=== PATIENT | male | born 1950 | race Caucasian/White ===

== ENCOUNTER 2017-08-03 09:51 | Inpatient (IN) | payer OTHER ==
[~2017-08-03] VITALS: Ht 165.1 cm; Wt 53.1 kg
[2017-08-03] MEDS ORDERED: ONDANSETRON 4 MG INJ IV STA (10:52)
[2017-08-03] MEDS ORDERED: INSULIN REGULAR, HUMAN 100 UNIT/1 ML 3ML VIAL SC ONE (11:00)
[2017-08-03] MEDS ORDERED: PANTOPRAZOLE 40 MG INJ IV ONE (11:00)
[2017-08-03] MEDS ORDERED: SOD CHLORIDE 0.9% 500 ML IV ONE (11:00)
--- NOTE | 2017-08-03 11:16 | ERA ---
ER Documentation Chief Complaint Date/Time DATE: 08/03/17 TIME: 11:12 Chief Complaint MISSED DIALYSIS, HIGH BGL HPI Patient is a 66-year-old male who presents with 2 days of generalized weakness and multiple episodes of vomiting. The patient states that he has been checking his blood sugar and it is been reading high. The patient is on dialysis, but missed dialysis on Friday due to transportation not arriving. Patient reports epigastric pain. He denies fever, cough, shortness of breath, chest pain. ROS All systems reviewed and are negative except as per history of present illness. Medications Home Meds Reported Medications Pantoprazole* (Pantoprazole*) 40 Mg Tablet.dr, 40 MG PO AC BREAKFAST DINNER, TAB 08/03/17 Megestrol Acetate* (Megestrol Acetate*) 400 Mg/10 Ml Susp, 10 MG PO DAILY, ML 08/03/17 Calcium Acetate* (Calcium Acetate*) 667 Mg Capsule, 1334 MG PO WITH MEALS, #60 CAP 08/03/17 Glipizide* (Glipizide*) 10 Mg Tablet, 10 MG PO AC BREAKFAST DINNER, TAB 08/03/17 Insulin Aspart (Novolog Mix (70/30)) 100 Units/Ml Soln, 0 SC WITH BREAKFAST DINNE, EA TAKE 25 UNITS-QAM AND 20 UNITS-QPM 08/03/17 Discontinued Scripts Cephalexin* (Keflex*) 500 Mg Capsule, 500 MG PO QID for 7 Days, CAP Prov:VANESSA CORREA MD 08/03/17 Allergies Allergies: Coded Allergies: No Known Allergy (Unverified , 08/03/17) PMhx/Soc Past medical history: Diabetes mellitus, end-stage renal disease Past surgical history: Left arm fistula Social history: Denies tobacco or alcohol. Hx Miscellaneous Medical Probl: Yes (kidney failure, htn, dm) Hx Alcohol Use: No Hx Substance Use: No Hx Tobacco Use: No Smoking Status: Never smoker FmHx Noncontributory Physical Exam Vitals Vital Signs Date Time Temp Pulse Resp B/P Pulse Ox O2 Delivery O2 Flow Rate FiO2 08/03/17 16:07 92 18 167/78 100 08/03/17 15:00 96 18 187/76 100 08/03/17 13:31 88 18 100 21 08/03/17 13:13 91 18 207/87 96 08/03/17 12:27 87 18 174/75 96 08/03/17 10:29 98.7 88 18 178/84 96 Physical Exam Const: Alert, ill-appearing, Vomiting coffee-ground emesis Head: Atraumatic Eyes: Normal Conjunctiva, Mild pallor, no icterus ENT: Normal External Ears, Nose and Mouth.Tacky mucous membranes Neck: Full range of motion..~ No meningismus. Resp: Clear to auscultation bilaterally, No wheezes, no rales Cardio: Tachycardia, regular rhythm, no murmurs Abd: Soft, Tender in the epigastrium, non distended. Skin: No petechiae or rashes Back: No midline or flank tenderness Ext: No cyanosis, 1+ pitting edema bilateral shins, mild edema to bilateral hands Neur: Awake and alert, Cranial nerves II through XII intact bilaterally, strength and sensation full in 4 extremities Psych: Normal Mood and Affect Result Diagram: 08/03/17 1102 08/03/17 1102 Results 24 hrs Laboratory Tests Test 08/03/17 09:56 08/03/17 10:51 08/03/17 11:02 08/03/17 12:21 Bedside Glucose > 595mg/dL > 595mg/dL Blood Gas Specimen Source Blood venous Arterial Blood Date Drawn 08/03/2017 12:09:50 PM Arterial Blood Gas Puncture Site OTHER [place] Test N/A Venous Blood pH 7.215 Venous Blood pCO2 (Temp Corrected) 36.3mmHG Venous Blood pO2 (Temp Corrected) 45.0mmHG Venous Blood HCO3 14.4mmol/L Venous Blood Oxygen Saturation 77.3mmHG Venous Blood Base Excess -12.5mmol/L Venous Blood Total Hemoglobin 10.9g/dl Venous Blood Oxyhemoglobin 76.8% Venous Blood Methemoglobin 0.3% Carboxyhemoglobin 0.3% Blood Gas Temperature 37.0C Blood Gas Modality ROOM AIR FiO2 21.0% Blood Gas Notified Whom CW Blood Gas Notified Time 08/03/2017 12:16:51 PM White Blood Count 8.710^3/ul Red Blood Count 3.0110^6/ul Hemoglobin 9.8g/dl Hematocrit 27.6% Mean Corpuscular Volume 91.7fl Mean Corpuscular Hemoglobin 32.6pg Mean Corpuscular Hemoglobin Concent 35.5g/dl Red Cell Distribution Width 12.1% Platelet Count 9710^3/UL Mean Platelet Volume 13.5fl Neutrophils % 92.1% Lymphocytes % 2.9% Monocytes % 4.4% Eosinophils % 0.1% Basophils % 0.2% Nucleated Red Blood Cells % 0.0/100WBC Neutrophils # (Manual) 8.010^3/ul Lymphocytes # 0.310^3/ul Monocytes # 0.410^3/ul Eosinophils # 0.010^3/ul Basophils # 0.010^3/ul Nucleated Red Blood Cells # 0.010^3/ul Prothrombin Time 13.5Sec Prothrombin Time Ratio 1.1 INR International Normalized Ratio 1.03 Activated Partial Thromboplast Time 24.4Sec Sodium Level 121mmol/L Potassium Level 6.1mmol/L Chloride Level 85mmol/L Carbon Dioxide Level 13mmol/L Anion Gap 29 Blood Urea Nitrogen 57mg/dl Creatinine 8.06mg/dl Glucose Level 1224mg/dl Lactic Acid Level 3.2mmol/L Calcium Level 7.7mg/dl Total Bilirubin 0.2mg/dl Direct Bilirubin 0.00mg/dl Indirect Bilirubin 0.2mg/dl Acetone Level (Chemistry) Aspartate Amino Transf (AST/SGOT) 20IU/L Alanine Aminotransferase (ALT/SGPT) 29IU/L Alkaline Phosphatase 124IU/L Troponin I 0.014ng/ml Total Protein 5.7g/dl Albumin 3.5g/dl Globulin 2.20g/dl Albumin/Globulin Ratio 1.59 Lipase 82U/L Test 08/03/17 14:19 08/03/17 15:45 Bedside Glucose > 595mg/dL > 595mg/dL Current Medications Medications (Trade) Dose Ordered Sig/Lise Route PRN Reason Start Time Stop Time Status Last Admin Dose Admin Sodium Chloride (NS) 500 ml @ 500 mls/hr Q1H ONCE IV 08/03/17 11:00 08/03/17 11:59 DC 08/03/17 11:00 Pantoprazole (Protonix Iv) 40 mg ONCE ONCE IV 08/03/17 11:00 08/03/17 11:01 DC 08/03/17 12:15 Ondansetron HCl (Zofran Inj) 4 mg ONCE STAT IV 08/03/17 10:52 08/03/17 10:54 DC 08/03/17 12:14 Insulin Human Regular (Humulin R) 5 unit ONCE ONCE SC 08/03/17 11:00 08/03/17 11:01 DC 08/03/17 12:18 Insulin Human Regular (Humulin R) 5 unit ONCE ONCE IV 08/03/17 13:00 08/03/17 13:01 DC 08/03/17 13:01 Albuterol (Proventil 0.083% (Neb)) 5 mg ONCE STAT HHN 08/03/17 12:40 08/03/17 12:43 DC 08/03/17 13:31 Miscellaneous Information 1 ea NOTE XX 08/03/17 13:00 Glucose (Glutose) 15 gm Q15M PRN PO DECREASED GLUCOSE 08/03/17 13:00 Glucose (Glutose) 22.5 gm Q15M PRN PO DECREASED GLUCOSE 08/03/17 13:00 Dextrose (D50w Syringe) 25 ml Q15M PRN IV DECREASED GLUCOSE 08/03/17 13:00 Dextrose (D50w Syringe) 50 ml Q15M PRN IV DECREASED GLUCOSE 08/03/17 13:00 Glucagon (Glucagen) 1 mg Q15M PRN IM DECREASED GLUCOSE 08/03/17 13:00 Glucose 15 gm 15 gm Q15M PRN BUCCAL DECREASED GLUCOSE 08/03/17 13:00 Insulin Human Regular/Sodium Chloride (Novolin-R/NS) 100 ml @ 0 mls/hr TITRATE STAT IV 08/03/17 13:45 08/03/17 13:46 DC 08/03/17 14:25 Pantoprazole (Protonix Tab) 40 mg QAM PO 08/04/17 09:00 UNV Calcium Acetate (Phoslo) 1,334 mg AC MEALS PO 08/03/17 17:30 Miscellaneous Information (* Miscellaneous Pharmacy Order) Discontinue all previ... PROTOCOL ONCE XX 08/03/17 16:30 08/03/17 16:31 Diagnostic Test (Pha) 1 ea 1 ea Q1H XX 08/03/17 16:30 Insulin Human Regular/Sodium Chloride (Novolin-R/NS) 100 ml @ 0 mls/hr PER PROTOCOL IV 08/03/17 17:00 Insulin Aspart (Novolog Insulin Pen) 3 unit WITH MEALS SC 08/03/17 18:00 UNV Miscellaneous Information (* Miscellaneous Pharmacy Order) Treatment of Hypoglycemia: 1.BG 51... Per protocol XX 08/03/17 16:30 Dextrose (D50w Syringe) 25 ml Q15M PRN IV Till BS 80 mg/dL or above x2 08/03/17 16:30 Dextrose (D50w Syringe) 50 ml Q15M PRN IV Till BS 80 mg/dL or above x2 08/03/17 16:30 Procedures/MDM EKG read by me: Time 1333, rate 88 Rhythm: Normal sinus [place]: Normal Intervals: Normal ST-T waves: no ischemic changes Ectopy: No Q-waves: No Impression: No evidence of ischemia or arrhythmia MDM: Patient is a 66-year-old male with end-stage renal disease and type 1 diabetes who presents to the ER with 2 days of generalized weakness and vomiting. He was found to have elevated blood sugar at greater than 1200, and acidosis with ketosis. These findings are consistent with DKA. The patient was found to have an elevated potassium and was given IV insulin and albuterol. The patient was given a small bolus of fluid due to underlying end-stage renal disease and concern for causing volume overload. The patient missed dialysis yesterday and will need inpatient dialysis. He was started on insulin drip for DKA. The patient is anuric. He has no fever or leukocytosis. He does have a slightly elevated lactic acid, but there is no evidence of infectious source on exam or chest x-ray. He was found to have coffee-ground emesis and was given IV pantoprazole.Despite elevated lactic acid, septic workup was not performed and he was not given large volume IV fluids due to concern for volume overload. He will be admitted to the ICU for treatment of DKA and dialysis for correction of fluid status. He will need repeat hemoglobins and further GI workup. Critical Care Time: 40 minutes Treatments/Evaluations: Close monitoring and treatment of unstable vital signs, cardiorespiratory, and neurologic status, while maintaining tight balance of fluid, respiratory, and cardiac interventions. This time includes discussing the case with the patient and the patient's family. This time does not include all procedures stated elsewhere in this record. This time also includes reviewing old records, labs and radiological studies. This time includes examining and re-examining the patient. Additionally, this time also includes arranging care with admitting and consulting physicians. Departure Diagnosis: Primary Impression: Diabetic ketoacidosis Qualified Code: E10.10 - Diabetic ketoacidosis without coma associated with type 1 diabetes mellitus Additional Impressions: Hyperkalemia Hyponatremia Upper GI bleed End stage renal disease Condition: Serious VANESSA CORREA MD Aug 03, 2017 11:16
[2017-08-03 11:39] LABS: ABNORMAL IP MESSAGE 1; BASOPHILS % 0.2 % (0.0-2.0); EOSINOPHILS % 0.1 % (0.0-7.0); HEMATOCRIT 27.6 % (42.0-52.0); HEMOGLOBIN 9.8 g/dl (14.0-18.0); LYMPHOCYTES # 0.3 10^3/ul (0.8-2.9); LYMPHOCYTES % 2.9 % (15.0-51.0); MEAN CORPUSCULAR HEMOGLOBIN 32.6 pg (29.0-33.0); MEAN CORPUSCULAR HGB CONC 35.5 g/dl (32.0-37.0); MEAN CORPUSCULAR VOLUME 91.7 fl (82.0-101.0); MEAN PLATELET VOLUME 13.5 fl (7.4-10.4); MONOCYTE # 0.4 10^3/ul (0.3-0.9); MONOCYTES % 4.4 % (0.0-11.0); NEUTROPHILS % 92.1 % (39.0-77.0); PLATELET COUNT 97 10^3/UL (140-415); POSITIVE DIFF @See below; RED BLOOD COUNT 3.01 10^6/ul (4.70-6.10); RED CELL DISTRIBUTION WIDTH 12.1 % (11.5-14.5); WHITE BLOOD COUNT 8.7 10^3/ul (4.8-10.8)
[2017-08-03 12:07] LABS: INR 1.03; PROTIME 13.5 Sec (12.2-14.2); PT RATIO 1.1
[2017-08-03 12:08] LABS: PARTIAL THROMBOPLASTIN TIME 24.4 Sec (25.0-35.0)
[2017-08-03 12:17] LABS: MODE ROOM AIR; MetHgb Venous 0.3 %; Sample Type Blood venous; Venous COHb 0.3 %; Venous Fraction OxyHgb 76.8 %; Venous Total Hemglobin 10.9 g/dl
--- NOTE | 2017-08-03 12:19 | RADRPT ---
PROCEDURE: Chest radiograph CLINICAL INDICATION: Hyperglycemia.. COMPARISON: None relevant listed. TECHNIQUE: Single frontal chest radiograph. FINDINGS: The lungs are clear. No pleural effusion or focal parenchymal opacity. The cardiomediastinal silhouette is normal. No suspicious bone lesion. Stent within the left upper extremity. IMPRESSION: No acute cardiopulmonary abnormality. RPTAT: PP Physician Michelle Date Time Electronically viewed and signed by Vasquez Gamez Physician on 08/03/2017 12:19 LG/
[2017-08-03 12:23] LABS: ALBUMIN 3.5 g/dl (3.3-4.9); ALBUMIN/GLOBULIN RATIO 1.59; BILIRUBIN,INDIRECT 0.2 mg/dl (0-1.1); BILIRUBIN,TOTAL 0.2 mg/dl (0.2-1.3); CALCIUM 7.7 mg/dl (8.4-10.2); CREATININE 8.06 mg/dl (0.61-1.24); TOTAL PROTEIN 5.7 g/dl (6.1-8.1)
[2017-08-03 12:35] LABS: TROPONIN-I 0.014 ng/ml (0.00-0.12)
[2017-08-03] MEDS ORDERED: ALBUTEROL 0.083% (NEB) 2.5 MG/3 ML AMP HHN STA (12:40)
[2017-08-03] MEDS ORDERED: GLUCAGON 1 MG INJ IM PRN (13:00)
[2017-08-03] MEDS ORDERED: GLUCOSE GEL 15 GRAM TUBE PO PRN ×2 (13:00)
[2017-08-03] MEDS ORDERED: GLUCOSE GEL 15 GRAM TUBE BUCCAL PRN (13:00)
[2017-08-03] MEDS ORDERED: DEXTROSE 50% 50 ML SYRINGE IV PRN ×4 (13:00→16:30)
[2017-08-03] MEDS ORDERED: INSULIN REGULAR, HUMAN 100 UNIT/1 ML 3ML VIAL IV ONE (13:00)
[2017-08-03 13:15] LABS: POTASSIUM 6.1 mmol/L (3.5-5.1)
[2017-08-03] MEDS ORDERED: NOVMIX SC (13:31)
[2017-08-03] MEDS ORDERED: GLIP-95 PO (13:32)
[2017-08-03] MEDS ORDERED: CALC667C PO (13:32)
[2017-08-03] MEDS ORDERED: PANT40TA4 PO (13:34)
[2017-08-03] MEDS ORDERED: MEG40/1 PO (13:34)
[2017-08-03] MEDS ORDERED: INSULIN HUMAN REGULAR 100 UNIT in SOD CHLORIDE 0.9% 99 ML IV STA (13:45)
[2017-08-03] MEDS ORDERED: CEPH-443 PO (14:18)
--- NOTE | 2017-08-03 16:27 | HP ---
Date/Time of Note Date/Time of Note DATE: 08/03/17 TIME: 16:20 Assessment/Plan VTE Prophylaxis VTE Prophylaxis Intervention: SCD's Assessment/Plan Problems: (1) Uncontrolled type 1 diabetes mellitus with ESRD (end-stage renal disease) Status: Chronic Comment: He has been given some fluids although with his end-stage renal disease he will be as dehydrated as a regular patients. He will be on insulin drip and will need intensive care unit monitoring. He will need to follow his electrolytes. His note the potassium 6.1 will go down with the IV insulin therapy. Regarding his end-stage renal disease he will be seen by his regular customer expert Dr. Clinton Samaniego who I have spoken to about the patient already (2) Lactic acidemia Status: Acute Comment: It is unclear what the cause of this is. He has been cultured and will observe him closely. (3) Thrombocytopenia Status: Chronic Comment: Patient thrombocytopenia is unknown. I actually suspect he may have some degree of cirrhosis and will watch him carefully (4) Anemia Status: Chronic Comment: Likely partially due to his end-stage renal disease. He Epogen as per nephrology Qualifiers: Anemia type: unspecified type Qualified Code: D64.9 - Anemia, unspecified type (5) Onychomycosis Status: Chronic Comment: Lamisil pulse therapy HPI/ROS Admit Date/Time Admit Date/Time August 03, 2017 Hx of Present Illness 66-year-old gentleman who [facility] roughly [facility]. He had establish with dialysis through [facility] with Dr. Laureano Samaniego. Patient is a very poor historian at this time. He has missed at least one episode of dialysis. He came into the emergency room complaining that he needed a physician who needed to read his mind. On evaluation with our emergency department is found to have a blood sugar of 1221 with a modest decrease in bicarb and elevated lactic acid. Other labs are pending at this time. He reports that he does not have much in the way of other medical problems although I am not entirely certain that this is a valid claim ROS Constitutional: no complaints (Eyes fevers chills or sweats) Eyes: no complaints (Denies any ophthalmologic (no eye disease goes with diabetic kidney disease I doubt that he has normal ophthalmologic history () ENT: no complaints Respiratory: no complaints (He denies any cough shortness of breath wheezing) Cardiovascular: no complaints (As any cardiac history and denies any chest pain ) Gastrointestinal: no complaints (Ports no history of GI tract illness although on my exam I suspect he may have portal hypertension) Genitourinary: no complaints Musculoskeletal: no complaints Skin: no complaints Neurologic: confusion Lymphatic: no complaints PMH/Family/Social Past Medical History Diabetes for over 3 decades. He reports he previously been on Lantus with mealtime Humalog. He reports that 2 years ago this was switched to 70/30 insulin 25 units before breakfast 20 units before dinner. He has end-stage renal disease on dialysis. Denies any other medical problems at this time Past Surgical History Left arm dialysis shunt Family History Significant Family History: no pertinent family hx Social History Alcohol Use: none Smoking Status: Never smoker Drug Use: none Exam/Review of Systems Vital Signs Vitals Vital Signs Date Time Temp Pulse Resp B/P Pulse Ox O2 Delivery O2 Flow Rate FiO2 08/03/17 16:07 92 18 167/78 100 08/03/17 13:31 21 08/03/17 10:29 98.7 Exam Exam Is arousable his orientation waxes and wanes Head: atraumatic, normocephalic Eyes: EOMI, nl conjunctiva, nl lids (His left lid droops.), nl sclera, other ( Fundi were not visualized) ENMT: mucosa pink and moist, nl external ears & nose, nl lips & teeth, nl nasal mucosa & septum Neck: non-tender, supple Respiratory: clear to auscultation, normal air movement Cardiovascular: nl pulses, regular rate and rhythm Gastrointestinal: soft, splenomegaly (Believe he has splenomegaly) Musculoskeletal: nl extremities to inspection, nl gait and stance Extremities: normal pulses Neurological: CLINICAL PROFESSOR II-XII intact, confused, nl strength Labs Result Diagram: 08/03/17 1102 08/03/17 1102 Medications Medications Current Medications Miscellaneous Information 1 ea NOTE XX ; Start 08/03/17 at 13:00 Glucose (Glutose) 15 gm Q15M PRN PO DECREASED GLUCOSE; Start 08/03/17 at 13:00 Glucose (Glutose) 22.5 gm Q15M PRN PO DECREASED GLUCOSE; Start 08/03/17 at 13:00 Dextrose (D50w Syringe) 25 ml Q15M PRN IV DECREASED GLUCOSE; Start 08/03/17 at 13:00 Dextrose (D50w Syringe) 50 ml Q15M PRN IV DECREASED GLUCOSE; Start 08/03/17 at 13:00 Glucagon (Glucagen) 1 mg Q15M PRN IM DECREASED GLUCOSE; Start 08/03/17 at 13:00 Glucose (Glutose) 15 gm Q15M PRN BUCCAL DECREASED GLUCOSE; Start 08/03/17 at 13: 00 Pantoprazole (Protonix Tab) 40 mg DAILY@06 PO ; Start 08/04/17 at 06:00 Miscellaneous Information (* Miscellaneous Pharmacy Order) Discontinue all previ... PROTOCOL ONCE XX ; Start 08/03/17 at 16:30; Stop 08/03/17 at 16:31 Diagnostic Test (Pha) (Accu-Chek) 1 ea Q1H XX ; Start 08/03/17 at 16:30 Dextrose (D50w Syringe) 25 ml Q15M PRN IV Till BS 80 mg/dL or above x2; Start 08/03/17 at 16:30 Dextrose (D50w Syringe) 50 ml Q15M PRN IV Till BS 80 mg/dL or above x2; Start 08/03/17 at 16:30 KRISSY CARRANZA MD Aug 03, 2017 16:27
[2017-08-03] MEDS ORDERED: DOCUSATE SODIUM 100 MG CAP PO PRN (16:30)
[2017-08-03] MEDS ORDERED: ACETAMINOPHEN 325 MG TAB PO PRN (16:30)
[2017-08-03] MEDS ORDERED: BISACODYL 10 MG SUPP PR PRN (16:30)
[2017-08-03] MEDS ORDERED: NACL 0.9% 3 ML SYG IV SCH (16:30)
[2017-08-03] MEDS ORDERED: ONDANSETRON 4 MG TAB PO PRN (16:30)
[2017-08-03] MEDS: INSULIN HUMAN REGULAR 100 UNIT in SOD CHLORIDE 0.9% 99 ML IV SCH (16:45)
[2017-08-03] MEDS: ACCU-CHEK XX SCH ×7 (16:45→23:21)
[2017-08-03] MEDS ORDERED: VANCOMYCIN 1 GM in NS 250 ML IVPB SCH (17:00)
[2017-08-03] MEDS ORDERED: VANCOMYCIN IV PER PHARMACY XX SCH (17:00)
[2017-08-03 17:19] LABS: CALCIUM 8.4 mg/dl (8.4-10.2); CREATININE 9.04 mg/dl (0.61-1.24); POTASSIUM 4.9 mmol/L (3.5-5.1)
--- NOTE | 2017-08-03 17:46 | RADRPT ---
PROCEDURE: CT Brain without contrast. CLINICAL INDICATION: Evaluate for subdural hematoma. TECHNIQUE: A CT of the brain was performed on a multidetector CT scanner utilizing axial sections from the skull base through the vertex without contrast. Images were reviewed on a high-resolution Smart[employer] workstation. Exam CTDI = 42.93 mGy and the DLP = 720.23 mGy-cm. One or the following dose reduction techniques were used: -Automated exposure control. -Adjustment of the mA and/or KV according to patient's size. -Use of iterative reconstruction technique COMPARISON: None available FINDINGS: Mild diffuse cerebral and cerebellar atrophy is present. There is proportionate dilatation of the v entricular system and sulci in a symmetric fashion. There is prominence of the extraaxial spaces sec ondary to atrophy. There is no evidence of intracranial hemorrhage, mass effect or midline shift. N o abnormal intra-axial or extra-axial fluid collections are seen. There is a punctate extra-axial c alcification just lateral to the left superior temporal gyrus. The density of the brain is normal a nd the oliva/white matter differentiation is well preserved. Mild patchy diffuse deep white matter m icroangiopathic ischemic change is seen. The paranasal sinuses and mastoid air cells appear aerated . Osseous calvarium appears intact. There is a tiny left parietal scalp hematoma present.. Vascul ar calcifications are identified. IMPRESSION: 1. No evidence of acute intracranial pathology. No evidence of acute intracranial hemorrhage. 2. Age-related volume loss and small vessel ischemic changes. 3. Tiny left parietal scalp hematoma. 4. Punctate extra-axial calcification just lateral to the left superior temporal gyrus. 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 5. Intracranial atherosclerosis. RPTAT: [facility] Physician Mazin Date Time Electronically viewed and signed by Physician Mazin on 08/03/2017 17:45 /
[2017-08-03] MEDS: CALCIUM ACETATE 667 MG CAP PO SCH (19:21)
[2017-08-03] MEDS: INSULIN ASPART [NOVOLOG] 3 ML PEN SC SCH (19:22)
[2017-08-03 19:35] LABS: ALBUMIN 3.9 g/dl (3.3-4.9); ALBUMIN/GLOBULIN RATIO 1.56; BILIRUBIN,INDIRECT 0.1 mg/dl (0-1.1); BILIRUBIN,TOTAL 0.1 mg/dl (0.2-1.3); CALCIUM 8.4 mg/dl (8.4-10.2); CREATININE 9.05 mg/dl (0.61-1.24); POTASSIUM 4.5 mmol/L (3.5-5.1); TOTAL PROTEIN 6.4 g/dl (6.1-8.1)
[2017-08-03] MEDS: AMLODIPINE 2.5 MG TAB PO SCH (20:41)
[2017-08-03] MEDS: TERBINAFINE 250 MG TAB PO SCH (20:41)
[2017-08-03 21:24] LABS: CALCIUM 8.4 mg/dl (8.4-10.2); CREATININE 9.11 mg/dl (0.61-1.24); POTASSIUM 4.2 mmol/L (3.5-5.1)
[2017-08-04] VITALS (38 sets, daily range): BP systolic 110–179; BP diastolic 55–91; PULSE 74–95; RESP 10–22; TEMP 98.5; Ht 165.1 cm; Wt 53.1 kg
[2017-08-04] MEDS: ACCU-CHEK XX SCH ×11 (00:30→09:30)
[2017-08-04 00:41] LABS: CALCIUM 8.7 mg/dl (8.4-10.2); CREATININE 9.26 mg/dl (0.61-1.24)
[2017-08-04] MEDS: INSULIN HUMAN REGULAR 100 UNIT in SOD CHLORIDE 0.9% 99 ML IV SCH ×2 (01:25→07:18)
[2017-08-04] MEDS ORDERED: hydrALAzine 20 MG INJ IV PRN (04:00)
[2017-08-04] MEDS ORDERED: DEXTROSE 5% 1,000 ML IV SCH (06:00)
[2017-08-04] MEDS: PANTOPRAZOLE (EC) 40 MG TAB PO SCH (06:12)
[2017-08-04 06:31] LABS: BASOPHILS % 0.1 % (0.0-2.0); EOSINOPHILS # 0.1 10^3/ul (0.0-0.5); EOSINOPHILS % 0.9 % (0.0-7.0); HEMATOCRIT 27.1 % (42.0-52.0); LYMPHOCYTES # 0.9 10^3/ul (0.8-2.9); LYMPHOCYTES % 9.6 % (15.0-51.0); MEAN CORPUSCULAR HEMOGLOBIN 31.6 pg (29.0-33.0); MEAN CORPUSCULAR HGB CONC 36.9 g/dl (32.0-37.0); MEAN CORPUSCULAR VOLUME 85.8 fl (82.0-101.0); MONOCYTE # 1.2 10^3/ul (0.3-0.9); MONOCYTES % 13.2 % (0.0-11.0); NEUTROPHILS % 75.9 % (39.0-77.0); PLATELET COUNT 112 10^3/UL (140-415); RED BLOOD COUNT 3.16 10^6/ul (4.70-6.10); RED CELL DISTRIBUTION WIDTH 11.8 % (11.5-14.5)
[2017-08-04 06:49] LABS: ALBUMIN 3.4 g/dl (3.3-4.9); ALBUMIN/GLOBULIN RATIO 1.25; CREATININE 9.23 mg/dl (0.61-1.24); POTASSIUM 3.8 mmol/L (3.5-5.1); TOTAL PROTEIN 6.1 g/dl (6.1-8.1)
[2017-08-04 06:57] LABS: T3 UPTAKE 38.7 % (23.5-40.5)
[2017-08-04] MEDS: CALCIUM ACETATE 667 MG CAP PO SCH ×3 (07:05→18:02)
[2017-08-04 07:10] LABS: THYROID STIMULATING HORMONE 1.6 MIU/L (0.465-4.680)
[2017-08-04] MEDS: INSULIN ASPART [NOVOLOG] 3 ML PEN SC SCH ×3 (07:35→18:00)
[2017-08-04] MEDS ORDERED: INSULIN GLARGINE [LANtus] 3 ML PEN SC SCH (08:00)
--- NOTE | 2017-08-04 08:04 | CONS ---
DATE OF ADMISSION: 08/03/2017 DATE OF CONSULTATION: 08/04/2017 TYPE OF CONSULTATION: Nephrology REASON FOR CONSULTATION: End-stage renal disease. HISTORY OF PRESENT ILLNESS: This is a 66-year-old male with a past medical history of end-stage renal disease on dialysis Friday, , Friday. Access is a left AV fistula. His primary envelope folder, Dr. Miguel Samaniego. The patient came to the Emergency Room for apparent altered mental status. The patient, in the Emergency Room was complaining about weakness, had multiple episodes of vomiting. The patient, upon arrival, had an elevated blood sugar level of greater than 1000. He was placed on an insulin drip and admitted to the Intensive Care Unit. While in the Intensive Care Unit, the patient had improvement in his serum glucose levels (have come down now to within normal limits of 79. The patient denies any hemoptysis, hematemesis or hematochezia. PAST MEDICAL HISTORY: History of end-stage renal disease, history of diabetes, history of anemia, mineral bone disorder. PAST SURGICAL HISTORY: The patient has a left arm AV fistula. MEDICATIONS: The patient's medications have been reviewed. FAMILY HISTORY: Noncontributory. SOCIAL HISTORY: He does not drink, smoke or do drugs. REVIEW OF SYSTEMS: A 14-point review of systems conducted. Pertinent positives are stated in the HPI and otherwise negative. PHYSICAL EXAMINATION: VITAL SIGNS: Blood pressure is 152/73. Respirations 11. Pulse 77. Temperature 98.3. HEENT: Head is normocephalic. NECK: Supple. HEART: Regular rate. LUNGS: Showed diminished breath sounds at base. ABDOMEN: Soft. Nontender to palpation. No rebound or guarding. EXTREMITIES: Negative for clubbing, cyanosis. No edema. DERMATOLOGIC: No rashes. MUSCULOSKELETAL: No joint effusion. NEUROLOGIC: No change in exam. LABORATORY: Data shows sodium 127, potassium 4.0, chloride 88, BUN 72, creatinine 9.26, glucose is 614. White count 8.7, hemoglobin 9.8, hematocrit 27.8, and platelet count 97. ABG was reviewed. IMAGING STUDIES: CT scan of the brain showed no acute findings. History of healed neurocysticercosis. Chest x-ray shows no acute findings. IMPRESSION AND PLAN: This is a 58-year-old male who presents with: 1. End-stage renal disease. The patient is on dialysis Friday, , Friday, with access left arteriovenous fistula. Plan for hemodialysis today and tomorrow. We will dialyze with a 3-hour, 3K bath, calcium 2.5, ultrafiltration as tolerated. 2. Anemia of end-stage renal disease. We will monitor hemoglobin and hematocrit levels and give Epogen with hemodialysis. 3. Hyponatremia. Etiology in part due to end-stage renal disease in conjunction with hypoglycemia. The patient be dialyzed with 140 sodium bath. 4. Mineral bone disorder. Monitor calcium and phosphorus levels. 5. Uncontrolled diabetes. The patient remains on insulin drip. I greatly appreciate Endocrinology's evaluation. We will follow up recommendations. 6. Lactic acidosis. Etiology is unclear. Repeat a lactic acid level. Possibly related to underlying systemic inflammatory response syndrome. Thank you for this interesting consult. It will be a pleasure to follow the patient with you throughout the hospital course. Dictated By: Michael Baker DO /joey/arturo /Document#: [id number]
[2017-08-04] MEDS: AMLODIPINE 2.5 MG TAB PO SCH (08:42)
[2017-08-04] MEDS: TERBINAFINE 250 MG TAB PO SCH ×2 (09:00→21:43)
[2017-08-04] MEDS: LINAGLIPTIN 5 MG TABLET PO SCH (09:26)
--- NOTE | 2017-08-04 10:32 | RADRPT ---
PROCEDURE: Complete abdominal and retroperitoneum ultrasound. CLINICAL INDICATION: Rule out cirrhosis and portal hypertension. Abdominal pain. Elevated LFTs. TECHNIQUE: Valdovinos scale and color doppler ultrasound images of the abdomen and retroperitoneum. COMPARISON: None FINDINGS: Liver: Size:15.9 cm Morphology:Normal. Echogenicity:Normal. Focal lesions: None. Portal vein: Patent. Hepatic veins:Patent. Biliary System: Gallbladder:Gallbladder wall thickening with minimal pericholecystic fluid. Gallstones:None. Biliary dilatation:None. CBD diameter: 5.3 mm Pancreas: Pancreatic head:Normal. Pancreatic body/tail:Not visualized. Focal lesion:None. Spleen: Size (length):10.10 cm Appearance:Normal. Focal lesions:None. Kidneys: Right kidney length: 7.0 cm Left kidney length: 7.0 cm Echogenicity:Normal. Hydronephrosis:None. Focal lesions:None. Aorta and IVC: Diameter:Normal. Blood flow:Normal. Abdominal cavity: Free fluid:None. Other findings:None. IMPRESSION: 1. Mild gallbladder wall thickening with normal pericholecystic fluid. Please consider HIDA scan f or more complete assessment to definitively exclude acute cholecystitis. 2. No liver or spleen abnormality is identified at this time. RPTAT: PP .Luis Mae MD, Date Time Electronically viewed and signed by .Luis Mae MD, MD on 08/04/2017 10:32 .B/
--- NOTE | 2017-08-04 13:55 | PN ---
Date/Time of Note Date/Time of Note DATE: 08/04/17 TIME: 13:42 Assessment/Plan Lines/Catheters IV Catheter Type (from [facility]): Peripheral IV Urinary Cath still in place: No Assessment/Plan Assessment/Plan 1. HONK 2. Lactic acidosis 3. ESRD 4. thrombocytopenia 5. HYponatremia PLAN: Tele transfer Off insulin drip Subjective 24 Hr Interval Summary Free Text/Dictation Patient seen and examined. now off insulin drip, lethargic, tolerating diet per nursing Exam/Review of Systems Vital Signs Vitals Vital Signs Date Time Temp Pulse Resp B/P Pulse Ox O2 Delivery O2 Flow Rate FiO2 08/04/17 12:00 98.0 86 10 138/72 100 Room Air 08/03/17 13:31 21 Intake and Output 08/03/17 08/03/17 08/04/17 15:00 23:00 07:00 Intake Total 112.0 ml Balance 112.0 ml Results Result Diagram: 08/04/17 0540 08/04/17 0540 Results 24 hrs Laboratory Tests Test 08/03/17 14:19 08/03/17 15:45 08/03/17 16:29 08/03/17 16:50 Bedside Glucose > 595 *H > 595 *H > 595 *H Sodium Level 123 L Potassium Level 4.9 Chloride Level 82 L Carbon Dioxide Level 16 L Anion Gap 30 H Blood Urea Nitrogen 68 H Creatinine 9.04 H Glucose Level 1235 *H Lactic Acid Level 5.6 *H Calcium Level 8.4 Test 08/03/17 17:32 08/03/17 19:08 08/03/17 19:42 08/03/17 20:53 Bedside Glucose > 595 *H > 595 *H Sodium Level 124 L 125 L Potassium Level 4.5 4.2 Chloride Level 83 L 87 L Carbon Dioxide Level 17 L 19 L Anion Gap 29 H 23 H Blood Urea Nitrogen 65 H 65 H Creatinine 9.05 H 9.11 H Glucose Level 1114 *H 936 #*H Calcium Level 8.4 8.4 Total Bilirubin 0.1 L Direct Bilirubin 0.00 Indirect Bilirubin 0.1 Aspartate Amino Transf (AST/SGOT) 23 Alanine Aminotransferase (ALT/SGPT) 23 Alkaline Phosphatase 118 Total Protein 6.4 Albumin 3.9 Globulin 2.50 Albumin/Globulin Ratio 1.56 Test 08/03/17 23:19 08/04/17 00:04 9/4/17 03:18 08/04/17 04:36 Bedside Glucose > 595 *H 289 H 147 Sodium Level 127 L Potassium Level 4.0 Chloride Level 88 L Carbon Dioxide Level 23 Anion Gap 20 H Blood Urea Nitrogen 72 H Creatinine 9.26 H Glucose Level 614 #*H Calcium Level 8.7 Test 08/04/17 05:31 08/04/17 05:40 08/04/17 06:35 08/04/17 07:03 Bedside Glucose 79 47 *L 137 White Blood Count 9.0 Red Blood Count 3.16 L Hemoglobin 10.0 L Hematocrit 27.1 L Mean Corpuscular Volume 85.8 Mean Corpuscular Hemoglobin 31.6 Mean Corpuscular Hemoglobin Concent 36.9 Red Cell Distribution Width 11.8 Platelet Count 112 L Mean Platelet Volume 12.0 H Neutrophils % 75.9 Lymphocytes % 9.6 L Monocytes % 13.2 H Eosinophils % 0.9 Basophils % 0.1 Nucleated Red Blood Cells % 0.0 Neutrophils # (Manual) 6.9 Lymphocytes # 0.9 Monocytes # 1.2 H Eosinophils # 0.1 Basophils # 0.0 Nucleated Red Blood Cells # 0.0 Sodium Level 132 L Potassium Level 3.8 Chloride Level 92 L Carbon Dioxide Level 24 Anion Gap 20 H Blood Urea Nitrogen 75 H Creatinine 9.23 H Glucose Level 70 # Lactic Acid Level 2.7 *H Calcium Level 9.0 Phosphorus Level 5.7 H Total Bilirubin 0.0 L Direct Bilirubin 0.00 Indirect Bilirubin 0.0 Aspartate Amino Transf (AST/SGOT) 20 Alanine Aminotransferase (ALT/SGPT) 26 Alkaline Phosphatase 84 Total Protein 6.1 Albumin 3.4 Globulin 2.70 Albumin/Globulin Ratio 1.25 Thyroid Stimulating Hormone (TSH) 1.600 Free Thyroxine Index 2.28 Thyroxine (T4) 5.9 Triiodothyronine (T3) Uptake 38.7 Test 08/04/17 07:14 08/04/17 08:45 08/04/17 11:52 Bedside Glucose 128 106 178 Medications Medications Current Medications Miscellaneous Information 1 ea NOTE XX ; Start 08/03/17 at 13:00 Glucose (Glutose) 15 gm Q15M PRN PO DECREASED GLUCOSE; Start 08/03/17 at 13:00 Glucose (Glutose) 22.5 gm Q15M PRN PO DECREASED GLUCOSE; Start 08/03/17 at 13:00 Dextrose (D50w Syringe) 25 ml Q15M PRN IV DECREASED GLUCOSE; Start 08/03/17 at 13:00 Dextrose (D50w Syringe) 50 ml Q15M PRN IV DECREASED GLUCOSE Last administered on 08/04/17 06:42; Admin Dose 50 ML; Start 08/03/17 at 13:00 Glucagon (Glucagen) 1 mg Q15M PRN IM DECREASED GLUCOSE; Start 08/03/17 at 13:00 Glucose (Glutose) 15 gm Q15M PRN BUCCAL DECREASED GLUCOSE; Start 08/03/17 at 13: 00 Pantoprazole (Protonix Tab) 40 mg DAILY@06 PO Last administered on 08/04/17 06: 12; Admin Dose 40 MG; Start 08/04/17 at 06:00 Dextrose (D50w Syringe) 25 ml Q15M PRN IV Till BS 80 mg/dL or above x2; Start 08/03/17 at 16:30 Dextrose (D50w Syringe) 50 ml Q15M PRN IV Till BS 80 mg/dL or above x2; Start 08/03/17 at 16:30 Terbinafine HCl (Lamisil) 250 mg BID PO Last administered on 08/03/17 20:41; Admin Dose 250 MG; Start 08/03/17 at 21:00; Stop 08/10/17 at 20:59 Ondansetron HCl (Zofran Tab) 4 mg Q6H PRN PO NAUSEA AND/OR VOMITING; Start 08/03 at 16:30 Acetaminophen (Tylenol Tab) 650 mg Q6H PRN PO PAIN LEVEL 1-3 OR FEVER; Start at 16:30 Docusate Sodium (Colace) 100 mg Q12H PRN PO CONSTIPATION; Start 08/03/17 at 16: 30 Bisacodyl (Dulcolax Supp) 10 mg DAILY PRN [place] CONSTIPATION; Start 08/03/17 at 16: 30 Amlodipine Besylate (Norvasc) 2.5 mg DAILY PO Last administered on 08/03/17 20: 41; Admin Dose 2.5 MG; Start 08/03/17 at 20:30 Hydralazine HCl 10 mg 10 mg Q4H PRN IV For SBP > 160; Start 08/04/17 at 04:00 Dextrose (D5W) 1,000 ml @ 50 mls/hr Q20H IV Last administered on 08/04/17 06: 07; Admin Dose 50 MLS/HR; Start 08/04/17 at 06:00 Linagliptin (Tradjenta) 5 mg DAILY PO Last administered on 08/04/17 09:26; Admin Dose 5 MG; Start 08/04/17 at 09:00 Insulin Glargine (Lantus) 4 unit BID@08,20 SC Last administered on 08/04/17 09: 28; Admin Dose 4 UNIT; Start 08/04/17 at 08:00 Miscellaneous Information (*Rx Drug Level Order Reminder*) RANDOM VANCOMYCIN LEVEL ... ONCE ONCE XX ; Start 08/05/17 at 05:00; Stop 08/05/17 at 05:01 ROXANNA CHAVEZ Aug 04, 2017 13:53
[2017-08-04] MEDS ORDERED: SOD CHLORIDE 0.9% 1,000 ML IV SCH (14:00)
[2017-08-04] MEDS ORDERED: INSULIN GLARGINE [LANtus] 3 ML PEN SC ONE (18:00)
[2017-08-04] MEDS ORDERED: INSULIN ASPART [NOVOLOG] 3 ML PEN SC ONE (18:00)
[2017-08-04] MEDS: INSULIN GLARGINE [LANtus] 3 ML PEN SC SCH (20:16)
[2017-08-05] VITALS (23 sets, daily range): BP systolic 110–203; BP diastolic 55–90; PULSE 83–99; RESP 11–20
[2017-08-05] MEDS: PANTOPRAZOLE (EC) 40 MG TAB PO SCH (05:12)
[2017-08-05 05:27] LABS: BASOPHILS % 0.4 % (0.0-2.0); EOSINOPHILS # 0.1 10^3/ul (0.0-0.5); EOSINOPHILS % 1.3 % (0.0-7.0); HEMATOCRIT 29.6 % (42.0-52.0); HEMOGLOBIN 10.2 g/dl (14.0-18.0); LYMPHOCYTES % 13.7 % (15.0-51.0); MEAN CORPUSCULAR HEMOGLOBIN 30.9 pg (29.0-33.0); MEAN CORPUSCULAR HGB CONC 34.5 g/dl (32.0-37.0); MEAN CORPUSCULAR VOLUME 89.7 fl (82.0-101.0); MEAN PLATELET VOLUME 12.5 fl (7.4-10.4); MONOCYTE # 0.8 10^3/ul (0.3-0.9); MONOCYTES % 10.9 % (0.0-11.0); NEUTROPHILS % 73.1 % (39.0-77.0); PLATELET COUNT 114 10^3/UL (140-415); RED CELL DISTRIBUTION WIDTH 12.5 % (11.5-14.5)
--- NOTE | 2017-08-05 05:47 | HP ---
DATE OF ADMISSION: 08/03/2017 HISTORY OF PRESENT ILLNESS: The patient has been seen and examined today. He has now turned off the insulin drip and he tolerated his breakfast per the staff. However, he reports poor appetite for lunch. He does remain quite lethargic and weak. He tells me he was ambulatory prior to hospitalization, but feels he is too weak to walk right now. PHYSICAL EXAMINATION: VITAL SIGNS: Temperature 98.0, pulse 86, respirations 10, blood pressure 138/72, saturation 100 percent on room air. GENERAL: Lethargic male, alert, oriented, calm, in no distress. HEENT: Head normocephalic. Pupils equal and reactive. Mucous membranes slightly dry. Pharynx . NECK: Supple. CHEST: Clear with diminished breath sounds bilaterally. HEART: S1, S2 without added sounds or murmurs. ABDOMEN: Soft, nontender, nondistended, normoactive bowel sounds. EXTREMITIES: No lower extremity edema. SKIN: Negative for rash. LABORATORY DATA: Serum sodium 132, which is improved from prior, his creatinine is 9.23, BUN 75, lactic acid 2.7, which is elevated. The rest is unremarkable. Thyroid profile is normal today. Phosphorus is elevated. CBC has normal white count with a chronic normocytic anemia and mild thrombocytopenia with a platelet count of 112. There are no neutrophils predominance and there are no bands. IMAGING: He did have an abdominal ultrasound that showed mild gallbladder wall thickening with normal pericholecystic . HIDA scan definitely active cholecystitis. No abnormality. The last chest x-ray was yesterday and it showed no acute pulmonary abnormality. ASSESSMENT: A 66-year-old male, who has presented to the emergency room with 2 days of generalized weakness and vomiting. 1. that is now improved, status post insulin drip, now off insulin drip. 2. 3. End-stage renal disease on hemodialysis. 4. Hyponatremia that is now improved. 5. Thrombocytopenia. 6. History of lactic acidosis likely secondary to number 1. PLAN: . Continue diabetic diet and insulin therapy. I appreciate endocrinology input in the management of this patient. Continue monitoring and checking lactic acid levels and continue supportive care. . For prophylaxis . Dictated By: Lyndon Rowe MD /joey/hang /Document#: [id number]
[2017-08-05 06:03] LABS: CALCIUM 8.6 mg/dl (8.4-10.2); CREATININE 6.31 mg/dl (0.61-1.24); PHOSPHORUS 5.1 mg/dl (2.5-4.9)
[2017-08-05] MEDS: INSULIN GLARGINE [LANtus] 3 ML PEN SC SCH ×2 (08:48→20:17)
[2017-08-05] MEDS: INSULIN ASPART [NOVOLOG] 3 ML PEN SC SCH ×3 (08:48→17:46)
[2017-08-05] MEDS: CALCIUM ACETATE 667 MG CAP PO SCH ×3 (08:57→17:38)
[2017-08-05] MEDS: TERBINAFINE 250 MG TAB PO SCH ×2 (09:16→20:19)
[2017-08-05] MEDS: LINAGLIPTIN 5 MG TABLET PO SCH (09:16)
[2017-08-05] MEDS: AMLODIPINE 2.5 MG TAB PO SCH (09:16)
--- NOTE | 2017-08-05 09:58 | PN ---
DATE: 08/05/2017 SUBJECTIVE DATA: The patient is clinically improving. Had hemodialysis yesterday, tolerated well. OBJECTIVE DATA: VITAL SIGNS: Blood pressure is 133/88, respirations 15, pulse 86, temperature 98.5. HEENT: Head is normocephalic. NECK: Supple. HEART: Regular rate. LUNGS: Show diminished breath sounds at the base. ABDOMEN: Soft, nontender to palpation. No rebound or guarding. EXTREMITIES: Negative for clubbing, cyanosis. No edema. DERMATOLOGIC: Clean. No rashes. MUSCULOSKELETAL: No joint effusion. NEUROLOGIC: No change in exam. LABORATORY AND DIAGNOSTIC DATA: Shows sodium 139, potassium 4.0, BUN 39, creatinine 6.31. White count 7.0, hemoglobin 10.2, crit 29.6, platelet count is 114. ASSESSMENT AND PLAN: 1. End-stage renal disease. The patient is on dialysis Friday, , Friday. Will have dialysis again today to keep on schedule. Dialyze 3 hours, 3 potassium bath, calcium 2.5. 2. Anemia of end-stage renal disease. Monitor H and H levels. We will give Epogen with hemodialysis. 3. Hyponatremia, resolved. 4. Metabolic bone disorder. Continue to monitor calcium and phosphorus levels. 5. Diabetes, improved. Continue current medical management. Follow up with Endocrinology. 6. Lactic acidosis, improved. Etiology is unclear. 7. Gallbladder wall thickening. Rule out acute cholecystitis. The patient is pending a possible HIDA scan. Dictated By: Michael Baker DO /joey/[email or web address] /Document#: [id number]
[2017-08-05] MEDS: VANCOMYCIN 1 GM in NS 250 ML IVPB SCH ×2 (11:00→12:53)
--- NOTE | 2017-08-05 13:19 | CONS ---
Date/Time of Note Date/Time of Note DATE: 08/05/17 TIME: 13:13 Assessment/Plan Assessment/Plan Problems: (1) Sepsis syndrome Status: Acute Comment: Patient presented to the hospital with alteration in mental status, tachycardia, dehydration, hyperglycemia out of control, elevated white count, and lactic acidosis. With dialysis, hydration, antibiotics he has resolved his parameters and now is close to baseline state. Please note his database remains a challenge and he is relatively new to the physicians here. (2) Uncontrolled type 1 diabetes mellitus with ESRD (end-stage renal disease) Status: Chronic Comment: Sugar control has improved. This was H at bedtime as opposed to DKA. The question is raised as to what might of set this off. His abdominal ultrasound is not perfectly normal I will go ahead and order the HIDA scan to complete the evaluation (3) Lactic acidemia Status: Resolved Comment: Resolved (4) Thrombocytopenia Status: Chronic Comment: This persists. I am concerned this may represent underlying liver disease. (5) Anemia Status: Chronic Comment: Noted. At least part of this is due to his chronic renal failure. Qualifiers: Anemia type: unspecified type Qualified Code: D64.9 - Anemia, unspecified type (6) Onychomycosis Status: Chronic Comment: On pulse therapy now Consultation Date/Type/Reason Admit Date/Time Aug 03, 2017 at 16:31 Initial Consult Date August 05, 2017 Type of Consultation: Endocrinology Reason for Consultation Diabetes mellitus type 2 with hyperosmolar hyper glycemic state; end-stage renal disease; probable sepsis syndrome Referring Provider: ROXANNA CHAVEZ 24 HR Interval Summary Free Text/Dictation Older gentleman is feeling better than when he was admitted to the hospital on August 03, 2017. Blood sugar control has improved according to the patient. Constitutional: improved Detailed Summary Respiratory: no complaints Cardiovascular: no complaints Gastrointestinal: no complaints Genitourinary: no complaints Exam/Review of Systems Vital Signs Vitals Vital Signs Date Time Temp Pulse Resp B/P Pulse Ox O2 Delivery O2 Flow Rate FiO2 08/05/17 12:05 83 08/05/17 11:00 98.6 18 152/72 100 Room Air 08/03/17 13:31 21 Intake and Output 08/04/17 08/04/17 08/05/17 15:00 23:00 07:00 Intake Total 1260 ml 760 ml 350 ml Output Total 3500 ml 0 ml 0 ml Balance -2240 ml 760 ml 350 ml Exam Modestly oriented gentleman in no kassandra distress Neck: non-tender, supple Respiratory: clear to auscultation, normal air movement Gastrointestinal: nl liver, spleen, soft Results Result Diagram: 08/05/17 0421 08/05/17 0421 Results 24 hrs Laboratory Tests Test 08/04/17 17:32 08/04/17 20:14 08/05/17 00:13 08/05/17 04:21 Bedside Glucose 304 H 251 H 87 White Blood Count 7.0 # Red Blood Count 3.30 L Hemoglobin 10.2 L Hematocrit 29.6 L Mean Corpuscular Volume 89.7 Mean Corpuscular Hemoglobin 30.9 Mean Corpuscular Hemoglobin Concent 34.5 Red Cell Distribution Width 12.5 Platelet Count 114 L Mean Platelet Volume 12.5 H Neutrophils % 73.1 Lymphocytes % 13.7 L Monocytes % 10.9 Eosinophils % 1.3 Basophils % 0.4 Nucleated Red Blood Cells % 0.0 Neutrophils # (Manual) 5.1 Lymphocytes # 1.0 Monocytes # 0.8 Eosinophils # 0.1 Basophils # 0.0 Nucleated Red Blood Cells # 0.0 Sodium Level 139 Potassium Level 4.0 Chloride Level 102 # Carbon Dioxide Level 29 Anion Gap 12 # Blood Urea Nitrogen 39 #H Creatinine 6.31 #H Glucose Level 61 L Lactic Acid Level 1.3 Calcium Level 8.6 Phosphorus Level 5.1 H Magnesium Level 2.0 Random Vancomycin Level 9.8 Test 08/05/17 05:09 08/05/17 08:45 08/05/17 11:52 Bedside Glucose 78 199 175 Medications Medications Current Medications Miscellaneous Information 1 ea NOTE XX ; Start 08/03/17 at 13:00 Glucose (Glutose) 15 gm Q15M PRN PO DECREASED GLUCOSE; Start 08/03/17 at 13:00 Glucose (Glutose) 22.5 gm Q15M PRN PO DECREASED GLUCOSE; Start 08/03/17 at 13:00 Dextrose (D50w Syringe) 25 ml Q15M PRN IV DECREASED GLUCOSE; Start 08/03/17 at 13:00 Dextrose (D50w Syringe) 50 ml Q15M PRN IV DECREASED GLUCOSE Last administered on 08/04/17t 06:42; Admin Dose 50 ML; Start 08/03/17 at 13:00 Glucagon (Glucagen) 1 mg Q15M PRN IM DECREASED GLUCOSE; Start 08/03/17 at 13:00 Glucose (Glutose) 15 gm Q15M PRN BUCCAL DECREASED GLUCOSE; Start 08/03/17 at 13: 00 Pantoprazole (Protonix Tab) 40 mg DAILY@06 PO Last administered on 08/05/17 05: 12; Admin Dose 40 MG; Start 08/04/17 at 06:00 Dextrose (D50w Syringe) 25 ml Q15M PRN IV Till BS 80 mg/dL or above x2; Start 08/03/17 at 16:30 Dextrose (D50w Syringe) 50 ml Q15M PRN IV Till BS 80 mg/dL or above x2; Start 08/03/17 at 16:30 Terbinafine HCl (Lamisil) 250 mg BID PO Last administered on 08/05/17 09:16; Admin Dose 250 MG; Start 08/03/17 at 21:00; Stop 08/10/17 at 20:59 Acetaminophen (Tylenol Tab) 650 mg Q6H PRN PO PAIN LEVEL 1-3 OR FEVER; Start at 16:30 Docusate Sodium (Colace) 100 mg Q12H PRN PO CONSTIPATION; Start 08/03/17 at 16: 30 Bisacodyl (Dulcolax Supp) 10 mg DAILY PRN [place] CONSTIPATION; Start 08/03/17 at 16: 30 Amlodipine Besylate (Norvasc) 2.5 mg DAILY PO Last administered on 08/05/17 09: 16; Admin Dose 2.5 MG; Start 08/03/17 at 20:30 Hydralazine HCl (Apresoline) 10 mg Q4H PRN IV For SBP > 160 Last administered on 08/05/17 06:34; Admin Dose 10 MG; Start 08/04/17 at 04:00 Linagliptin (Tradjenta) 5 mg DAILY PO Last administered on 08/05/17 09:16; Admin Dose 5 MG; Start 08/04/17 at 09:00 Insulin Glargine 8 unit 8 unit BID@08,20 SC Last administered on 08/05/17 08:48 ; Admin Dose 8 UNIT; Start 08/04/17 at 20:00 Vancomycin HCl (Vancocin) 250 ml @ 125 mls/hr ONCE IVPB Last administered on t 12:53; Admin Dose 125 MLS/HR; Start 08/05/17 at 10:30; Stop 08/05/17 at 16 :00 KRISSY CARRANZA MD Aug 05, 2017 13:19
--- NOTE | 2017-08-05 21:42 | RADRPT ---
PROCEDURE: HIDA scan CLINICAL INDICATION: 66 -year-old patient with abdominal pain. TECHNIQUE: Following the intravenous injection of 8.8 mCi of Tc-99m Mebrofenin, multiple anterior dynamic images of the abdomen along with numerous planar spot images of the abdomen were obtained up to 90 minutes post injection. COMPARISON: No prior HIDA scans. FINDINGS: The liver is promptly visualized, demonstrates homogeneous distribution of radionuclide. There is a visualization of the common bile duct, gallbladder and gastrointestinal activity within n ormal time. IMPRESSION: No evidence to suggest the presence of common bile or cystic ducts obstruction. RPTAT: QQ .Garima Mccullough MD, MD Date Time Electronically viewed and signed by .Garima Mccullough MD, on 08/05/2017 21:41 .L/
[2017-08-06] VITALS (7 sets, daily range): BP systolic 114–183; BP diastolic 55–99; PULSE 73–81; RESP 18
[2017-08-06] MEDS: PANTOPRAZOLE (EC) 40 MG TAB PO SCH (05:18)
[2017-08-06 07:47] LABS: BASOPHILS % 0.5 % (0.0-2.0); EOSINOPHILS # 0.1 10^3/ul (0.0-0.5); EOSINOPHILS % 2.1 % (0.0-7.0); HEMATOCRIT 32.9 % (42.0-52.0); HEMOGLOBIN 10.9 g/dl (14.0-18.0); LYMPHOCYTES # 1.5 10^3/ul (0.8-2.9); LYMPHOCYTES % 26.2 % (15.0-51.0); MEAN CORPUSCULAR HEMOGLOBIN 31.1 pg (29.0-33.0); MEAN CORPUSCULAR HGB CONC 33.1 g/dl (32.0-37.0); MEAN CORPUSCULAR VOLUME 93.7 fl (82.0-101.0); MEAN PLATELET VOLUME 12.9 fl (7.4-10.4); MONOCYTE # 0.7 10^3/ul (0.3-0.9); MONOCYTES % 12.4 % (0.0-11.0); NEUTROPHILS % 58.5 % (39.0-77.0); PLATELET COUNT 120 10^3/UL (140-415); RED BLOOD COUNT 3.51 10^6/ul (4.70-6.10); RED CELL DISTRIBUTION WIDTH 12.4 % (11.5-14.5); WHITE BLOOD COUNT 5.7 10^3/ul (4.8-10.8)
[2017-08-06] MEDS: LINAGLIPTIN 5 MG TABLET PO SCH (08:05)
[2017-08-06] MEDS: TERBINAFINE 250 MG TAB PO SCH (08:05)
[2017-08-06] MEDS: CALCIUM ACETATE 667 MG CAP PO SCH ×2 (08:05→12:27)
[2017-08-06] MEDS: AMLODIPINE 2.5 MG TAB PO SCH (08:06)
[2017-08-06] MEDS: INSULIN GLARGINE [LANtus] 3 ML PEN SC SCH (08:06)
[2017-08-06 08:10] LABS: CALCIUM 8.7 mg/dl (8.4-10.2); CREATININE 5.26 mg/dl (0.61-1.24); PHOSPHORUS 4.4 mg/dl (2.5-4.9); POTASSIUM 3.6 mmol/L (3.5-5.1)
[2017-08-06] MEDS: INSULIN ASPART [NOVOLOG] 3 ML PEN SC SCH ×2 (08:20→12:33)
--- NOTE | 2017-08-06 09:59 | PN ---
DATE: 08/06/2017 SUBJECTIVE DATA: The patient is stable. No events overnight. No fevers, chills, nausea, vomiting. OBJECTIVE DATA: VITAL SIGNS: Blood pressure is 183/99, respirations 18, pulse 84, temperature 98.5. HEENT: Head is normocephalic. NECK: Supple. HEART: Regular rate. LUNGS: Diminished breath sounds at the base. ABDOMEN: Soft, nontender to palpation. No rebound or guarding. EXTREMITIES: Negative for clubbing, cyanosis. No edema. DERMATOLOGIC: No rashes. MUSCULOSKELETAL: No joint effusion. NEUROLOGIC: No change in exam. MEDICATIONS: Reviewed. LABORATORY AND DIAGNOSTIC DATA: Sodium 140, potassium 3.6, chloride 102, BUN 28, creatinine 5.26. White count 5.7, hemoglobin 10.9, hematocrit 32.9, platelet count is 122,000. ASSESSMENT AND PLAN: 1. End-stage renal disease. Patient is on dialysis Friday, , and Friday. Plan for dialysis tomorrow. 2. Anemia, end-stage renal disease. Monitor hemoglobin and hematocrit levels. Continue Epogen. 3. Hyponatremia resolved. 4. Metabolic bone disorder. Monitor calcium and phosphorus levels. 5. Diabetes. Continue improved. Follow up with Endocrinology. 6. Lactic acidosis. Improved. 7. Gallbladder wall thickening. The patient's is being ruled out for acute cholecystitis. HIDA scan was negative. Dictated By: Michael Baker DO /joey/david /Document#: [id number]
--- NOTE | 2017-08-06 11:39 | EN ---
Date/Time of Note Date/Time of Note Event Note Medicine Medicine Event Note LATE PROGRESS NOTE DATE OF SERVICE: 08/05/17 SUBJECTIVE: patient feeling lethargic, has not been ambulant yet OBJECTIVE: Vitals Vital Signs Date Time Temp Pulse Resp B/P Pulse Ox O2 Delivery O2 Flow Rate FiO2 08/05/17 12:05 83 08/05/17 11:00 98.6 18 152/72 100 Room Air 08/03/17 13:31 21 Intake and Output 08/04/17 08/04/17 08/05/17 15:00 23:00 07:00 Intake Total 1260 ml 760 ml 350 ml Output Total 3500 ml 0 ml 0 ml Balance -2240 ml 760 ml 350 ml Exam Constitutional: alert, oriented, Lethargic, cachectic Head: atraumatic, normocephalic Neck: non-tender, supple Respiratory: clear to auscultation Cardiovascular: regular rate and rhythm Gastrointestinal: S/ NT / ND / +BS Extremities: no edema, good radial pulses Results Result Diagram: 08/05/17 0421 08/05/17 0421 Results 24 hrs Laboratory Tests Test 08/04/17 17:32 08/04/17 20:14 08/05/17 00:13 08/05/17 04:21 Bedside Glucose 304 H 251 H 87 White Blood Count 7.0 # Red Blood Count 3.30 L Hemoglobin 10.2 L Hematocrit 29.6 L Mean Corpuscular Volume 89.7 Mean Corpuscular Hemoglobin 30.9 Mean Corpuscular Hemoglobin Concent 34.5 Red Cell Distribution Width 12.5 Platelet Count 114 L Mean Platelet Volume 12.5 H Neutrophils % 73.1 Lymphocytes % 13.7 L Monocytes % 10.9 Eosinophils % 1.3 Basophils % 0.4 Nucleated Red Blood Cells % 0.0 Neutrophils # (Manual) 5.1 Lymphocytes # 1.0 Monocytes # 0.8 Eosinophils # 0.1 Basophils # 0.0 Nucleated Red Blood Cells # 0.0 Sodium Level 139 Potassium Level 4.0 Chloride Level 102 # Carbon Dioxide Level 29 Anion Gap 12 # Blood Urea Nitrogen 39 #H Creatinine 6.31 #H Glucose Level 61 L Lactic Acid Level 1.3 Calcium Level 8.6 Phosphorus Level 5.1 H Magnesium Level 2.0 Random Vancomycin Level 9.8 Test 08/05/17 05:09 08/05/17 08:45 08/05/17 11:52 Bedside Glucose 78 199 175 Medications Medications Current Medications Miscellaneous Information 1 ea NOTE XX ; Start 08/03/17 at 13:00 Glucose (Glutose) 15 gm Q15M PRN PO DECREASED GLUCOSE; Start 08/03/17 at 13:00 Glucose (Glutose) 22.5 gm Q15M PRN PO DECREASED GLUCOSE; Start 08/03/17 at 13:00 Dextrose (D50w Syringe) 25 ml Q15M PRN IV DECREASED GLUCOSE; Start 08/03/17 at 13:00 Dextrose (D50w Syringe) 50 ml Q15M PRN IV DECREASED GLUCOSE Last administered on 08/04/17 06:42; Admin Dose 50 ML; Start 08/03/17 at 13:00 Glucagon (Glucagen) 1 mg Q15M PRN IM DECREASED GLUCOSE; Start 08/03/17 at 13:00 Glucose (Glutose) 15 gm Q15M PRN BUCCAL DECREASED GLUCOSE; Start 08/03/17 at 13: 00 Pantoprazole (Protonix Tab) 40 mg DAILY@06 PO Last administered on 08/05/17 05: 12; Admin Dose 40 MG; Start 08/04/17 at 06:00 Dextrose (D50w Syringe) 25 ml Q15M PRN IV Till BS 80 mg/dL or above x2; Start 08/03/17 at 16:30 Dextrose (D50w Syringe) 50 ml Q15M PRN IV Till BS 80 mg/dL or above x2; Start 08/03/17 at 16:30 Terbinafine HCl (Lamisil) 250 mg BID PO Last administered on 08/05/17 09:16; Admin Dose 250 MG; Start 08/03/17 at 21:00; Stop 08/10/17 at 20:59 Acetaminophen (Tylenol Tab) 650 mg Q6H PRN PO PAIN LEVEL 1-3 OR FEVER; Start at 16:30 Docusate Sodium (Colace) 100 mg Q12H PRN PO CONSTIPATION; Start 08/03/17 at 16: 30 Bisacodyl (Dulcolax Supp) 10 mg DAILY PRN [place] CONSTIPATION; Start 08/03/17 at 16: 30 Amlodipine Besylate (Norvasc) 2.5 mg DAILY PO Last administered on 08/05/17 09: 16; Admin Dose 2.5 MG; Start 08/03/17 at 20:30 Hydralazine HCl (Apresoline) 10 mg Q4H PRN IV For SBP > 160 Last administered on 08/05/17 06:34; Admin Dose 10 MG; Start 08/04/17 at 04:00 Linagliptin (Tradjenta) 5 mg DAILY PO Last administered on 08/05/17 09:16; Admin Dose 5 MG; Start 08/04/17 at 09:00 Insulin Glargine 8 unit 8 unit BID@08,20 SC Last administered on 08/05/17 08:48 ; Admin Dose 8 UNIT; Start 08/04/17 at 20:00 Vancomycin HCl (Vancocin) 250 ml @ 125 mls/hr ONCE IVPB Last administered on 12:53; Admin Dose 125 MLS/HR; Start 08/05/17 at 10:30; Stop 08/05/17 at 16 :00 ASSESSMENT: A 66-year-old male, who has presented to the emergency room with 2 days of generalized weakness and vomiting. 1. SIRS 2/2 #2 : improved 2. S/p HONK 3. End-stage renal disease on hemodialysis. 4. Hyponatremia that is now improved. 5. Thrombocytopenia. 6. Lactic acidosis likely secondary to number 2. 7. Anemia of CKD 8. Debility and lethargy PLAN: Observe in house for one more day Continue current treatment regimen Continue supportive care Further interventions per clinical course ROXANNA CHAVEZ Aug 06, 2017 11:39
--- NOTE | 2017-08-06 11:42 | PN ---
Date/Time of Note Date/Time of Note DATE: 08/06/17 TIME: 11:39 Assessment/Plan VTE Prophylaxis VTE Prophylaxis Intervention: heparin Lines/Catheters IV Catheter Type (from [facility]): Peripheral IV Urinary Cath still in place: No Assessment/Plan Assessment/Plan Patient to be discharged home today. D/c summary dictated Exam/Review of Systems Vital Signs Vitals Vital Signs Date Time Temp Pulse Resp B/P Pulse Ox O2 Delivery O2 Flow Rate FiO2 08/06/17 11:13 98.1 95 18 176/88 98 08/05/17 11:00 Room Air 08/03/17 13:31 21 Intake and Output 08/05/17 08/05/17 08/06/17 15:00 23:00 07:00 Intake Total 500 ml 750 ml Output Total 3500 ml 0 ml 200 ml Balance -3000 ml 750 ml -200 ml Results Result Diagram: 08/06/17 0641 08/06/17 0641 Results 24 hrs Laboratory Tests Test 08/05/17 11:52 08/05/17 17:08 08/05/17 20:15 08/06/17 06:41 Bedside Glucose 175 117 145 White Blood Count 5.7 Red Blood Count 3.51 L Hemoglobin 10.9 L Hematocrit 32.9 L Mean Corpuscular Volume 93.7 Mean Corpuscular Hemoglobin 31.1 Mean Corpuscular Hemoglobin Concent 33.1 Red Cell Distribution Width 12.4 Platelet Count 120 L Mean Platelet Volume 12.9 H Neutrophils % 58.5 Lymphocytes % 26.2 Monocytes % 12.4 H Eosinophils % 2.1 Basophils % 0.5 Nucleated Red Blood Cells % 0.0 Neutrophils # (Manual) 3.3 Lymphocytes # 1.5 Monocytes # 0.7 Eosinophils # 0.1 Basophils # 0.0 Nucleated Red Blood Cells # 0.0 Sodium Level 140 Potassium Level 3.6 Chloride Level 102 Carbon Dioxide Level 29 Anion Gap 13 Blood Urea Nitrogen 28 #H Creatinine 5.26 H Glucose Level 63 L Calcium Level 8.7 Phosphorus Level 4.4 Magnesium Level 2.0 Test 08/06/17 07:45 Bedside Glucose 76 Medications Medications Current Medications Miscellaneous Information 1 ea NOTE XX ; Start 08/03/17 at 13:00 Glucose (Glutose) 15 gm Q15M PRN PO DECREASED GLUCOSE; Start 08/03/17 at 13:00 Glucose (Glutose) 22.5 gm Q15M PRN PO DECREASED GLUCOSE; Start 08/03/17 at 13:00 Dextrose (D50w Syringe) 25 ml Q15M PRN IV DECREASED GLUCOSE; Start 08/03/17 at 13:00 Dextrose (D50w Syringe) 50 ml Q15M PRN IV DECREASED GLUCOSE Last administered on 08/04/17 06:42; Admin Dose 50 ML; Start 08/03/17 at 13:00 Glucagon (Glucagen) 1 mg Q15M PRN IM DECREASED GLUCOSE; Start 08/03/17 at 13:00 Glucose (Glutose) 15 gm Q15M PRN BUCCAL DECREASED GLUCOSE; Start 08/03/17 at 13: 00 Pantoprazole (Protonix Tab) 40 mg DAILY@06 PO Last administered on 08/06/17 05: 18; Admin Dose 40 MG; Start 08/04/17 at 06:00 Dextrose (D50w Syringe) 25 ml Q15M PRN IV Till BS 80 mg/dL or above x2; Start 08/03/17 at 16:30 Dextrose (D50w Syringe) 50 ml Q15M PRN IV Till BS 80 mg/dL or above x2; Start 08/03/17 at 16:30 Terbinafine HCl (Lamisil) 250 mg BID PO Last administered on 08/06/17 08:05; Admin Dose 250 MG; Start 08/03/17 at 21:00; Stop 08/10/17 at 20:59 Acetaminophen (Tylenol Tab) 650 mg Q6H PRN PO PAIN LEVEL 1-3 OR FEVER; Start at 16:30 Docusate Sodium (Colace) 100 mg Q12H PRN PO CONSTIPATION; Start 08/03/17 at 16: 30 Bisacodyl (Dulcolax Supp) 10 mg DAILY PRN SC CONSTIPATION; Start 08/03/17 at 16: 30 Amlodipine Besylate (Norvasc) 2.5 mg DAILY PO Last administered on 08/06/17 08: 06; Admin Dose 2.5 MG; Start 08/03/17 at 20:30 Hydralazine HCl (Apresoline) 10 mg Q4H PRN IV For SBP > 160 Last administered on 08/05/17 06:34; Admin Dose 10 MG; Start 08/04/17 at 04:00 Linagliptin (Tradjenta) 5 mg DAILY PO Last administered on 08/06/17 08:05; Admin Dose 5 MG; Start 08/04/17 at 09:00 Insulin Glargine (Lantus) 8 unit BID@08,20 SC Last administered on 08/06/17 08: 06; Admin Dose 8 UNIT; Start 08/04/17 at 20:00 ROXANNA CHAVEZ Aug 06, 2017 11:42
[2017-08-06] MEDS ORDERED: TERB250T46 PO (11:50)
[2017-08-06] MEDS ORDERED: NOVO3I SC (11:50)
[2017-08-06] MEDS ORDERED: LANT3I SC (11:50)
[2017-08-06] MEDS ORDERED: LINA5TAB PO (11:50)
[2017-08-06] MEDS ORDERED: NIFE30TA2 PO (11:55)
[2017-08-06] MEDS ORDERED: NIFEdipine (XL) 30 MG TAB PO SCH (12:00)
[2017-08-06] MEDS ORDERED: LISI10TA2 PO (15:09)
[2017-08-06] MEDS ORDERED: LEVO750T25 PO (15:13)
[2017-08-06] MEDS ORDERED: LACT1CAP57 PO (15:13)
--- NOTE | 2017-08-06 19:15 | RADRPT ---
Vent Rate: 80 bpm RR Interval: [address] Interval: 134 msec QRS Duration: 80 msec QT Interval: 390 msec QTC Interval: 449 msec P-R-T [place]: 68 - 74 - 74 degrees Sinus rhythm with premature supraventricular complexes Otherwise normal ECG Electronically Signed By: Luis Alexandra [id number]
--- NOTE | 2017-08-07 04:40 | DS ---
DATE OF ADMISSION: 08/03/2017 DATE OF DISCHARGE: 08/06/2017 PRESENTING COMPLAINT: Lethargy and elevated blood sugar. HISTORY OF PRESENT ILLNESS: This is a 66-year-old male with the history of end-stage renal disease, on hemodialysis, who came in after missing 1 episode of dialysis and was found to have elevated blood sugar of 1221 in the Emergency Room with a modest decrease in bicarb and elevated lactic acid. He was admitted to the Intensive Care Unit and started on an insulin drip. The admits diagnoses was (1) hyperosmolar nonketotic acidotic state secondary to poorly controlled diabetes mellitus and (2) poorly controlled diabetes mellitus. HOSPITAL COURSE: He was treated with the insulin drip and he did well. By day 2 of admission, he was transferred out of Intensive Care Unit to the floor. However, he was kept in-house because of the severe lethargy. Because of his lactic acidosis, he was empirically started on antibiotics. The blood cultures came back negative. However, urine sample could not be obtained, as the patient was anuric from hemodialysis. As of today, he has done quite well. He did complain of some diarrhea this morning but, he tells me this has resolved. He states this was because he took 2 percent milk when he is supposed to have fat-free milk. This happens to him quite often. He has received in-house dialysis and at this time his labs are well and he is doing very well. His diabetes is well controlled on his current regimen and he will be discharged. Blood pressure control is still suboptimal now; however, the patient has good outpatient followup and his medications have been adjusted, and he will continue follow up as an outpatient with his primary care doctor. On physical examination, he was also noted to have some onychomycosis and was started on treatment with Lamisil, which will continue for 2 weeks at least as an outpatient. FINAL DIAGNOSES: 1. Acute lethargy secondary hyperosmolar nonketotic acidotic state. 2. Hyperosmolar nonketotic acidotic state. 3. Hyponatremia and hyperkalemia. Now resolved. 4. Metabolic acidosis. Likely secondary to number 2 with lactic acidosis. 5. Diabetes mellitus, type 2, with suboptimal control. Now it is improving and has controlled. 6. Hypertension with improved control. 7. Chronic anemia of chronic kidney disease. 8. New diagnosis of onychomycosis. 9. Chronic thrombocytopenia that has been stable. DISPOSITION: To home. ACTIVITIES: As tolerated. The patient was seen by Physical Therapy who recommended a front wheel walker for home. DIET: Recommended diet is a renal 1800 calorie ADA diet. DISCHARGE MEDICATIONS: 1. NovoLog 3 units with meals. 2. Lantus 8 units b.i.d. 3. Tradjenta 5 mg daily. 4. Procardia XL 30 mg b.i.d. 5. Lamisil 250 mg p.o. b.i.d. 6. Calcium acetate 667 mg 2 tablets with meals. 7. Protonix 40 mg p.o. daily. 8. Lisinopril 10 mg p.o. daily. FOLLOWUP: Follow up with his primary care physician within the next week and continued dialysis, outpatient, with Dr. Samaniego. DISCHARGE CONDITION: Stable. Overall time spent on discharge coordination has been more than half an hour. For further information and clarification, please review the patient's chart and my orders. Dictated By: Lyndon Rowe MD /joey/arturo /Document#: [id number]
== END 2017-08-06 17:13 | disposition home or self-care (01) | DRG 637 ==
LOC: E/R 09:51 → ICU 16:31 → TEL 08-05 10:56
PROVIDERS: ADMIT Internal Medicine; ATTEND Internal Medicine
PROC: 5A1D60Z (ICD-10-PCS; principal; 2017-08-04)
DX: E10.10 Type 1 diabetes mellitus with ketoacidosis without coma (principal); N18.6 End stage renal disease; D69.6 Thrombocytopenia, unspecified; R65.10 Systemic inflammatory response syndrome (SIRS) of non-infectious origin without acute organ dysfunction; E10.21 Type 1 diabetes mellitus with diabetic nephropathy; K92.2 Gastrointestinal hemorrhage, unspecified; E87.1 Hypo-osmolality and hyponatremia; E87.5 Hyperkalemia; N18.9 Chronic kidney disease, unspecified; D63.1 Anemia in chronic kidney disease; E10.22 Type 1 diabetes mellitus with diabetic chronic kidney disease; Z99.2 Dependence on renal dialysis; B35.1 Tinea unguium
CPT/HCPCS: 36415; 70450; 71010; 76700; 78226; 80048; 80053; 80202; 82010; 82803; 82962; 83605; 83690; 83735; 84100; 84436; 84443; 84479; 84484; 85025; 85610; 85730; 87040; 90935; 93005; 94664; 96365; 96366; 96372; 96375; 96376; 97116; 97162; 97530; A9537; C9113; J0360; J1815; J2405; J3370; J7030; J7040; J7070

== ENCOUNTER 2017-08-17 10:39 | Inpatient (IN) | payer OTHER ==
[~2017-08-17] VITALS: Ht 162.6 cm; Wt 58.5 kg
[~2017-08-17 10:39] MED LIST: CALC667C PO; LACT1CAP57 PO; LANT3I SC; LEVO750T25 PO; LINA5TAB PO; LISI10TA2 PO; NIFE30TA2 PO; NOVO3I SC; PANT40TA4 PO; TERB250T46 PO
--- NOTE | 2017-08-17 11:48 | ERA ---
ER Documentation Chief Complaint Date/Time DATE: 08/17/17 TIME: 11:44 Chief Complaint dialysis cath clogged, last dialysis on HPI 66-year-old male who presents with clotted left upper extremity AV fistula. The patient's last dialysis was on . He missed dialysis yesterday. He states that they were unable to access his AV fistula. He denies any shortness of breath, fevers, chills, chest pain. No nausea or vomiting. ROS All systems reviewed and are negative except as per history of present illness. Medications Home Meds Active Scripts Lactobacillus Rhamnosus* (Culturelle*) 1 Each Cap.sprink, 1 CAP PO BID for 7 Days, CAP Prov:CORI CHAVEZRadha . 08/06/17 Lisinopril* (Lisinopril*) 10 Mg Tablet, 10 MG PO DAILY, #30 TAB Prov:CORI CHAVEZRadha . 08/06/17 Nifedipine (Procardia Xl) 30 Mg Tab.er.24, 30 MG PO BID for 30 Days, TAB Prov:CORI CHAVEZRadha . 08/06/17 Linagliptin (TRADJENTA) 5 Mg Tablet, 5 MG PO DAILY for 30 Days, TAB [facility] 08/06/17 Insulin Glargine* (Lantus*) 100 Unit/Ml Soln, 8 UNIT SC BID@08,20 for 30 Days Prov:ROXANNA CHAVEZ Reji 08/06/17 Insulin Aspart* (Novolog Insulin Pen*) 100 Unit/Ml Soln, 3 UNIT SC WITH MEALS for 30 Days Prov:CORI CHAVEZRadha Reji 08/06/17 Terbinafine* (Lamisil*) 250 Mg Tablet, 250 MG PO BID for 14 Days, TAB Prov:ROXANNA CHAVEZ . 08/06/17 Reported Medications Pantoprazole* (Pantoprazole*) 40 Mg Tablet.dr, 40 MG PO AC BREAKFAST DINNER, TAB 08/03/17 Calcium Acetate* (Calcium Acetate*) 667 Mg Capsule, 1334 MG PO WITH MEALS, #60 CAP 08/03/17 Discontinued Scripts Levofloxacin* (Levaquin*) 750 Mg Tablet, 750 MG PO Q48H, #3 TAB Prov:CORI CHAVEZRadha RobertReji 08/06/17 Allergies Allergies: Coded Allergies: No Known Allergy (Unverified , 08/17/17) PMhx/Soc History of Surgery: Yes (Eye surgery, appendicitis) Anesthesia Reaction: No Hx Neurological Disorder: No Hx Respiratory Disorders: No Hx Cardiac Disorders: Yes (HTN) Hx Psychiatric Problems: No Hx Miscellaneous Medical Probl: No Hx Alcohol Use: No Hx Substance Use: No Hx Tobacco Use: No Smoking Status: Never smoker FmHx Family History: No diabetes Physical Exam Vitals Vital Signs Date Time Temp Pulse Resp B/P Pulse Ox O2 Delivery O2 Flow Rate FiO2 08/17/17 12:33 72 16 160/69 100 Room Air 08/17/17 11:49 59 18 225/98 08/17/17 10:41 97.4 70 18 205/83 98 Physical Exam General: Well developed, well nourished, no acute distress Head: Normocephalic, atraumatic. Eyes: Pupils equally reactive, EOM intact ENT: Moist mucous membranes Neck: Supple, no lymphadenopathy Respiratory: Lungs clear bilaterally, no distress Cardiovascular: RRR, no murmurs, rubs, or gallops Abdominal: Soft, non-tender, non-distended, no peritoneal signs : Deferred MSK: No edema, no unilateral swelling, 5/5 strength, Left upper extremity AV fistula without bruit or thrill Neurologic: Alert and oriented, moving all extremities, normal speech, no focal weakness, no cerebellar signs Skin: No rash Psych: Normal mood Result Diagram: 08/17/17 1144 08/17/17 1144 Results 24 hrs Laboratory Tests Test 08/17/17 11:44 White Blood Count 4.810^3/ul Red Blood Count 2.7710^6/ul Hemoglobin 8.7g/dl Hematocrit 27.2% Mean Corpuscular Volume 98.2fl Mean Corpuscular Hemoglobin 31.4pg Mean Corpuscular Hemoglobin Concent 32.0g/dl Red Cell Distribution Width 12.2% Platelet Count 34789^3/UL Mean Platelet Volume 10.9fl Neutrophils % 72.5% Lymphocytes % 17.4% Monocytes % 7.9% Eosinophils % 1.0% Basophils % 0.6% Nucleated Red Blood Cells % 0.0/100WBC Neutrophils # 3.510^3/ul Lymphocytes # 0.810^3/ul Monocytes # 0.410^3/ul Eosinophils # 0.110^3/ul Basophils # 0.010^3/ul Nucleated Red Blood Cells # 0.010^3/ul Prothrombin Time 12.6Sec Prothrombin Time Ratio 1.0 INR International Normalized Ratio 0.94 Activated Partial Thromboplast Time 26.2Sec Sodium Level 138mmol/L Potassium Level 6.3mmol/L Chloride Level 102mmol/L Carbon Dioxide Level 29mmol/L Anion Gap 13 Blood Urea Nitrogen 31mg/dl Creatinine 7.01mg/dl Glucose Level 89mg/dl Calcium Level 8.9mg/dl Current Medications Medications (Trade) Dose Ordered Sig/Lise Route PRN Reason Start Time Stop Time Status Last Admin Dose Admin Hydralazine HCl (Apresoline) 20 mg ONCE ONCE IV 08/17/17 12:00 08/17/17 12:01 DC 08/17/17 12:02 Sodium Polystyrene Sulfonate (Kayexalate) 30 gm ONCE STAT PO 08/17/17 12:46 08/17/17 12:48 DC 08/17/17 13:23 Sodium Bicarbonate (Na Bicarb 8.4% Syg) 50 ml ONCE STAT IV 08/17/17 12:46 08/17/17 12:48 DC 08/17/17 13:23 Insulin Human Regular (Humulin R) 10 unit ONCE STAT IV 08/17/17 12:46 08/17/17 12:48 DC 08/17/17 13:19 Dextrose ONCE PRN IV POC BLOOD GLUCOSE <250 MG/DL 08/17/17 13:00 08/17/17 13:24 Calcium Gluconate/ Sodium Chloride (Ca Gluc/NS) 110 ml @ 110 mls/hr ONCE ONCE IVPB 08/17/17 13:00 08/17/17 13:59 08/17/17 13:23 Ondansetron HCl (Zofran Inj) 4 mg ER BRIDGE PRN IV NAUSEA AND/OR VOMITING 08/17/17 13:30 08/18/17 13:29 Acetaminophen (Tylenol Tab) 650 mg ER BRIDGE PRN PO MILD PAIN/FEVER 08/17/17 13:30 08/18/17 13:29 Procedures/MDM EKG, MONITORS, & DIAGNOSTIC IMAGING: EKG: I reviewed and interpreted a 12-lead EKG. Rhythm: Normal sinus rhythm, PVCs Intervals: No abnormalities ST segments: No elevations or depressions T waves: No contiguous inversions Chest x-ray: I reviewed and interpreted a 1 view of the chest Mediastinum: No enlargement Cardiac silhouette: No cardiomegaly Airspace: Clear lung mcmahon bilaterally without evidence of pneumothorax Bones: No evidence of fracture Fistulogram: IMPRESSION: 1. Completely thrombosed outflow vein of the left upper extremity dialysis fistula. RPTAT: QQ LAB INTERPRETATION: End-stage renal disease, hyperkalemia of 6.3 MEDICAL DECISION MAKING: The patient presents with clearly clotted left upper extremity AV fistula that requires thrombectomy. The patient will require screening for hyperkalemia. The patient will require hospitalization with vascular surgery consultation. I had an initial conversation with Dr. Garcia who states that he will put the patient on for surgery tomorrow. However, I also received a phone call from the patient's insurance provider Dr. Quijano. He states that the patient if stable will be transferred to an outside facility. He states that they can initiate care with a vascular surgeon. This is all dependent if the patient has hyperkalemia or not. If the patient remained stable with no evidence of hyperkalemia transfer would be appropriate. ER COURSE: The patient has hyperkalemia without EKG changes. Kayexalate, calcium, bicarb, insulin provided. Dextrose provided. I spoke to Dr. Garcia. He would like a repeat chemistry profile. If the potassium is less than 6 and the patient can wait for thrombectomy tomorrow. However, if elevated he will come in and place a Reji catheter. This information was relayed to Dr. Mansfield. Hydralazine provided for hypertension. I kept the patient and/or family informed of laboratory and diagnostic imaging results throughout the emergency room course. DISPOSITION PLAN: Telemetry admission for management of hyperkalemia, thrombosed AV fistula CONSULTATION: Accepting care team and consultations: I discussed the current laboratory data, diagnostic imaging and emergency care provided. Admitting team: dr Mansfield Admitting team indication: Insurance directed, the patient is unstable for transfer given hyperkalemia Consulting services: Dr. Garcia, nephrology will be notified by the admitting team Departure Diagnosis: Primary Impression: AV fistula thrombosis Qualified Code: T82.868A - Thrombosis of arteriovenous fistula, initial encounter Additional Impressions: Hyperkalemia End stage renal disease on dialysis Hypertensive urgency Condition: MITESH John MD Aug 17, 2017 11:48
[2017-08-17] MEDS ORDERED: hydrALAzine 20 MG INJ IV ONE ×2 (12:00→15:00)
[2017-08-17 12:14] LABS: BASOPHILS % 0.6 % (0.0-2.0); EOSINOPHILS # 0.1 10^3/ul (0.0-0.5); HEMATOCRIT 27.2 % (42.0-52.0); HEMOGLOBIN 8.7 g/dl (14.0-18.0); LYMPHOCYTES # 0.8 10^3/ul (0.8-2.9); LYMPHOCYTES % 17.4 % (15.0-51.0); MEAN CORPUSCULAR HEMOGLOBIN 31.4 pg (29.0-33.0); MEAN CORPUSCULAR VOLUME 98.2 fl (82.0-101.0); MEAN PLATELET VOLUME 10.9 fl (7.4-10.4); MONOCYTE # 0.4 10^3/ul (0.3-0.9); MONOCYTES % 7.9 % (0.0-11.0); NEUTROPHIL # 3.5 10^3/ul (1.6-7.5); NEUTROPHILS % 72.5 % (39.0-77.0); PLATELET COUNT 128 10^3/UL (140-415); RED BLOOD COUNT 2.77 10^6/ul (4.70-6.10); RED CELL DISTRIBUTION WIDTH 12.2 % (11.5-14.5); WHITE BLOOD COUNT 4.8 10^3/ul (4.8-10.8)
--- NOTE | 2017-08-17 12:17 | RADRPT ---
PROCEDURE: XR Chest. CLINICAL INDICATION: Chest pain. TECHNIQUE: Single frontal view. COMPARISON: 08/03/2017. FINDINGS: The lungs are clear. The heart size is normal. There is no pleural effusion or pneumothorax. There is a stent in the soft tissues of the left upper brachial region medially. IMPRESSION: 1. Stent in the soft tissues of the left upper brachial region medially. 2. Otherwise normal chest x-ray. RPTAT: QQ .Aaron Burton MD, MD Date Time Electronically viewed and signed by .Aaron Burton MD, MD on 08/17/2017 12:17 .R/
[2017-08-17 12:32] LABS: INR 0.94; PROTIME 12.6 Sec (12.2-14.2)
[2017-08-17 12:33] LABS: CALCIUM 8.9 mg/dl (8.4-10.2); CREATININE 7.01 mg/dl (0.61-1.24); PARTIAL THROMBOPLASTIN TIME 26.2 Sec (25.0-35.0)
[2017-08-17 12:46] LABS: POTASSIUM 6.3 mmol/L (3.5-5.1)
[2017-08-17] MEDS ORDERED: NA POLYST SULFON 15 GM/60 ML BTL PO STA (12:46)
[2017-08-17] MEDS ORDERED: INSULIN REGULAR, HUMAN 100 UNIT/1 ML 3ML VIAL IV STA (12:46)
[2017-08-17] MEDS ORDERED: NA BICARBONATE 8.4% 50 ML SYG IV STA (12:46)
[2017-08-17] MEDS ORDERED: CALCIUM GLUCONATE 10% 1 GM in SOD CHLORIDE 0.9% 100 ML IVPB ONE (13:00)
--- NOTE | 2017-08-17 13:04 | RADRPT ---
PROCEDURE: US left upper extremity dialysis fistula. CLINICAL INDICATION: Left upper extremity pain and swelling. Malfunctioning left upper extremity d ialysis fistula. TECHNIQUE: Multiple longitudinal and transverse images of the left upper extremity dialysis fistul a was obtained with oliva scale pulsed Doppler, and color Doppler imaging. COMPARISON: None available FINDINGS: There is a dialysis fistula extending from the left brachial artery to the left cephalic vein. The l eft brachial artery is widely patent with normal triphasic flow. The outflow vein is completely thro mbosed with lack of flow and lack of compressibility. IMPRESSION: 1. Completely thrombosed outflow vein of the left upper extremity dialysis fistula. RPTAT: QQ .Aaron Burton MD, MD Date Time Electronically viewed and signed by .Aaron Burton MD, on 08/17/2017 13:04 .R/
[2017-08-17] MEDS: DEXTROSE 50% 50 ML SYRINGE IV PRN (13:24)
[2017-08-17] MEDS ORDERED: ONDANSETRON 4 MG INJ IV PRN (13:30)
[2017-08-17] MEDS ORDERED: ACETAMINOPHEN 325 MG TAB PO PRN (13:30)
[2017-08-17 15:37] LABS: CALCIUM 9.3 mg/dl (8.4-10.2); CREATININE 6.96 mg/dl (0.61-1.24); POTASSIUM 5.2 mmol/L (3.5-5.1)
[2017-08-17] MEDS ORDERED: DEXTROSE 50% 50 ML SYRINGE IV ONE (16:00)
[2017-08-17 16:56] VITALS: Ht 162.6 cm; Wt 58.5 kg
[2017-08-17] MEDS ORDERED: LEVO750T8 PO (17:11)
[2017-08-17] MEDS ORDERED: hydrALAzine 20 MG INJ IV PRN (17:30)
[2017-08-17 17:55] VITALS: BP 190/88; RESP 17
[2017-08-17 18:52] VITALS: BP 155/74
[2017-08-17 20:48] VITALS: PULSE 79
[2017-08-18] VITALS (14 sets, daily range): BP systolic 121–187; BP diastolic 61–82; PULSE 74–91; RESP 18–19
--- NOTE | 2017-08-18 06:04 | HP ---
Date/Time of Note Date/Time of Note DATE: 08/18/17 TIME: 05:53 Assessment/Plan VTE Prophylaxis VTE Prophylaxis Intervention: heparin Lines/Catheters IV [facility] Saline Lock Urinary Cath still in place: No Assessment/Plan Assessment/Plan 1. Clotted left upper extremity AV fistula - Dr. Muniz, vascular surgeon has already been notified -Nephrology to dialyze after declotting or after establishing a new dialysis access 2. ESRD on HD -See #1 3. Hypoglycemia -Patient has a history of insulin-dependent diabetes. He was given 10 units of regular insulin in the ER or correction of potassium, which dropped his blood glucose as low as 28. Patient is asymptomatic and currently his blood glucose is within acceptable range. -Hold insulin for now 4. Insulin-dependent diabetes, poorly controlled with A1c of 13 -See #3 5. Hypertensive urgency -Continue home antihypertensives with adjustment as needed 6. Anemia of chronic disease -There is a 2 g drop in hemoglobin since last admission 10 days ago -Monitor H&H and transfuse as needed HPI/ROS Admit Date/Time Admit Date/Time Aug 17, 2017 at 13:12 Hx of Present Illness This is a 66-year-old male with a history of diabetes, hypertension, ESRD on HD who presented to the emergency department for a clotted AV fistula., He missed dialysis yesterday. Currently patient does not have any complaints. Patient was admitted here 10 days ago with a diagnosis of hyperosmolar nonketotic state. In ER today, his blood pressure was oh 205/83. Labs shows a potassium of 6.3 creatinine 7, BUN 31, hemoglobin 8.7 and a glucose of 89. His A1c is 13. He was given Kayexalate, calcium gluconate, and 10 units of regular insulin. Patient became hypoglycemic with blood glucose has lost 28. Code is 133. . PMH/Family/Social Past Medical History Medical History: diabetes, hypertension, renal disease, other (Anemia of chronic disease) Past Surgical History Past Surgical Hx: other (Left upper extremity AV fistula) Social History Alcohol Use: none Smoking Status: Former smoker Drug Use: none Exam/Review of Systems Vital Signs Vitals Vital Signs Date Time Temp Pulse Resp B/P Pulse Ox O2 Delivery O2 Flow Rate FiO2 08/18/17 04:25 82 08/18/17 03:57 97.8 19 187/82 98 08/17/17 16:05 Room Air Intake and Output 08/17/17 08/17/17 08/18/17 15:00 23:00 07:00 Intake Total 300 ml Balance 300 ml Exam Constitutional: alert, oriented, well developed Head: atraumatic, normocephalic Eyes: EOMI, PERRL Respiratory: clear to auscultation, normal air movement Cardiovascular: regular rate and rhythm Gastrointestinal: non-tender, soft Extremities: other (Left upper extremity AV fistula with) Labs Result Diagram: 08/17/17 1144 08/17/17 1440 Medications Medications Current Medications Dextrose (D50w Syringe) ONCE PRN IV POC BLOOD GLUCOSE <250 MG/DL Last administered on 08/17/17t 13:24; Admin Dose 50 ML; Start 08/17/17 at 13:00 Hydralazine HCl (Apresoline) 10 mg Q4H PRN IV SBP >170mmHg ; Start 08/17/17 at 17:30 Lisinopril (Zestril) 10 mg DAILY PO ; Start 08/18/17 at 09:00; Status UNV Nifedipine (Procardia Xl) 30 mg BID PO ; Start 08/18/17 at 09:00; Status UNV Terbinafine HCl (Lamisil) 250 mg BID PO ; Start 08/18/17 at 09:00; Status UNV Miscellaneous Information (* Miscellaneous Pharmacy Order) Discontinue current oral sulfonylur... ONCE ONCE XX ; Start 08/18/17 at 06:00; Stop 08/18/17 at 06: 01; Status UNV Diagnostic Test (Pha) (Accu-Chek) 1 ea 02 XX ; Start 08/19/17 at 02:00; Status UNV Miscellaneous Information (* Miscellaneous Pharmacy Order) HYPOGLYCEMIA PROTOCOL w... ONCE ONCE XX ; Start 08/18/17 at 06:00; Stop 08/18/17 at 06:01; Status UNV Miscellaneous Information (* Miscellaneous Pharmacy Order) Discontinue all previ... ONCE ONCE XX ; Start 08/18/17 at 06:00; Stop 08/18/17 at 06:01; Status UNV Diagnostic Test (Pha) (Accu-Chek) 1 ea 02 XX ; Start 08/19/17 at 02:00; Status UNV ISSAC CRUZ MD Aug 18, 2017 06:03
[2017-08-18] MEDS ORDERED: GLUCOSE GEL 15 GRAM TUBE PO PRN ×2 (06:30)
[2017-08-18] MEDS ORDERED: GLUCOSE GEL 15 GRAM TUBE BUCCAL PRN (06:30)
[2017-08-18] MEDS ORDERED: GLUCAGON 1 MG INJ IM PRN (06:30)
[2017-08-18] MEDS ORDERED: DEXTROSE 50% 50 ML SYRINGE IV PRN ×2 (06:30)
[2017-08-18] MEDS: INSULIN ASPART [NOVOLOG] 3 ML PEN SC SCH ×4 (07:55→20:46)
[2017-08-18] MEDS: NIFEdipine (XL) 30 MG TAB PO SCH ×2 (09:29→20:36)
[2017-08-18] MEDS: CALCIUM ACETATE 667 MG CAP PO SCH ×3 (09:29→17:55)
[2017-08-18] MEDS: LISINOPRIL 10 MG TAB PO SCH (09:30)
[2017-08-18] MEDS: TERBINAFINE 250 MG TAB PO SCH ×2 (09:30→20:35)
--- NOTE | 2017-08-18 10:28 | PN ---
Date/Time of Note Date/Time of Note DATE: 08/18/17 TIME: 10:28 Assessment/Plan VTE Prophylaxis VTE Prophylaxis Intervention: ambulation Lines/Catheters IV Catheter Type (from [facility]): Saline Lock Urinary Cath still in place: No Assessment/Plan Assessment/Plan 1. Clotted left upper extremity AV fistula - Vascular surgery on board and consult appreciated. On schedule today at 6pm. - Nephrology to dialyze after declotting or after establishing a new dialysis access 2. ESRD on HD -See #1 3. Hypoglycemia -Patient has a history of insulin-dependent diabetes. He has been experiencing episodes of hypoglycemia since his insulin regime was changed from Novolog 70/ 30 to Lantus. Glucose is in normal range now after multiple hypoglycemia readings -Hold insulin for now 4. Insulin-dependent diabetes, poorly controlled with A1c of 13 - front office secretary consulted 5. Hypertensive urgency -Continue home antihypertensives with adjustment as needed 6. Anemia of chronic disease -will continue to monitor and transfuse as needed. no signs of active bleeding Subjective 24 Hr Interval Summary Free Text/Dictation Patient seen and examined. Enjoying sitting by the window by the sunlight. Denies any acute issues. States has been experiencing hypoglycemia for the past few days since he was switched from Novolog 70/30 to Lantus. Exam/Review of Systems Vital Signs Vitals Vital Signs Date Time Temp Pulse Resp B/P Pulse Ox O2 Delivery O2 Flow Rate FiO2 08/18/17 08:19 86 08/18/17 07:29 98.0 19 177/75 99 08/17/17 16:05 Room Air Intake and Output 08/17/17 08/17/17 08/18/17 15:00 23:00 07:00 Intake Total 300 ml Balance 300 ml Exam General: NAD, pleasant, awake and alert CVS: regular rate and rhythm. no murmurs Lungs: CTA b/l. no wheezes or crackles Abd: soft, NT, ND, no rebound or guarding Ext: LUE thrill present distally but no longer palpated. slight edema left hand. Results Result Diagram: 08/17/17 1144 08/17/17 1440 Results 24 hrs Laboratory Tests Test 08/17/17 11:44 08/17/17 14:02 08/17/17 14:40 08/17/17 15:46 White Blood Count 4.8 Red Blood Count 2.77 #L Hemoglobin 8.7 #L Hematocrit 27.2 L Mean Corpuscular Volume 98.2 Mean Corpuscular Hemoglobin 31.4 Mean Corpuscular Hemoglobin Concent 32.0 Red Cell Distribution Width 12.2 Platelet Count 128 L Mean Platelet Volume 10.9 H Neutrophils % 72.5 Lymphocytes % 17.4 Monocytes % 7.9 Eosinophils % 1.0 Basophils % 0.6 Nucleated Red Blood Cells % 0.0 Neutrophils # 3.5 Lymphocytes # 0.8 Monocytes # 0.4 Eosinophils # 0.1 Basophils # 0.0 Nucleated Red Blood Cells # 0.0 Prothrombin Time 12.6 Prothrombin Time Ratio 1.0 INR International Normalized Ratio 0.94 Activated Partial Thromboplast Time 26.2 Sodium Level 138 141 Potassium Level 6.3 *H 5.2 H Chloride Level 102 104 Carbon Dioxide Level 29 29 Anion Gap 13 13 Blood Urea Nitrogen 31 H 31 H Creatinine 7.01 H 6.96 H Glucose Level 89 32 #*L Hemoglobin A1c 13.0 H Calcium Level 8.9 9.3 Bedside Glucose 98 28 *L Test 08/17/17 16:03 08/18/17 07:58 08/18/17 09:01 08/18/17 09:50 Bedside Glucose 133 44 *L 111 125 Medications Medications Current Medications Dextrose (D50w Syringe) ONCE PRN IV POC BLOOD GLUCOSE <250 MG/DL Last administered on 08/17/17 13:24; Admin Dose 50 ML; Start 08/17/17 at 13:00 Hydralazine HCl (Apresoline) 10 mg Q4H PRN IV SBP >170mmHg ; Start 08/17/17 at 17:30 Lisinopril (Zestril) 10 mg DAILY PO Last administered on 08/18/17 09:30; Admin Dose 10 MG; Start 08/18/17 at 09:00 Nifedipine (Procardia Xl) 30 mg BID PO Last administered on 08/18/17 09:29; Admin Dose 30 MG; Start 08/18/17 at 09:00 Terbinafine HCl (Lamisil) 250 mg BID PO Last administered on 08/18/17 09:30; Admin Dose 250 MG; Start 08/18/17 at 09:00 Diagnostic Test (Pha) (Accu-Chek) 1 ea 02 XX ; Start 08/19/17 at 02:00 Diagnostic Test (Pha) (Accu-Chek) 1 ea 02 XX ; Start 08/19/17 at 02:00 Miscellaneous Information 1 ea NOTE XX ; Start 08/18/17 at 06:30 Glucose (Glutose) 15 gm Q15M PRN PO DECREASED GLUCOSE; Start 08/18/17 at 06:30 Glucose (Glutose) 22.5 gm Q15M PRN PO DECREASED GLUCOSE; Start 08/18/17 at 06: 30 Dextrose (D50w Syringe) 25 ml Q15M PRN IV DECREASED GLUCOSE; Start 08/18/17 at 06:30 Dextrose (D50w Syringe) 50 ml Q15M PRN IV DECREASED GLUCOSE; Start 08/18/17 at 06:30 Glucagon (Glucagen) 1 mg Q15M PRN IM DECREASED GLUCOSE; Start 08/18/17 at 06:30 Glucose (Glutose) 15 gm Q15M PRN BUCCAL DECREASED GLUCOSE; Start 08/18/17 at 06 :30 JANES RAMIREZ MD Aug 18, 2017 10:28
[2017-08-18] MEDS ORDERED: EPOETIN 10000 UNITS/1 ML INJ (ESRD) SC SCH (17:00)
--- NOTE | 2017-08-18 17:02 | CONS ---
DATE OF ADMISSION: 08/17/2017 DATE OF CONSULTATION: 08/18/2017 REASON FOR CONSULTATION: End-stage renal disease. REQUESTING PHYSICIAN: Dewayne Molina MD HISTORY OF PRESENT ILLNESS: This is a 66-year-old male with a past medical history of end-stage renal disease on dialysis Friday, , Friday, access left AV fistula. The patient's primary top lift compressor is , who presents to [facility] for evaluation of clotted left upper extremity AV fistula. Patient's last hemodialysis was on . The patient, on Friday, missed dialysis. As a result, he came into the emergency room for evaluation. Upon arrival, patient was noted to be hypokalemic, was given 1 course of Kayexalate. He was then subsequently admitted to telemetry. The patient denies, however, any hemoptysis, hematemesis, or hematochezia. PAST MEDICAL HISTORY: As stated above. History of end-stage renal disease, history of diabetes, history of anemia, hypertension. PAST SURGICAL HISTORY: Left upper extremity AV fistula. FAMILY HISTORY: Noncontributory. SOCIAL HISTORY: Does not drink, smoke, or do drugs actively. MEDICATION: The patient's medications have been reviewed. REVIEW OF SYSTEMS: Fourteen point review of systems conducted. Pertinent positives in HPI, otherwise negative. PHYSICAL EXAMINATION: VITAL SIGNS: Blood pressure is 177/75, respirations 19, pulse 80, temperature 98. HEENT: Head is normocephalic. NECK: Supple. HEART: Regular rate. LUNGS: Show diminished breath sounds at the base. ABDOMEN: Soft, nontender to palpation. No rebound or guarding. EXTREMITIES: Negative for clubbing, cyanosis. No edema. DERMATOLOGIC: Clean. No rashes. MUSCULOSKELETAL: Patient's left AV fistula has no audible thrill, palpable bruit noted. NEUROLOGIC: No focal deficits. LABORATORY: Show sodium 141, potassium 5.2, BUN 31, creatinine 6.96. White count 4.8, hemoglobin 8.7, hematocrit 27.2, platelet count 128. IMPRESSION AND PLAN: This is a 66-year-old male who presents with: 1. End-stage renal disease. The patient's access left arteriovenous fistula. The patient has no audible thrill. There is a palpable bruit. However access may not be functional. Plan is to place a vascular surgery consult with Dr. Garcia for evaluation. We will also get an ultrasound of the arteriovenous fistula. We will attempt hemodialysis today. If arteriovenous fistula is nonfunctional will likely have a temporary catheter placed by vascular surgery for hemodialysis. 2. Hyperkalemia. The patient is status post Kayexalate. Will be dialyzed on a 2 potassium bath. 3. Anemia. Monitor H and H levels. Will give Epogen with hemodialysis. 4. Mineral bone disorder. Will monitor calcium and phosphorus levels. 5. Hypertension. We will ultra filtrate with hemodialysis. Continue current blood pressure regimen. 6. Diabetes with episode of hypoglycemia. Continue to monitor closely. Consider endocrine evaluation. Thank you, Dr. Molina for this interesting consult. It will be a pleasure to follow patient with you throughout the hospital course. Dictated By: Michael Baker DO /joey/jose m /Document#: [id number]
[2017-08-18] MEDS: DEXTROSE 50% 50 ML SYRINGE IV PRN (17:31)
--- NOTE | 2017-08-18 20:25 | CONS ---
Date/Time of Note Date/Time of Note DATE: 08/18/17 TIME: 20:21 Assessment/Plan Assessment/Plan Chief Complaint/Hosp Course End-stage renal disease Problems: Additional Assessment/Plan Clotted left upper extremity AV graft OR Time not available until late tonight Plan to proceed with thrombectomy of left upper extremity AV graft tomorrow Consultation Date/Type/Reason Admit Date/Time Aug 17, 2017 at 13:12 Date of Consultation: Aug 18, 2017 Reason for Consultation Surgical Hx of Present Illness This is a 66-year-old male with a history of end-stage renal disease currently on dialysis. Left arm AV fistula which was found to be clotted Patient had a potassium of 6.3 which was medically treated currently the potassium is 5.2 as of yesterday Gastrointestinal: no complaints Genitourinary: no complaints Musculoskeletal: no complaints Skin: no complaints Neurologic: no complaints Past Medical History Medical History: diabetes, hypertension, renal disease, other (Anemia of chronic disease) Past Surgical History Past Surgical Hx: other (Left upper extremity AV fistula) Social History Alcohol Use: none Smoking Status: Former smoker Drug Use: none Exam/Review of Systems Vital Signs Vitals Vital Signs Date Time Temp Pulse Resp B/P Pulse Ox O2 Delivery O2 Flow Rate FiO2 08/18/17 16:37 121/61 08/18/17 16:29 74 08/18/17 15:30 98.0 19 99 08/17/17 16:05 Room Air Intake and Output 08/17/17 08/17/17 08/18/17 15:00 23:00 07:00 Intake Total 300 ml Balance 300 ml Exam Respiratory: clear to auscultation, normal air movement Cardiovascular: nl pulses, regular rate and rhythm Gastrointestinal: nl liver, spleen, non-tender, soft Results Result Diagram: 08/17/17 1144 08/17/17 1440 Results 24 hrs Laboratory Tests Test 08/18/17 07:58 08/18/17 09:01 08/18/17 09:50 08/18/17 11:51 Bedside Glucose 44 *L 111 125 130 Test 08/18/17 17:15 08/18/17 17:47 08/18/17 18:18 Bedside Glucose 57 L 176 139 Medications Medications Current Medications Dextrose (D50w Syringe) ONCE PRN IV POC BLOOD GLUCOSE <250 MG/DL Last administered on 08/18/17t 17:31; Admin Dose 50 ML; Start 08/17/17 at 13:00 Hydralazine HCl (Apresoline) 10 mg Q4H PRN IV SBP >170mmHg Last administered on 08/18/17 15:38; Admin Dose 10 MG; Start 08/17/17 at 17:30 Lisinopril (Zestril) 10 mg DAILY PO Last administered on 08/18/17 09:30; Admin Dose 10 MG; Start 08/18/17 at 09:00 Nifedipine (Procardia Xl) 30 mg BID PO Last administered on 08/18/17 09:29; Admin Dose 30 MG; Start 08/18/17 at 09:00 Terbinafine HCl (Lamisil) 250 mg BID PO Last administered on 08/18/17 09:30; Admin Dose 250 MG; Start 08/18/17 at 09:00 Diagnostic Test (Pha) (Accu-Chek) 1 ea 02 XX ; Start 08/19/17 at 02:00 Diagnostic Test (Pha) (Accu-Chek) 1 ea 02 XX ; Start 08/19/17 at 02:00 Miscellaneous Information 1 ea NOTE XX ; Start 08/18/17 at 06:30 Glucose (Glutose) 15 gm Q15M PRN PO DECREASED GLUCOSE; Start 08/18/17 at 06:30 Glucose (Glutose) 22.5 gm Q15M PRN PO DECREASED GLUCOSE; Start 08/18/17 at 06: 30 Dextrose (D50w Syringe) 25 ml Q15M PRN IV DECREASED GLUCOSE; Start 08/18/17 at 06:30 Dextrose (D50w Syringe) 50 ml Q15M PRN IV DECREASED GLUCOSE; Start 08/18/17 at 06:30 Glucagon (Glucagen) 1 mg Q15M PRN IM DECREASED GLUCOSE; Start 08/18/17 at 06:30 Glucose (Glutose) 15 gm Q15M PRN BUCCAL DECREASED GLUCOSE; Start 08/18/17 at 06 :30 Epoetin Min (Epogen (Esrd)) 10,000 units MoWeFr@17 SC Last administered on 17:30; Admin Dose 10,000 UNITS; Start 08/18/17 at 17:00 SEN ALMANZA MD Aug 18, 2017 20:25
[2017-08-19] VITALS (7 sets, daily range): BP systolic 118–175; BP diastolic 64–83; PULSE 72–79; RESP 18–20
[2017-08-19] MEDS ORDERED: ACCU-CHEK XX SCH ×2 (02:00)
[2017-08-19 07:35] LABS: EOSINOPHILS # 0.1 10^3/ul (0.0-0.5); HEMATOCRIT 25.3 % (42.0-52.0); HEMOGLOBIN 8.3 g/dl (14.0-18.0); LYMPHOCYTES # 0.7 10^3/ul (0.8-2.9); LYMPHOCYTES % 18.2 % (15.0-51.0); MEAN CORPUSCULAR HEMOGLOBIN 32.3 pg (29.0-33.0); MEAN CORPUSCULAR HGB CONC 32.8 g/dl (32.0-37.0); MEAN CORPUSCULAR VOLUME 98.4 fl (82.0-101.0); MEAN PLATELET VOLUME 11.2 fl (7.4-10.4); MONOCYTE # 0.3 10^3/ul (0.3-0.9); MONOCYTES % 6.8 % (0.0-11.0); NEUTROPHIL # 2.8 10^3/ul (1.6-7.5); NEUTROPHILS % 71.5 % (39.0-77.0); PLATELET COUNT 128 10^3/UL (140-415); RED BLOOD COUNT 2.57 10^6/ul (4.70-6.10); RED CELL DISTRIBUTION WIDTH 12.5 % (11.5-14.5)
[2017-08-19] MEDS: CALCIUM ACETATE 667 MG CAP PO SCH ×2 (07:55→11:12)
[2017-08-19] MEDS: TERBINAFINE 250 MG TAB PO SCH (08:03)
[2017-08-19] MEDS: NIFEdipine (XL) 30 MG TAB PO SCH (08:03)
[2017-08-19] MEDS: LISINOPRIL 10 MG TAB PO SCH (08:03)
[2017-08-19 08:06] LABS: CREATININE 8.39 mg/dl (0.61-1.24); MAGNESIUM 2.1 mg/dl (1.7-2.5); PHOSPHORUS 6.4 mg/dl (2.5-4.9)
[2017-08-19] MEDS: INSULIN ASPART [NOVOLOG] 3 ML PEN SC SCH ×2 (08:09→11:24)
[2017-08-19 08:21] LABS: POTASSIUM 5.1 mmol/L (3.5-5.1)
--- NOTE | 2017-08-19 11:07 | PN ---
DATE: 08/19/2017 SUBJECTIVE DATA: The patient is stable. The patient is pending AV fistula declotting and hemodialysis today. No other events noted. OBJECTIVE DATA: Blood pressure is 156/78, respirations 20, pulse 74, temperature 98.4. HEENT: Head is normocephalic. NECK: Supple. HEART: Regular rate. LUNGS: Diminished breath sounds at the base. ABDOMEN: Soft, nontender to palpation. No rebound or guarding. EXTREMITIES: Negative for clubbing, cyanosis. No edema. DERMATOLOGIC: Clean. No rashes. MUSCULOSKELETAL: No joint effusion. NEUROLOGIC: No change in exam. MEDICATIONS: Reviewed. LABORATORY AND DIAGNOSTIC DATA: Sodium 135, potassium 5.1, BUN 43, creatinine 8.39, phosphorus 6.5. White count 4.2, hemoglobin 8.3, hematocrit 25.3, platelet count is 128,000. ASSESSMENT AND PLAN: 1. End-stage renal disease. The patient has a clotted arteriovenous fistula. The patient is pending declotting today by Dr. Garcia. Plan for hemodialysis following the procedure. 2. Hypokalemia, improved. The patient is status post Kayexalate. Continue to monitor. 3. Anemia. Monitor hemoglobin and hematocrit levels. Will give Epogen with dialysis. 4. Mineral bone disorder. Monitor calcium and phosphorus levels. 5. Hypertension. Continue current blood pressure regimen. We will ultra filtrate with hemodialysis. 6. Diabetes with episode of hypoglycemia. The patient's insulin regimen is being adjusted. Continue to monitor. Dictated By: Michael Baker DO /joey/juan m /Document#: [id number]
--- NOTE | 2017-08-19 14:29 | PN ---
Date/Time of Note Date/Time of Note DATE: 08/19/17 TIME: 14:22 Assessment/Plan VTE Prophylaxis VTE Prophylaxis Intervention: SCD's Lines/Catheters IV [facility]ter Type [facility]from [facility]): Saline Lock Urinary Cath still in place: No Assessment/Plan Assessment/Plan 1. Clotted left upper extremity AV fistula - Vascular surgery on board and consult appreciated. Was not able to performed thrombectomy last night and on the schedule for today - Patient angry and planning to leave despite being told that he is next for the OR. He feels like he has been neglected although it was explained to him emergencies do happen requiring surgeons attention. He was adamant that he just wanted to eat and leave despite being told his kidney function has worsened due to missing 2 dialysis sessions. He is of sound mind and could not reason with him to stay until after the procedure was performed. 2. ESRD on HD -See #1 3. Hypoglycemia- resolved -Patient has a history of insulin-dependent diabetes. He has been experiencing episodes of hypoglycemia since his insulin regime was changed from Novolog 70/ 30 to Lantus. Glucose is in normal range now after multiple hypoglycemia readings -Hold insulin for now while NPO 4. Insulin-dependent diabetes, poorly controlled with A1c of 13 - paraeducator consulted 5. Hypertensive urgency -Continue home antihypertensives with adjustment as needed 6. Anemia of chronic disease -will continue to monitor and transfuse as needed. no signs of active bleeding Subjective 24 Hr Interval Summary Free Text/Dictation Patient denies any new complaints but is frustrated since has been waiting for the procedure since admission. Stating he is upset, hungry, and wanting to leave despite being told he is next on the list for the OR. No acute overnight events. Exam/Review of Systems Vital Signs Vitals Vital Signs Date Time Temp Pulse Resp B/P Pulse Ox O2 Delivery O2 Flow Rate FiO2 08/19/17 12:00 77 08/19/17 11:11 97.9 20 175/83 99 08/17/17 16:05 Room Air Intake and Output 08/18/17 08/18/17 08/19/17 15:00 23:00 07:00 Intake Total 600 ml Balance 600 ml Exam General: NAD, frustrated, awake and alert CVS: regular rate and rhythm. no murmurs Lungs: CTA b/l. no wheezes or crackles Abd: soft, NT, ND, no rebound or guarding Ext: Thrill appreciated. slight edema left hand. Results Result Diagram: 08/19/17 0649 08/19/17 0649 Results 24 hrs Laboratory Tests Test 08/18/17 17:15 08/18/17 17:47 08/18/17 18:18 08/18/17 20:46 Bedside Glucose 57 L 176 139 80 Test 08/19/17 06:49 08/19/17 07:50 08/19/17 11:23 White Blood Count 4.0 L Red Blood Count 2.57 L Hemoglobin 8.3 L Hematocrit 25.3 L Mean Corpuscular Volume 98.4 Mean Corpuscular Hemoglobin 32.3 Mean Corpuscular Hemoglobin Concent 32.8 Red Cell Distribution Width 12.5 Platelet Count 128 L Mean Platelet Volume 11.2 H Neutrophils % 71.5 Lymphocytes % 18.2 Monocytes % 6.8 Eosinophils % 2.0 Basophils % 1.0 Nucleated Red Blood Cells % 0.0 Neutrophils # 2.8 Lymphocytes # 0.7 L Monocytes # 0.3 Eosinophils # 0.1 Basophils # 0.0 Nucleated Red Blood Cells # 0.0 Sodium Level 135 Potassium Level 5.1 Chloride Level 99 Carbon Dioxide Level 28 Anion Gap 13 Blood Urea Nitrogen 43 #H Creatinine 8.39 H Glucose Level 231 #H Calcium Level 8.0 L Phosphorus Level 6.4 H Magnesium Level 2.1 Bedside Glucose 218 138 Medications Medications Current Medications Dextrose (D50w Syringe) ONCE PRN IV POC BLOOD GLUCOSE <250 MG/DL Last administered on 08/18/17 17:31; Admin Dose 50 ML; Start 08/17/17 at 13:00 Hydralazine HCl (Apresoline) 10 mg Q4H PRN IV SBP >170mmHg Last administered on 08/18/17 15:38; Admin Dose 10 MG; Start 08/17/17 at 17:30 Lisinopril (Zestril) 10 mg DAILY PO Last administered on 08/18/17 09:30; Admin Dose 10 MG; Start 08/18/17 at 09:00 Nifedipine (Procardia Xl) 30 mg BID PO Last administered on 08/18/17 20:36; Admin Dose 30 MG; Start 08/18/17 at 09:00 Terbinafine HCl (Lamisil) 250 mg BID PO Last administered on 08/18/17 20:35; Admin Dose 250 MG; Start 08/18/17 at 09:00 Diagnostic Test (Pha) (Accu-Chek) 1 ea 02 XX ; Start 08/19/17 at 02:00 Diagnostic Test (Pha) (Accu-Chek) 1 ea 02 XX ; Start 08/19/17 at 02:00 Miscellaneous Information 1 ea NOTE XX ; Start 08/18/17 at 06:30 Glucose (Glutose) 15 gm Q15M PRN PO DECREASED GLUCOSE; Start 08/18/17 at 06:30 Glucose (Glutose) 22.5 gm Q15M PRN PO DECREASED GLUCOSE; Start 08/18/17 at 06: 30 Dextrose (D50w Syringe) 25 ml Q15M PRN IV DECREASED GLUCOSE; Start 08/18/17 at 06:30 Dextrose (D50w Syringe) 50 ml Q15M PRN IV DECREASED GLUCOSE; Start 08/18/17 at 06:30 Glucagon (Glucagen) 1 mg Q15M PRN IM DECREASED GLUCOSE; Start 08/18/17 at 06:30 Glucose (Glutose) 15 gm Q15M PRN BUCCAL DECREASED GLUCOSE; Start 08/18/17 at 06 :30 Epoetin Min (Epogen (Esrd)) 10,000 units MoWeFr@17 SC Last administered on 17:30; Admin Dose 10,000 UNITS; Start 08/18/17 at 17:00 JANES RAMIREZ MD Aug 19, 2017 14:29
--- NOTE | 2017-08-20 08:05 | DS ---
Date/Time of Note Date/Time of Note DATE: 08/20/17 TIME: 07:49 Discharge Summary Admission/Discharge Info Admit Date/Time Aug 17, 2017 at 13:12 Discharge Date/Time Aug 19, 2017 at 15:20 Discharge Diagnosis Thrombosis of left AV fistula Patient Condition: Good Consults Vascular Surgery, Dr. Garcia and Nephrology, Dr. Baker Hx of Present Illness This is a 66-year-old male with a history of diabetes, hypertension, ESRD on HD who presented to the emergency department for a clotted AV fistula., He missed dialysis yesterday. Currently patient does not have any complaints. Patient was admitted here 10 days ago with a diagnosis of hyperosmolar nonketotic state. In ER today, his blood pressure was 205/83. Labs shows a potassium of 6.3 creatinine 7, BUN 31, hemoglobin 8.7 and a glucose of 89. His A1c is 13. He was given Kayexalate, calcium gluconate, and 10 units of regular insulin. Patient became hypoglycemic with blood glucose of 28. . Hospital Course Patient was admitted and vascular surgery was consulted with plans to perform thrombectomy of left AV fistula clot. Dr. Baker of nephrology was consulted and US left AV showed completely thrombosed outflow vein of the left upper extremity dialysis fistula. Patient was also found to be hypoglycemic after hyperkalemia was treated. Patient was scheduled for OR on 08/18/17 in the pm; however, due to scheduling issues was rescheduled for 08/19/17. Patient was very frustrated about not being able to receive dialysis as well as needing to be kept NPO for the OR. He was explained that he was next on the list for the OR but refused to stay despite discussion from multiple members of the medical team. Patient left AMA. Home Meds Active Scripts Lactobacillus Rhamnosus* (Culturelle*) 1 Each Cap.sprink, 1 CAP PO BID for 7 Days, CAP Prov:SCOTTROXANNA. 08/06/17 Lisinopril* (Lisinopril*) 10 Mg Tablet, 10 MG PO DAILY, #30 TAB Prov:ROXANNA CHAVEZ. 08/06/17 Nifedipine (Procardia Xl) 30 Mg Tab.er.24, 30 MG PO BID for 30 Days, TAB Prov:ROXANNA CHAVEZ. 08/06/17 Linagliptin (TRADJENTA) 5 Mg Tablet, 5 MG PO DAILY for 30 Days, TAB Prov:ROXANNA CHAVEZ 08/06/17 Insulin Glargine* (Lantus*) 100 Unit/Ml Soln, 8 UNIT SC BID@08,20 for 30 Days Prov:ROXANNA CHAVEZ 08/06/17 Insulin Aspart* (Novolog Insulin Pen*) 100 Unit/Ml Soln, 3 UNIT SC WITH MEALS for 30 Days Prov:ROXANNA CHAVEZ 08/06/17 Terbinafine* (Lamisil*) 250 Mg Tablet, 250 MG PO BID for 14 Days, TAB Prov:ROXANNA CHAVEZ 08/06/17 Reported Medications Levofloxacin* (Levofloxacin*) 750 Mg Tablet, 750 MG PO Q48H, TAB 08/17/17 Pantoprazole* (Pantoprazole*) 40 Mg Tablet.dr, 40 MG PO AC BREAKFAST DINNER, TAB 08/03/17 Calcium Acetate* (Calcium Acetate*) 667 Mg Capsule, 1334 MG PO WITH MEALS, #60 CAP 08/03/17 Discontinued Scripts Levofloxacin* (Levaquin*) 750 Mg Tablet, 750 MG PO Q48H, #3 TAB Prov:ROXANNA CHAVEZ 08/06/17 Follow-up Plan Patient will need to follow up with Vascular surgery for thrombectomy of left AV fistula. He will also need to follow up with nephrology and continue dialysis as scheduled. His diabetic medications will need to be adjusted as patient was experiencing hypoglycemia when switched from Novolog 70/30 to Lantus. Primary Care Provider Irvin Thomason MD Time spent on discharge: < 30 minutes Pending Labs Laboratory Tests Test 08/19/17 07:50 08/19/17 11:23 Bedside Glucose 218mg/dL (70-220) 138mg/dL (70-220) JANES RAMIREZ MD Aug 20, 2017 08:05
== END 2017-08-19 15:20 | disposition left against medical advice (07) | DRG 314 ==
LOC: E/R 10:39 → TEL 13:12
PROVIDERS: ADMIT Internal Medicine; ATTEND Internal Medicine
DX: T82.868A Thrombosis due to vascular prosthetic devices, implants and grafts, initial encounter (principal); N18.6 End stage renal disease; I12.0 Hypertensive chronic kidney disease with stage 5 chronic kidney disease or end stage renal disease; E11.22 Type 2 diabetes mellitus with diabetic chronic kidney disease; Z79.84 Long term (current) use of oral hypoglycemic drugs; E11.65 Type 2 diabetes mellitus with hyperglycemia; Z99.2 Dependence on renal dialysis; Z79.4 Long term (current) use of insulin; I16.0 Hypertensive urgency; D63.8 Anemia in other chronic diseases classified elsewhere; E87.5 Hyperkalemia; E11.649 Type 2 diabetes mellitus with hypoglycemia without coma
CPT/HCPCS: 36415; 71010; 80048; 82962; 83036; 83735; 84100; 85025; 85610; 85730; 93005; 93931; 96374; 96375; 96376; J0360; J0610; J1815; Q4081

== ENCOUNTER 2019-04-09 21:36 | Inpatient (IN) | payer MEDICARE, OTHER ==
[~2019-04-09] VITALS: Ht 165.1 cm; Wt 60.8 kg
[~2019-04-09 21:36] MED LIST changes: -LEVO750T25 PO; +LEVO750T8 PO
[2019-04-09] MEDS ORDERED: morphine 4 MG/ML VIAL IV STA (21:47)
[2019-04-09] MEDS ORDERED: hydrALAzine 20 MG INJ IV ONE (23:00)
[2019-04-09] MEDS ORDERED: DEXTROSE 50% 50 ML SYRINGE IV STA (23:48)
[2019-04-09] MEDS ORDERED: niCARdipine-NS 0.1MG/ML DRIP 200 ML IV STA (23:48)
--- NOTE | 2019-04-09 23:59 | HP ---
Date/Time of Note Date/Time of Note DATE: 04/09/19 TIME: 23:59 Assessment/Plan VTE Prophylaxis Pharmacological prophylaxis: heparin Lines/Catheters IV Catheter Type (from Nrs): Saline Lock Assessment/Plan Assessment/Plan 1. Hypoglycemia: Patient with a history of insulin-dependent diabetes -Stabilizing on dextrose -Continue ICU monitoring 2. Hypertensive emergency: Continue nitro drip 3. Large left pleural effusion -Thoracentesis ordered -Hopefully will also improve with dialysis 4. ESRD on HD: Nephrology for dialysis 5. Hyperkalemia: Patient received calcium gluconate and albuterol as well as Kayexalate. Unable to give insulin because of hypoglycemia -Nephrology for dialysis Result Diagram: 04/09/19220104/09/192201 Results 24hrs Laboratory Tests Test 04/09/19 22:02 04/09/19 22:18 04/09/19 22:45 04/09/19 23:47 White Blood Count 7.8 # Red Blood Count 4.66 #L Hemoglobin 14.5 # Hematocrit 46.0 # Mean Corpuscular 98.7 Volume Mean Corpuscular 31.1 Hemoglobin Mean Corpuscular 31.5 L Hemoglobin Concent Red Cell 14.1 Distribution Width Platelet Count 110 L Mean Platelet Volume 12.6 H Immature 0.400 Granulocytes % Neutrophils % 87.0 H Lymphocytes % 4.6 L Monocytes % 7.5 Eosinophils % 0.1 Basophils % 0.4 Nucleated Red Blood 0.0 Cells % Immature 0.030 Granulocytes # Neutrophils # 6.8 Lymphocytes # 0.4 L Monocytes # 0.6 Eosinophils # 0.0 Basophils # 0.0 Nucleated Red Blood 0.0 Cells # Sodium Level 136 Potassium Level Chloride Level 99 Carbon Dioxide Level 27 Anion Gap 10 Blood Urea Nitrogen 41 H Creatinine 6.08 H Est Glomerular 9 L Filtrat Rate mL/min Glucose Level 101 Calcium Level 9.0 Troponin I 0.036 Bedside Glucose 83 35 *L Prothrombin Time 13.0 Prothrombin Time 1.0 Ratio INR International 0.97 Normalized Ratio Activated 31.1 Partial Thromboplast Time HPI/ROS Admit Date/Time Admit Date/Time Hx of Present Illness This is a 68-year-old male with a history of hypertension, ESRD on HD and type I diabetes who was brought to the ER for hypoglycemia. Patient was diaphoretic and appeared weak and lethargic. Also was complaining of shortness of breath. Blood glucose reportedly was as low as 28. When he presented to the ER, he was 83 but quickly dropped to 35. He received dextrose. Patient was also noted to have a potassium of 6.8. Last dialysis was yesterday. Blood pressure also has been as high as 241/83 and I have started him on nitro drip. Chest x-ray shows the following 1. Interval development of left lower thorax opacification likely compressive atelectasis from a large left pleural effusion although left lower lobe pneumonia with a parapneumonic effusion is a differential diagnostic possibilit y. Consider follow-up consultation for thoracentesis. 2. Stable mild cardiac silhouette enlargement with an element of interstitial edema and congestive heart failure difficult to exclude. PMH/Family/Social Past Medical History Past Surgical Hx: other (see hpi) Family History Significant Family History: no pertinent family hx Social History Alcohol Use: none Smoking Status: Never smoker Drug Use: none Exam Exam Constitutional: other (No acute distress) Head: normocephalic, atraumatic Eyes: EOMI, PERRL Respiratory: other (no wheezing or Rhonchi) Cardiovascular: normal pulse Gastrointestinal: soft, non-tender Extremities: normal pulses Medications Current Medications Ondansetron HCl (Zofran Inj) 4 mg ER BRIDGE PRN IV NAUSEA/VOMITING; Start 04/10/19 at 00:00; Stop 04/10/19 at 23:59 Acetaminophen (Tylenol Tab) 650 mg ER BRIDGE PRN PO .MILD PAIN 1-3 OR TEMP; Start 04/10/19 at 00:00; Stop 04/10/19 at 23:59 Dextrose/Sodium Chloride 1,000 ml @ 100 mls/hr Q10H IV ; Start 04/10/19 at 00:00 Nicardipine HCl 200 ml @ 50 mls/hr ONCE STAT IV ; Start 04/09/19 at 23:48; Stop 04/10/19 at 03:47 Coded Allergies: No Known Allergy (Unverified , 08/17/17) Past Surgical History Past Surgical Hx: other Family History Significant Family History: no pertinent family hx Social History Smoking Status: Never smoker Exam/Review of Systems Vital Signs Vitals Vital Signs Date Temp Pulse Resp B/P (MAP) Pulse Ox O2 O2 Flow FiO2 Time Delivery Rate 04/09/19 98.8 73 22 241/83 100 Room Air 4.0 23:05 (135) Nasal Cannula ISSAC CRUZ MD April 09, 2019 23:59
[2019-04-10] VITALS (101 sets, daily range): BP systolic 82–177; BP diastolic 44–122; PULSE 65–89; RESP 9–24; Ht 165.1 cm; Wt 60.8 kg
[2019-04-10] MEDS ORDERED: ALBUTEROL/IPRATROPIUM (NEB) 3 ML AMP NEB PRN
[2019-04-10] MEDS ORDERED: ONDANSETRON 4 MG INJ IV PRN
[2019-04-10] MEDS ORDERED: ACETAMINOPHEN 325 MG TAB PO PRN
[2019-04-10] MEDS: DEXTROSE 5%-0.45% NACL 1,000 ML IV SCH ×2 (00:01→09:58)
[2019-04-10] MEDS ORDERED: NA BICARBONATE 8.4% 50 ML SYG IV STA (00:18)
[2019-04-10] MEDS ORDERED: SODIUM POLYSTYRENE 15 GM KIT (POWDER + SORBITOL) PO STA (00:18)
[2019-04-10] MEDS ORDERED: CA CHLORIDE 10% 10 ML SYRINGE IV STA (00:18)
--- NOTE | 2019-04-10 00:30 | ERD ---
ER Documentation Chief Complaint Chief Complaint Hypoglycemia HPI 68-year-old gentleman history of end-stage renal disease on dialysis, diabetes taking Lantus who presents to the emergency room with hypoglycemia. It appears that EMS is called in this gentleman regularly, he is having difficulty caring for himself at home. He does have some family members but they have medical needs as well. Patient has been hypoglycemic multiple times today. He states compliance with his medications. He has not been eating very much. He d escribes dialysis yesterday. He denies fevers or chills. He does describe some mild shortness of breath. ROS All systems reviewed and are negative except as per history of present illness. Medications Home Meds Active Scripts Lactobacillus Rhamnosus* (Culturelle*) 1 Each Cap.sprink, 1 CAP PO BID for 7 Days, CAP Prov:CORI CHAVEZRadha . 08/06/17 Lisinopril* (Lisinopril*) 10 Mg Tablet, 10 MG PO DAILY, #30 TAB Prov:SCOTTROXANNA Reji 08/06/17 Nifedipine (Procardia Xl) 30 Mg Tab.er.24, 30 MG PO BID for 30 Days, TAB Prov:SCOTTCORIRadha . 08/06/17 Linagliptin (TRADJENTA) 5 Mg Tablet, 5 MG PO DAILY for 30 Days, TAB Prov:CORI CHAVEZRadha Reji 08/06/17 Insulin Glargine* (Lantus*) 100 Unit/Ml Soln, 8 UNIT SC BID@08,20 for 30 Days Prov:SCOTTCORIRadha Reji 08/06/17 Insulin Aspart* (Novolog Insulin Pen*) 100 Unit/Ml Soln, 3 UNIT SC WITH MEALS for 30 Days Prov:LIBRADO CHAVEZYASSINE Reji 08/06/17 Terbinafine* (Lamisil*) 250 Mg Tablet, 250 MG PO BID for 14 Days, TAB Prov:CORI CHAVEZRadha Reji 08/06/17 Reported Medications Levofloxacin* (Levofloxacin*) 750 Mg Tablet, 750 MG PO Q48H, TAB 08/17/17 Pantoprazole* (Pantoprazole*) 40 Mg Tablet.dr, 40 MG PO AC BREAKFAST DINNER, TAB 08/03/17 Calcium Acetate* (Calcium Acetate*) 667 Mg Capsule, 1334 MG PO WITH MEALS, #60 CAP 08/03/17 Allergies Allergies: Coded Allergies: No Known Allergy (Unverified , 08/17/17) PMhx/Soc History of Surgery: Yes (appendectomy, eye surgeries) Anesthesia Reaction: No Hx Neurological Disorder: No Hx Respiratory Disorders: No Hx Cardiac Disorders: Yes (high blood pressure) Hx Psychiatric Problems: No (anemia, HD patient) Hx Miscellaneous Medical Probl: Yes (CKD (Dialysis)) Hx Alcohol Use: Yes (former) Hx Substance Use: No Hx Tobacco Use: No Smoking Status: Never smoker FmHx Family History: diabetes Physical Exam Vitals Vital Signs Date Temp Pulse Resp B/P (MAP) Pulse Ox O2 O2 Flow FiO2 Time Delivery Rate 04/09/19 98.8 73 22 241/83 100 Room Air 4.0 23:05 (135) Nasal Cannula 04/09/19 98.8 75 21 192/87 100 Nasal 4.0 21:45 (122) Cannula 04/09/19 98.8 80 21 192/ 21:40 (122) Physical Exam General: Disheveled, diaphoretic, slightly uncomfortable Head: Normocephalic, atraumatic. Eyes: Pupils equally reactive, EOM intact ENT: Moist mucous membranes Neck: Supple, no lymphadenopathy Respiratory: Decreased aeration in the left lung base Cardiovascular: RRR, no murmurs, rubs, or gallops Abdominal: Soft, non-tender, non-distended, no peritoneal signs : Deferred MSK: No edema, no unilateral swelling, 5/5 strength, left upper extremity fistula with good bruit and thrill Neurologic: Alert and oriented, moving all extremities, normal speech, no focal weakness, no cerebellar signs Skin: No rash Psych: Normal mood Result Diagram: 04/09/19220104/09/192201 Results 24 hrs Laboratory Tests Test 04/09/19 22:02 04/09/19 22:18 04/09/19 22:45 04/09/19 23:47 White Blood Count 7.8 10^3/ul Red Blood Count 4.66 10^6/ul Hemoglobin 14.5 g/dl Hematocrit 46.0 % Mean Corpuscular 98.7 fl Volume Mean Corpuscular 31.1 pg Hemoglobin Mean Corpuscular 31.5 g/dl Hemoglobin Concent Red Cell 14.1 % Distribution Width Platelet Count 110 10^3/UL Mean Platelet 12.6 fl Volume Immature 0.400 % Granulocytes % Neutrophils % 87.0 % Lymphocytes % 4.6 % Monocytes % 7.5 % Eosinophils % 0.1 % Basophils % 0.4 % Nucleated Red Blood 0.0 /100WBC Cells % Immature 0.030 10^3/ul Granulocytes # Neutrophils # 6.8 10^3/ul Lymphocytes # 0.4 10^3/ul Monocytes # 0.6 10^3/ul Eosinophils # 0.0 10^3/ul Basophils # 0.0 10^3/ul Nucleated Red Blood 0.0 10^3/ul Cells # Sodium Level 136 mmol/L Potassium Level 6.8 mmol/L Chloride Level 99 mmol/L Carbon Dioxide 27 mmol/L Level Anion Gap 10 Blood Urea Nitrogen 41 mg/dl Creatinine 6.08 mg/dl Est Glomerular 9 mL/min Filtrat Rate mL/min Glucose Level 101 mg/dl Calcium Level 9.0 mg/dl Troponin I 0.036 ng/ml Bedside Glucose 83 mg/dL 35 mg/dL Prothrombin Time 13.0 Sec Prothrombin Time 1.0 Ratio INR International 0.97 Normalized Ratio Activated 31.1 Sec Partial Thromboplas t Time Current Medications Medications Dose Sig/Lise Start Time Status Last (Trade) Ordered Route PRN Stop Time Admin Dose Reason Admin Morphine 4 mg ONCE STAT 04/09/19 DC 04/09/19 Sulfate IV 21:47 22:16 (morphine) 04/09/19 21:49 Hydralazine 20 mg ONCE ONCE 04/09/19 DC 04/09/19 HCl IV 23:00 23:01 (Apresoline) 04/09/19 23:01 Hydralazine 20 mg ONCE ONCE 04/10/19 DC HCl IV 00:00 (Apresoline) 04/10/19 00:00 Ondansetron 4 mg ER BRIDGE 04/10/19 HCl (Zofran PRN IV 00:00 Inj) NAUSEA/VOMITI 04/10/19 23:59 NG 650 mg ER BRIDGE 04/10/19 Acetaminophen PRN PO 00:00 (Tylenol .MILD PAIN 04/10/19 23:59 Tab) 1-3 OR TEMP Dextrose 25 ml ONCE STAT 04/09/19 DC 04/10/19 (D50w IV 23:48 00:01 Syringe) 04/09/19 23:51 1,000 ml @ Q10H IV 04/10/19 04/10/19 Dextrose/Sodi 100 mls/hr 00:00 00:01 um Chloride Nicardipine 200 ml @ ONCE STAT 04/09/19 04/10/19 HCl 50 mls/hr IV 23:48 00:02 04/10/19 03:47 Ondansetron 4 mg Q6H PRN 04/10/19 UNV HCl (Zofran IV NAUSEA 00:00 Inj) AND/OR VOMITING Albuterol/ 3 ml Q2H RESP 04/10/19 UNV Ipratropium THERAPY PRN 00:00 (Duoneb) NEB SHORTNESS OF BREATH 650 mg Q6H PRN 04/10/19 UNV Acetaminophen PO PAIN 00:00 (Tylenol LEVEL 1-3 OR Liquid) FEVER Famotidine 20 mg Q12 PO 04/10/19 UNV (Pepcid) 09:00 Heparin 5,000 unit Q12 SC 04/10/19 UNV Sodium 09:00 (Porcine) (Heparin (5000 Units/1ml)) 250 ml @ PER 04/10/19 UNV Nitroglycerin 1.5 mls/hr PROTOCOL IV 00:00 / Dextrose Sodium 30 gm ONCE STAT 04/10/19 DC Polystyrene PO 00:18 Sulfonate 04/10/19 00:20 (Kayexelate 15 Gm Kit (Powder+Sorbi bo)) Sodium 50 ml ONCE STAT 04/10/19 DC Bicarbonate IV 00:18 (Na Bicarb 04/10/19 00:20 8.4% Syg) Calcium 1,000 mg ONCE STAT 04/10/19 DC Chloride IV 00:18 (Ca Chloride 04/10/19 00:20 10% Syg) Procedures/MDM EKG, MONITORS, & DIAGNOSTIC IMAGING: EKG: I reviewed and interpreted a 12-lead EKG. Rhythm: Normal sinus rhythm ST Changes: No contiguous ST segment elevations T waves: No contiguous T wave inversions Impression: [No evidence of acute cardiac ischemia] Chest x-ray: I reviewed and interpreted a 1 view of the chest Mediastinum: No enlargement Cardiac silhouette: No cardiomegaly Airspace: Large left-sided pleural effusion Bones: No evidence of fracture LAB INTERPRETATION: I reviewed the laboratory testing and it shows hyperkalemia, hypoglycemia MEDICAL DECISION MAKING: Patient has multiple issues including new left-sided pleural effusion, hypoglycemia, hyperkalemia and likely failure to thrive. The patient has a complex presentation. The patient also has significant hypertension. No headache or confusion to warrant CT imaging of the brain. He denies any chest pain. Troponin negative. Patient warrants multiple interventions and likely requires dialysis. ER COURSE: * The patient is currently protecting his airway and does not require positive pressure ventilation. Initial Accu-Chek was normal * Patient was unable to tolerate oral intake and had a second episode of hypoglycemia. He was then able to take a complex carbohydrate meal. He was given dextrose, dextrose infusion and will require ICU level of care for frequent glucose monitoring * Blood pressure difficult to control. Given the patient's intermittent issues with glucose. Hydralazine dosing was not effective. Patient was started on a Cardene drip for blood pressure control in the setting of hypertensive urgency and emergency * Patient has hyperkalemia, borderline EKG changes. Calcium, bicarbonate, Kayexalate given. No indication for insulin given issues with hypoglycemia. Patient needs dialysis. Admitting team is notifying the dialysis team. * Patient continues to protect his airway. Blood pressure is improving. The patient will be admitted to the intensive care unit for dialysis. The patient likely requires thoracentesis to evaluate his pleural effusion but likely secondary to volume overload and end-stage renal disease. No cough, no fever no white count to suggest underlying pneumonia. Antibiotics not indicated. CONSULTATION: [None] DISPOSITION PLAN: Accepting care team and consultations: I discussed the current laboratory data, diagnostic imaging and emergency care provided. Admitting team: Dr. Molina Admitting team indication: Insurance directed critical Care Note: Total time: 45 minutes Indication/Organ System Threat: Hypertensive emergency, hyperkalemia I spent the above amount of critical care time with the patient, not including billable procedures. This included chart review, consultations, repeat bedside evaluations, and titration of appropriate medications to prevent cardiopulmonary or respiratory collapse. Departure Diagnosis: Primary Impression: Hypoglycemia Additional Impressions: Hyperkalemia Hypertensive emergency Pleural effusion, left End stage renal disease on dialysis Condition: Serious MITESH ANDRADE MD April 10, 2019 00:30
[2019-04-10] MEDS ORDERED: DEXTROSE 50% 50 ML SYRINGE IV PRN (00:45)
[2019-04-10] MEDS ORDERED: GLUCOSE GEL 15 GRAM TUBE PO PRN ×2 (00:45)
[2019-04-10] MEDS ORDERED: GLUCAGON 1 MG INJ IM PRN (00:45)
[2019-04-10] MEDS ORDERED: GLUCOSE GEL 15 GRAM TUBE BUCCAL PRN (00:45)
[2019-04-10] MEDS: DEXTROSE 50% 50 ML SYRINGE IV PRN ×2 (02:03→02:36)
[2019-04-10] MEDS: NITROGLYCERIN 50 MG/D5W (PMX) 250 ML IV SCH ×3 (02:44→19:23)
[2019-04-10] MEDS: ACETAMINOPHEN 650MG/20.3ML CUP PO PRN ×3 (03:57→21:33)
[2019-04-10] MEDS ORDERED: CALCIUM GLUCONATE 10% 2 GM in DEXTROSE 5% 100 ML IVPB ONE (05:00)
[2019-04-10] MEDS ORDERED: NA POLYST SULFON 15 GM/60 ML BTL PO ONE (05:00)
[2019-04-10] MEDS ORDERED: SODIUM POLYSTYRENE 15 GM KIT (POWDER + SORBITOL) PO ONE (05:00)
--- NOTE | 2019-04-10 06:45 | CONS ---
Assessment/Plan Assessment/Plan Assessment/Plan (Daily) 1. acute hyperkalemia with K 7.0 on admission 2. Hypertensive emergency 3. ESRD on HD TTS schedule 4. large fluid pleural effusion possibly due to acute fluid overload with Undelrying infiltrates 5. H/o HTN 6. H/o HL 7. H/o DM Plan: US guided thoracenteis ordered IV abx Levaquin for possibly PNA< Renally dosed to Q 48 hr S/P multiple Rx for hyperkalemia iN ED< will plan for STAT HD now with 2 K bath NTG Drip for HTN urgency, if Continues to run high BP then we will add Nifedipne XL 60mg pO BID continue other home medications for BP pt regular schedule is TTS, will do next HD on Friday then pt will be on TTS schedule after that Thanks for consultation , I will continue to folllow up Consultation Date/Type/Reason Admit Date/Time Date of Consultation: April 10, 2019 Type of Consult NEPHROLOGY Reason for Consultation Acute hyperkalemia, ESRD on HD Requesting Provider: ISSAC CRUZ MD Date/Time of Note DATE: 04/10/19 TIME: 06:45 Hx of Present Illness 68-year-old male with a history of hypertension, ESRD on HD and type I diabetes who was brought to the ER for hypoglycemia. Patient was diaphoretic and appeared weak and lethargic. Also was complaining of shortness of breath. Bl ood glucose reportedly was as low as 28. When he presented to the ER, he was 83 but quickly dropped to 35. He received dextrose. Patient was also noted to have a potassium of 6.8 which bumped to 7 on subsequent labs. Last HD was on . Blood pressure also has been as high as 241/83 and I have started him on nitro drip. Chest x-ray shows large left pleural effusion, pt gest admitted to ICU. Renal has been consulted for acute hyperkalemia, acute fluid overload and HTN emergency. Constitutional: poor po ENT: no complaints Respiratory: cough, pleuritic pain, shortness of breath Cardiovascular: no complaints Gastrointestinal: no complaints Genitourinary: no complaints Musculoskeletal: no complaints Skin: no complaints Neurologic: no complaints Endocrine: no complaints Lymphatic: no complaints Psychological: no complaints Immunologic: no complaints Past Medical History Medical History: diabetes, high cholesterol, hypertension, other (ESRD on HD ) Home Meds Active Scripts Lactobacillus Rhamnosus* (Culturelle*) 1 Each Cap.sprink, 1 CAP PO BID for 7 Days, CAP Prov:ROXANNA CHAVEZ. 08/06/17 Lisinopril* (Lisinopril*) 10 Mg Tablet, 10 MG PO DAILY, #30 TAB Prov:ROXANNA CHAVEZ . 08/06/17 Nifedipine (Procardia Xl) 30 Mg Tab.er.24, 30 MG PO BID for 30 Days, TAB Prov:ROXANNA CHAVEZ . 08/06/17 Linagliptin (TRADJENTA) 5 Mg Tablet, 5 MG PO DAILY for 30 Days, TAB [facility] 08/06/17 Insulin Glargine* (Lantus*) 100 Unit/Ml Soln, 8 UNIT SC BID@08,20 for 30 Days [facility] 08/06/17 Insulin Aspart* (Novolog Insulin Pen*) 100 Unit/Ml Soln, 3 UNIT SC WITH MEALS for 30 Days Prov:ROXANNA CHAVEZ . 08/06/17 Terbinafine* (Lamisil*) 250 Mg Tablet, 250 MG PO BID for 14 Days, TAB Prov:ROXANNA CHAVEZ . 08/06/17 Reported Medications Levofloxacin* (Levofloxacin*) 750 Mg Tablet, 750 MG PO Q48H, TAB 08/17/17 Pantoprazole* (Pantoprazole*) 40 Mg Tablet.dr, 40 MG PO AC BREAKFAST DINNER, TAB 08/03/17 Calcium Acetate* (Calcium Acetate*) 667 Mg Capsule, 1334 MG PO WITH MEALS, #60 CAP 08/03/17 Medications Current Medications Ondansetron HCl (Zofran Inj) 4 mg ER BRIDGE PRN IV NAUSEA/VOMITING Last administered on 04/10/19at 02:03; Admin Dose 4 MG; Start 04/10/19 at 00:00; Stop 04/10/19 at 23:59 Acetaminophen (Tylenol Tab) 650 mg ER BRIDGE PRN PO .MILD PAIN 1-3 OR TEMP; Start 04/10/19 at 00:00; Stop 04/10/19 at 23:59 Dextrose/Sodium Chloride 1,000 ml @ 100 mls/hr Q10H IV Last administered on 04/10/19at 00:01; Admin Dose 100 MLS/HR; Start 04/10/19 at 00:00 Ondansetron HCl (Zofran Inj) 4 mg Q6H PRN IV NAUSEA AND/OR VOMITING; Start 04/10/19 at 00:00 Albuterol/ Ipratropium (Duoneb) 3 ml Q2H RESP THERAPY PRN NEB SHORTNESS OF BREATH Last administered on 04/10/19at 04:34; Admin Dose 3 ML; Start 04/10/19 at 00:00 Acetaminophen (Tylenol Liquid) 650 mg Q6H PRN PO PAIN LEVEL 1-3 OR FEVER Last administered on 04/10/19at 03:57; Admin Dose 650 MG; Start 04/10/19 at 00:00 Famotidine (Pepcid) 20 mg DAILY PO ; Start 04/10/19 at 09:00 Heparin Sodium (Porcine) (Heparin (5000 Units/1ml)) 5,000 unit Q12 SC ; Start 04/10/19 at 09:00 Nitroglycerin/ Dextrose 250 ml @ 1.5 mls/hr PER PROTOCOL IV Last administered on 04/10/19at 02:44; Admin Dose 1.5 MLS/HR; Start 04/10/19 at 00:00 Miscellaneous Information 1 ea NOTE XX ; Start 04/10/19 at 00:45 Glucose (Glutose) 15 gm Q15M PRN PO DECREASED GLUCOSE; Start 04/10/19 at 00:45 Glucose (Glutose) 22.5 gm Q15M PRN PO DECREASED GLUCOSE; Start 04/10/19 at 00:45 Dextrose (D50w Syringe) 25 ml Q15M PRN IV DECREASED GLUCOSE Last administered on 04/10/19at 02:36; Admin Dose 25 ML; Start 04/10/19 at 00:45 Dextrose (D50w Syringe) 50 ml Q15M PRN IV DECREASED GLUCOSE Last administered on 04/10/19at 02:07; Admin Dose 50 ML; Start 04/10/19 at 00:45 Glucagon (Glucagen) 1 mg Q15M PRN IM DECREASED GLUCOSE; Start 04/10/19 at 00:45 Glucose (Glutose) 15 gm Q15M PRN BUCCAL DECREASED GLUCOSE; Start 04/10/19 at 00:45 Calcium Gluconate 2 gm/Dextrose 120 ml @ 60 mls/hr ONCE ONCE IVPB Last administered on 04/10/19at 04:58; Admin Dose 60 MLS/HR; Start 04/10/19 at 05:00; Stop 04/10/19 at 06:59 Allergies: Coded Allergies: No Known Allergy (Unverified , 08/17/17) Past Surgical History Past Surgical Hx: other (AVF surgey for HD access ) Family History Significant Family History: no pertinent family hx Social History Alcohol Use: none Smoking Status: Never smoker Drug Use: none Exam/Review of Systems Exam Vitals Vital Signs Date Temp Pulse Resp B/P (MAP) Pulse Ox O2 O2 Flow FiO2 Time Delivery Rate 04/10/19 69 14 138/49 97 05:45 (78) 04/10/19 Nasal 05:30 Cannula 04/10/19 4.0 04:35 04/10/19 99.2 04:30 Constitutional: distress (moderate distress due tSOB and HTn emergency ) Psych: no complaints Head: normocephalic Eyes: nl conjunctiva ENMT: nl external ears & nose, nl lips & teeth Neck: supple, non-tender Respiratory: congested cough, crackles/rales, diminished breath sounds Cardiovascular: regular rate and rhythm, nl pulses Gastrointestinal: soft, non-tender Musculoskeletal: muscle weakness, swelling Extremities: normal pulses Neurological: MEDICAL CASE MANAGER II-XII intact, nl mental status, nl speech, nl strength Skin: nl turgor, rash or lesions Results Result Diagram: 04/10/19 0352 04/10/19 0351 Results 24hrs Laboratory Tests Test 04/09/19 22:02 04/09/19 22:18 04/09/19 22:45 04/09/19 23:47 White Blood Count 7.8 # Red Blood Count 4.66 #L Hemoglobin 14.5 # Hematocrit 46.0 # Mean Corpuscular 98.7 Volume Mean Corpuscular 31.1 Hemoglobin Mean Corpuscular 31.5 L Hemoglobin Concent Red Cell 14.1 Distribution Width Platelet Count 110 L Mean Platelet Volume 12.6 H Immature 0.400 Granulocytes % Neutrophils % 87.0 H Lymphocytes % 4.6 L Monocytes % 7.5 Eosinophils % 0.1 Basophils % 0.4 Nucleated Red Blood 0.0 Cells % Immature 0.030 Granulocytes # Neutrophils # 6.8 Lymphocytes # 0.4 L Monocytes # 0.6 Eosinophils # 0.0 Basophils # 0.0 Nucleated Red Blood 0.0 Cells # Sodium Level 136 Potassium Level 6.8 *H Chloride Level 99 Carbon Dioxide Level 27 Anion Gap 10 Blood Urea Nitrogen 41 H Creatinine 6.08 H Est Glomerular 9 L Filtrat Rate mL/min Glucose Level 101 Calcium Level 9.0 Troponin I 0.036 Bedside Glucose 83 35 *L Prothrombin Time 13.0 Prothrombin Time 1.0 Ratio INR International 0.97 Normalized Ratio Activated 31.1 Partial Thromboplast Time Test 04/10/19 01:37 04/10/19 02:33 04/10/19 03:00 04/10/19 03:23 Bedside Glucose 49 *L 69 L 162 149 Test 04/10/19 03:51 04/10/19 03:52 Sodium Level 137 Potassium Level 7.0 *H Chloride Level 103 Carbon Dioxide Level 25 Anion Gap 9 Blood Urea Nitrogen 44 H Creatinine 6.58 H Est Glomerular 8 L Filtrat Rate mL/min Glucose Level 153 Calcium Level 9.1 Phosphorus Level 4.1 Magnesium Level 2.1 Total Bilirubin 0.3 Direct Bilirubin 0.00 Indirect Bilirubin 0.3 Aspartate Amino 28 Transf (AST/SGOT) Alanine 19 Aminotransferase (AL T/SGPT) Alkaline Phosphatase 97 Total Protein 6.4 Albumin 3.7 Globulin 2.70 Albumin/Globulin 1.37 Ratio White Blood Count 7.8 Red Blood Count 4.09 L Hemoglobin 12.8 L Hematocrit 40.5 L Mean Corpuscular 99.0 Volume Mean Corpuscular 31.3 Hemoglobin Mean Corpuscular 31.6 L Hemoglobin Concent Red Cell 13.7 Distribution Width Platelet Count 84 #L Mean Platelet Volume 10.9 H Immature 0.500 H Granulocytes % Neutrophils % 86.1 H Lymphocytes % 2.8 L Monocytes % 10.3 Eosinophils % 0.0 Basophils % 0.3 Nucleated Red Blood 0.0 Cells % Immature 0.040 H Granulocytes # Neutrophils # 6.7 Lymphocytes # 0.2 L Monocytes # 0.8 Eosinophils # 0.0 Basophils # 0.0 Nucleated Red Blood 0.0 Cells # Medications Medication Current Medications Ondansetron HCl (Zofran Inj) 4 mg ER BRIDGE PRN IV NAUSEA/VOMITING Last administ ered on 04/10/19at 02:03; Admin Dose 4 MG; Start 04/10/19 at 00:00; Stop 04/10/19 at 23:59 Acetaminophen (Tylenol Tab) 650 mg ER BRIDGE PRN PO .MILD PAIN 1-3 OR TEMP; Start 04/10/19 at 00:00; Stop 04/10/19 at 23:59 Dextrose/Sodium Chloride 1,000 ml @ 100 mls/hr Q10H IV Last administered on 04/10/19at 00:01; Admin Dose 100 MLS/HR; Start 04/10/19 at 00:00 Ondansetron HCl (Zofran Inj) 4 mg Q6H PRN IV NAUSEA AND/OR VOMITING; Start 04/10/19 at 00:00 Albuterol/ Ipratropium (Duoneb) 3 ml Q2H RESP THERAPY PRN NEB SHORTNESS OF BREATH Last administered on 04/10/19at 04:34; Admin Dose 3 ML; Start 04/10/19 at 00:00 Acetaminophen (Tylenol Liquid) 650 mg Q6H PRN PO PAIN LEVEL 1-3 OR FEVER Last administered on 04/10/19at 03:57; Admin Dose 650 MG; Start 04/10/19 at 00:00 Famotidine (Pepcid) 20 mg DAILY PO ; Start 04/10/19 at 09:00 Heparin Sodium (Porcine) (Heparin (5000 Units/1ml)) 5,000 unit Q12 SC ; Start 04/10/19 at 09:00 Nitroglycerin/ Dextrose 250 ml @ 1.5 mls/hr PER PROTOCOL IV Last administered on 04/10/19at 02:44; Admin Dose 1.5 MLS/HR; Start 04/10/19 at 00:00 Miscellaneous Information 1 ea NOTE XX ; Start 04/10/19 at 00:45 Glucose (Glutose) 15 gm Q15M PRN PO DECREASED GLUCOSE; Start 04/10/19 at 00:45 Glucose (Glutose) 22.5 gm Q15M PRN PO DECREASED GLUCOSE; Start 04/10/19 at 00:45 Dextrose (D50w Syringe) 25 ml Q15M PRN IV DECREASED GLUCOSE Last administered on 04/10/19at 02:36; Admin Dose 25 ML; Start 04/10/19 at 00:45 Dextrose (D50w Syringe) 50 ml Q15M PRN IV DECREASED GLUCOSE Last administered on 04/10/19at 02:07; Admin Dose 50 ML; Start 04/10/19 at 00:45 Glucagon (Glucagen) 1 mg Q15M PRN IM DECREASED GLUCOSE; Start 04/10/19 at 00:45 Glucose (Glutose) 15 gm Q15M PRN BUCCAL DECREASED GLUCOSE; Start 04/10/19 at 00:45 Calcium Gluconate 2 gm/Dextrose 120 ml @ 60 mls/hr ONCE ONCE IVPB Last administered on 04/10/19at 04:58; Admin Dose 60 MLS/HR; Start 04/10/19 at 05:00; Stop 04/10/19 at 06:59 LILIAN HALL MD April 10, 2019 06:45
[2019-04-10] MEDS ORDERED: SODIUM CHLORIDE 0.9% 1L BAG IV PRN (07:00)
[2019-04-10] MEDS ORDERED: ALBUMIN HUMAN 25% 100 ML IV PRN (07:00)
[2019-04-10] MEDS: FAMOTIDINE 20 MG TAB PO SCH (08:35)
[2019-04-10] MEDS ORDERED: HEPARIN 5,000 UNIT/1 ML VIAL SC SCH (09:00)
[2019-04-10] MEDS ORDERED: LEVOFLOXACIN 750MG/D5W (PMX) 150 ML IVPB ONE (09:00)
--- NOTE | 2019-04-10 09:09 | PN ---
Date/Time of Note Date/Time of Note DATE: 04/10/19 TIME: 09:02 Assessment/Plan VTE Prophylaxis SCD applied (from Nsg): No SCD contraindicated: other Pharmacological prophylaxis: heparin Lines/Catheters IV Catheter Type (from Nrs): Saline Lock Assessment/Plan Hospital Course S: Patient presently undergoing dialysis, sugars have improved. Still on nitroglycerin drip. Systolic blood pressures have come down to the systolic 1 5160 range. Now on a diet tolerating well. O: Vs- see below PE: General: Disheveled, lying in bed, more awake and alert Head: Normocephalic, atraumatic. Eyes: Pupils equally reactive, EOM intact ENT: Moist mucous membranes Neck: Supple Respiratory: Decreased aeration in the left lung base Cardiovascular: RRR, no murmurs, rubs, or gallops Abdominal: Soft, non-tender, non-distended, no peritoneal signs MSK: No edema, left upper extremity fistula with good bruit and thrill Neurologic: moving all extremities, normal speech, no focal weakness Assessment/Plan: 68-year-old male who presents with: 1. Hypoglycemia: Patient with a history of insulin-dependent diabetes. A1c is pending. Sugar levels have improved after patient got D50 earlier this adm ission. -Monitor sugars for now, follow-up A1c -Continue ICU monitoring 2. Hypertensive emergency: Blood pressure somewhat improved since overnight. - for now continue nitro drip, wean off as tolerated 3. Large left pleural effusion -found on chest x-ray this admission. -Thoracentesis ordered -follow-up results of -Hopefully will also improve with dialysis -For possible upper respiratory infection, renally dosed Levaquin as well 4. ESRD on HD: Presently getting dialysis today -Monitor, follow-up recommendations from nephrology for dialysis 5. Hyperkalemia: Potassium 7.0 on admission. Patient received calcium gluconate and albuterol as well as Kayexalate. Unable to give insulin because of hypoglycemia. Now getting dialysis -Monitor BMP, follow-up recommendations from nephrology for dialysis Critical care time spent in patient care today equals 45 minutes. Result Diagram: 04/10/19 0352 04/10/19 0351 Results 24hrs Laboratory Tests Test 04/09/19 22:02 04/09/19 22:18 04/09/19 22:45 04/09/19 23:47 White Blood Count 7.8 # Red Blood Count 4.66 #L Hemoglobin 14.5 # Hematocrit 46.0 # Mean Corpuscular 98.7 Volume Mean Corpuscular 31.1 Hemoglobin Mean Corpuscular 31.5 L Hemoglobin Concent Red Cell 14.1 Distribution Width Platelet Count 110 L Mean Platelet Volume 12.6 H Immature 0.400 Granulocytes % Neutrophils % 87.0 H Lymphocytes % 4.6 L Monocytes % 7.5 Eosinophils % 0.1 Basophils % 0.4 Nucleated Red Blood 0.0 Cells % Immature 0.030 Granulocytes # Neutrophils # 6.8 Lymphocytes # 0.4 L Monocytes # 0.6 Eosinophils # 0.0 Basophils # 0.0 Nucleated Red Blood 0.0 Cells # Sodium Level 136 Potassium Level 6.8 *H Chloride Level 99 Carbon Dioxide Level 27 Anion Gap 10 Blood Urea Nitrogen 41 H Creatinine 6.08 H Est Glomerular 9 L Filtrat Rate mL/min Glucose Level 101 Calcium Level 9.0 Troponin I 0.036 Bedside Glucose 83 35 *L Prothrombin Time 13.0 Prothrombin Time 1.0 Ratio INR International 0.97 Normalized Ratio Activated 31.1 Partial Thromboplast Time Test 04/10/19 01:37 04/10/19 02:33 04/10/19 03:00 04/10/19 03:23 Bedside Glucose 49 *L 69 L 162 149 Test 04/10/19 03:51 04/10/19 03:52 Sodium Level 137 Potassium Level 7.0 *H Chloride Level 103 Carbon Dioxide Level 25 Anion Gap 9 Blood Urea Nitrogen 44 H Creatinine 6.58 H Est Glomerular 8 L Filtrat Rate mL/min Glucose Level 153 Calcium Level 9.1 Phosphorus Level 4.1 Magnesium Level 2.1 Total Bilirubin 0.3 Direct Bilirubin 0.00 Indirect Bilirubin 0.3 Aspartate Amino 28 Transf (AST/SGOT) Alanine 19 Aminotransferase (AL T/SGPT) Alkaline Phosphatase 97 Total Protein 6.4 Albumin 3.7 Globulin 2.70 Albumin/Globulin 1.37 Ratio White Blood Count 7.8 Red Blood Count 4.09 L Hemoglobin 12.8 L Hematocrit 40.5 L Mean Corpuscular 99.0 Volume Mean Corpuscular 31.3 Hemoglobin Mean Corpuscular 31.6 L Hemoglobin Concent Red Cell 13.7 Distribution Width Platelet Count 84 #L Mean Platelet Volume 10.9 H Immature 0.500 H Granulocytes % Neutrophils % 86.1 H Lymphocytes % 2.8 L Monocytes % 10.3 Eosinophils % 0.0 Basophils % 0.3 Nucleated Red Blood 0.0 Cells % Immature 0.040 H Granulocytes # Neutrophils # 6.7 Lymphocytes # 0.2 L Monocytes # 0.8 Eosinophils # 0.0 Basophils # 0.0 Nucleated Red Blood 0.0 Cells # Exam/Review of Systems Exam Vitals Vital Signs Date Temp Pulse Resp B/P (MAP) Pulse Ox O2 O2 Flow FiO2 Time Delivery Rate 04/10/19 69 14 138/49 97 05:45 (78) 04/10/19 Nasal 05:30 Cannula 04/10/19 4.0 04:35 04/10/19 99.2 04:30 Results Results 24hrs Laboratory Tests Test 04/09/19 22:02 04/09/19 22:18 04/09/19 22:45 04/09/19 23:47 White Blood Count 7.8 # Red Blood Count 4.66 #L Hemoglobin 14.5 # Hematocrit 46.0 # Mean Corpuscular 98.7 Volume Mean Corpuscular 31.1 Hemoglobin Mean Corpuscular 31.5 L Hemoglobin Concent Red Cell 14.1 Distribution Width Platelet Count 110 L Mean Platelet Volume 12.6 H Immature 0.400 Granulocytes % Neutrophils % 87.0 H Lymphocytes % 4.6 L Monocytes % 7.5 Eosinophils % 0.1 Basophils % 0.4 Nucleated Red Blood 0.0 Cells % Immature 0.030 Granulocytes # Neutrophils # 6.8 Lymphocytes # 0.4 L Monocytes # 0.6 Eosinophils # 0.0 Basophils # 0.0 Nucleated Red Blood 0.0 Cells # Sodium Level 136 Potassium Level 6.8 *H Chloride Level 99 Carbon Dioxide Level 27 Anion Gap 10 Blood Urea Nitrogen 41 H Creatinine 6.08 H Est Glomerular 9 L Filtrat Rate mL/min Glucose Level 101 Calcium Level 9.0 Troponin I 0.036 Bedside Glucose 83 35 *L Prothrombin Time 13.0 Prothrombin Time 1.0 Ratio INR International 0.97 Normalized Ratio Activated 31.1 Partial Thromboplast Time Test 04/10/19 01:37 04/10/19 02:33 04/10/19 03:00 04/10/19 03:23 Bedside Glucose 49 *L 69 L 162 149 Test 04/10/19 03:51 04/10/19 03:52 Sodium Level 137 Potassium Level 7.0 *H Chloride Level 103 Carbon Dioxide Level 25 Anion Gap 9 Blood Urea Nitrogen 44 H Creatinine 6.58 H Est Glomerular 8 L Filtrat Rate mL/min Glucose Level 153 Calcium Level 9.1 Phosphorus Level 4.1 Magnesium Level 2.1 Total Bilirubin 0.3 Direct Bilirubin 0.00 Indirect Bilirubin 0.3 Aspartate Amino 28 Transf (AST/SGOT) Alanine 19 Aminotransferase (AL T/SGPT) Alkaline Phosphatase 97 Total Protein 6.4 Albumin 3.7 Globulin 2.70 Albumin/Globulin 1.37 Ratio White Blood Count 7.8 Red Blood Count 4.09 L Hemoglobin 12.8 L Hematocrit 40.5 L Mean Corpuscular 99.0 Volume Mean Corpuscular 31.3 Hemoglobin Mean Corpuscular 31.6 L Hemoglobin Concent Red Cell 13.7 Distribution Width Platelet Count 84 #L Mean Platelet Volume 10.9 H Immature 0.500 H Granulocytes % Neutrophils % 86.1 H Lymphocytes % 2.8 L Monocytes % 10.3 Eosinophils % 0.0 Basophils % 0.3 Nucleated Red Blood 0.0 Cells % Immature 0.040 H Granulocytes # Neutrophils # 6.7 Lymphocytes # 0.2 L Monocytes # 0.8 Eosinophils # 0.0 Basophils # 0.0 Nucleated Red Blood 0.0 Cells # Medications Medication Current Medications Ondansetron HCl (Zofran Inj) 4 mg ER BRIDGE PRN IV NAUSEA/VOMITING Last administ ered on 04/10/19at 02:03; Admin Dose 4 MG; Start 04/10/19 at 00:00; Stop 04/10/19 at 23:59 Acetaminophen (Tylenol Tab) 650 mg ER BRIDGE PRN PO .MILD PAIN 1-3 OR TEMP; Start 04/10/19 at 00:00; Stop 04/10/19 at 23:59 Dextrose/Sodium Chloride 1,000 ml @ 100 mls/hr Q10H IV Last administered on 04/10/19at 00:01; Admin Dose 100 MLS/HR; Start 04/10/19 at 00:00 Ondansetron HCl (Zofran Inj) 4 mg Q6H PRN IV NAUSEA AND/OR VOMITING; Start 04/10/19 at 00:00 Albuterol/ Ipratropium (Duoneb) 3 ml Q2H RESP THERAPY PRN NEB SHORTNESS OF BREATH Last administered on 04/10/19at 04:34; Admin Dose 3 ML; Start 04/10/19 at 00:00 Acetaminophen (Tylenol Liquid) 650 mg Q6H PRN PO PAIN LEVEL 1-3 OR FEVER Last administered on 04/10/19at 08:35; Admin Dose 650 MG; Start 04/10/19 at 00:00 Famotidine (Pepcid) 20 mg DAILY PO Last administered on 04/10/19at 08:35; Admin Dose 20 MG; Start 04/10/19 at 09:00 Heparin Sodium (Porcine) (Heparin (5000 Units/1ml)) 5,000 unit Q12 SC Last administered on 04/10/19at 08:37; Admin Dose 5,000 UNIT; Start 04/10/19 at 09:00 Nitroglycerin/ Dextrose 250 ml @ 1.5 mls/hr PER PROTOCOL IV Last administered on 04/10/19at 02:44; Admin Dose 1.5 MLS/HR; Start 04/10/19 at 00:00 Miscellaneous Information 1 ea NOTE XX ; Start 04/10/19 at 00:45 Glucose (Glutose) 15 gm Q15M PRN PO DECREASED GLUCOSE; Start 04/10/19 at 00:45 Glucose (Glutose) 22.5 gm Q15M PRN PO DECREASED GLUCOSE; Start 04/10/19 at 00:45 Dextrose (D50w Syringe) 25 ml Q15M PRN IV DECREASED GLUCOSE Last administered on 04/10/19at 02:36; Admin Dose 25 ML; Start 04/10/19 at 00:45 Dextrose (D50w Syringe) 50 ml Q15M PRN IV DECREASED GLUCOSE Last administered on 04/10/19at 02:07; Admin Dose 50 ML; Start 04/10/19 at 00:45 Glucagon (Glucagen) 1 mg Q15M PRN IM DECREASED GLUCOSE; Start 04/10/19 at 00:45 Glucose (Glutose) 15 gm Q15M PRN BUCCAL DECREASED GLUCOSE; Start 04/10/19 at 00:45 Albumin Human 100 ml @ 100 mls/hr WITH DIALYSIS PRN IV SBP <90 DURING DIALYSIS; Start 04/10/19 at 07:00 Sodium Chloride (NS) -To prime the dialy... DIRECTED FOR HD PRN IV HD; Start 04/10/19 at 07:00 Levofloxacin/ Dextrose 150 ml @ 100 mls/hr ONCE ONCE IVPB ; Start 04/10/19 at 09:00; Stop 04/10/19 at 10:29 Levofloxacin/ Dextrose 100 ml @ 100 mls/hr Q48H IVPB ; Start 04/12/19 at 09:00 ROXANN ESPINOSA April 10, 2019 09:09
[2019-04-10] MEDS: HYDROCODONE/APAP (5/325) TAB PO PRN ×2 (12:51→20:23)
[2019-04-10] MEDS: INSULIN ASPART [NOVOLOG] 3 ML PEN SC SCH ×3 (17:35→20:27)
[2019-04-10] MEDS ORDERED: AMLODIPINE 5 MG TAB PO SCH (18:00)
[2019-04-10] MEDS: AMLODIPINE 10 MG TAB PO SCH (18:04)
[2019-04-10] MEDS ORDERED: hydrALAzine 20 MG INJ IV ONE ×2 (21:30)
[2019-04-11] VITALS (91 sets, daily range): BP systolic 86–188; BP diastolic 42–146; PULSE 67–85; RESP 9–22
[2019-04-11] MEDS: NITROGLYCERIN 50 MG/D5W (PMX) 250 ML IV SCH ×5 (00:06→21:43)
[2019-04-11] MEDS: HYDROCODONE/APAP (5/325) TAB PO PRN ×4 (01:57→22:37)
[2019-04-11] MEDS ORDERED: ACCUCHECK AT 2AM (Patients on SS coverage) XX SCH (02:00)
[2019-04-11] MEDS: ONDANSETRON 4 MG INJ IV PRN (06:00)
--- NOTE | 2019-04-11 08:00 | CONS ---
Assessment/Plan Assessment/Plan Assessment/Plan (Daily) 1. acute hyperkalemia with K 7.0 on admission - resolved after stat HD 2. Hypertensive emergency 3. ESRD on HD TTS schedule 4. large fluid pleural effusion possibly due to acute fluid overload with Undelrying infiltrates - s/p Left thoracentesis 04/11/19- 1.5 L removed 5. H/o HTN 6. H/o HL 7. H/o DM Plan: s/p Left thoracentesis 04/11/19- 1.5 L removed, , BP stable IV abx Levaquin for possibly PNA< Renally dosed to Q 48 hr s/p HD yesterday - 3 L removed, K improved to normal, BP stable HD ordered for today then pt will be on TTS schdule( his original schedule) will follow up Consultation Date/Type/Reason Admit Date/Time April 09, 2019 at 23:46 Initial Consult Date 04/10/19 Type of Consult NEPHROLOGY Requesting Provider: ISSAC CRUZ MD Date/Time of Note DATE: 04/11/19 TIME: 07:59 Exam/Review of Systems Exam Vitals Vital Signs Date Temp Pulse Resp B/P (MAP) Pulse Ox O2 O2 Flow FiO2 Time Delivery Rate 04/11/19 79 12 144/58 91 Room Air 07:00 (86) 04/11/19 98.5 04:00 04/11/19 2.0 27 01:48 Intake and Output 04/10/19 04/10/19 04/11/19 1515:00 23:00 07:00 IntakeIntake Total 1338.250 ml 1131.250 ml 394 ml OutputOutput Total 3400 ml BalanceBalance -2061.750 ml 1131.250 ml 394 ml Exam Constitutional: alert, awake, moderate distress Respiratory: congested cough, crackles/rales, diminished breath sounds Cardiovascular: regular rate and rhythm, nl pulses Gastrointestinal: soft, non-tender Musculoskeletal: muscle weakness, swelling Extremities: normal pulses Neurological: [employer]OMOT[employer] C[employer] II-XII intact, nl mental status, nl speech, nl strength Results Result Diagram: 04/11/19 0457 04/11/19 0457 Results 24hrs Laboratory Tests Test 04/10/19 09:39 04/10/19 10:03 04/10/19 17:19 04/10/19 18:15 Hemoglobin A1c 8.0 H Bedside Glucose 173 293 H 320 H Test 04/10/19 20:25 04/11/19 01:51 04/11/19 04:57 Bedside Glucose 243 H 181 White Blood Count 6.4 Red Blood Count 3.97 L Hemoglobin 12.2 L Hematocrit 39.0 L Mean Corpuscular 98.2 Volume Mean Corpuscular 30.7 Hemoglobin Mean Corpuscular 31.3 L Hemoglobin Concent Red Cell 13.9 Distribution Width Platelet Count 92 L Mean Platelet Volume 12.0 H Immature 0.200 Granulocytes % Neutrophils % 76.9 Lymphocytes % 6.4 L Monocytes % 15.5 H Eosinophils % 0.5 Basophils % 0.5 Nucleated Red Blood 0.0 Cells % Immature 0.010 Granulocytes # Neutrophils # 4.9 Lymphocytes # 0.4 L Monocytes # 1.0 H Eosinophils # 0.0 Basophils # 0.0 Nucleated Red Blood 0.0 Cells # Sodium Level 131 L Potassium Level 5.3 H Chloride Level 93 #L Carbon Dioxide Level 27 Anion Gap 11 Blood Urea Nitrogen 29 #H Creatinine 4.48 #H Est Glomerular 13 L Filtrat Rate mL/min Glucose Level 233 H Calcium Level 8.4 Phosphorus Level 4.3 Magnesium Level 1.9 Medications Medication Current Medications Ondansetron HCl (Zofran Inj) 4 mg Q6H PRN IV NAUSEA AND/OR VOMITING Last administered on 04/11/19 06:00; Admin Dose 4 MG; Start 04/10/19 at 00:00 Albuterol/ Ipratropium (Duoneb) 3 ml Q2H RESP THERAPY PRN NEB SHORTNESS OF BREATH Last administered on 04/10/19 04:34; Admin Dose 3 ML; Start 04/10/19 at 00:00 Acetaminophen (Tylenol Liquid) 650 mg Q6H PRN PO PAIN LEVEL 1-3 OR FEVER Last administered on 04/10/19 21:33; Admin Dose 650 MG; Start 04/10/19 at 00:00 Famotidine (Pepcid) 20 mg DAILY PO Last administered on 04/10/19 08:35; Admin Dose 20 MG; Start 04/10/19 at 09:00 Heparin Sodium (Porcine) (Heparin (5000 Units/1ml)) 5,000 unit Q12 SC Last administered on 04/10/19 08:37; Admin Dose 5,000 UNIT; Start 04/10/19 at 09:00; Status Hold Nitroglycerin/ Dextrose 250 ml @ 1.5 mls/hr PER PROTOCOL IV Last administered on 04/11/19at 06:14; Admin Dose 45 MLS/HR; Start 04/10/19 at 00:00 Miscellaneous Information 1 ea NOTE XX ; Start 04/10/19 at 00:45 Glucose (Glutose) 15 gm Q15M PRN PO DECREASED GLUCOSE; Start 04/10/19 at 00:45 Glucose (Glutose) 22.5 gm Q15M PRN PO DECREASED GLUCOSE; Start 04/10/19 at 00:45 Dextrose (D50w Syringe) 25 ml Q15M PRN IV DECREASED GLUCOSE Last administered o n 04/10/19at 02:36; Admin Dose 25 ML; Start 04/10/19 at 00:45 Dextrose (D50w Syringe) 50 ml Q15M PRN IV DECREASED GLUCOSE Last administered on 04/10/19at 02:07; Admin Dose 50 ML; Start 04/10/19 at 00:45 Glucagon (Glucagen) 1 mg Q15M PRN IM DECREASED GLUCOSE; Start 04/10/19 at 00:45 Glucose (Glutose) 15 gm Q15M PRN BUCCAL DECREASED GLUCOSE; Start 04/10/19 at 00:45 Albumin Human 100 ml @ 100 mls/hr WITH DIALYSIS PRN IV SBP <90 DURING DIALYSIS; Start 04/10/19 at 07:00 Sodium Chloride (NS) -To prime the dialy... DIRECTED FOR HD PRN IV HD; Start 04/10/19 at 07:00 Levofloxacin/ Dextrose 100 ml @ 100 mls/hr Q48H IVPB ; Start 04/12/19 at 09:00 Acetaminophen/ Hydrocodone Bitart ([place] (5/325)) 1 tab Q6H PRN PO MODERATE PAIN LEVEL 4-6 Last administered on 04/10/19at 20:23; Admin Dose 1 TAB; Start 04/10/19 at 09:30 Labetalol HCl (Labetalol) 20 mg Q4H PRN IV SBP GREATER THAN 170; Start 04/10/19 at 18:00 Amlodipine Besylate (Norvasc) 5 mg DAILY PO Last administered on 04/10/19at 18:04; Admin Dose 5 MG; Start 04/10/19 at 18:00 Diagnostic Test (Pha) (Accu-Chek) 1 ea 02 XX Last administered on 04/11/19at 01:56; Admin Dose 1 EA; Start 04/11/19 at 02:00 Acetaminophen/ Hydrocodone Bitart ([place] (5/325)) 2 tab Q4H PRN PO MODERATE PAIN LEVEL 4-6 Last administered on 04/11/19at 01:57; Admin Dose 2 TAB; Start 04/10/19 at 21:30 Insulin Aspart (Novolog Insulin Pen) NOVOLOG *MODERATE* ALGORITHM WITH MEALS BEDTIME SC ; Start 04/11/19 at 07:35 LILIAN HALL MD April 11, 2019 07:59
[2019-04-11] MEDS: AMLODIPINE 10 MG TAB PO SCH (08:31)
[2019-04-11] MEDS: FAMOTIDINE 20 MG TAB PO SCH (08:31)
[2019-04-11] MEDS: INSULIN ASPART [NOVOLOG] 3 ML PEN SC SCH ×5 (08:34→20:33)
[2019-04-11] MEDS ORDERED: SODIUM POLYSTYRENE 15 GM KIT (POWDER + SORBITOL) PO SCH (09:30)
[2019-04-11] MEDS: LABETALOL HCL 20MG INJ IV PRN ×2 (10:04→21:48)
--- NOTE | 2019-04-11 12:05 | PN ---
Date/Time of Note Date/Time of Note DATE: 04/11/19 TIME: 11:50 Assessment/Plan VTE Prophylaxis Risk score (from Ns)>0 risk: 6 SCD applied (from Ns): No SCD contraindicated: other Pharmacological prophylaxis: heparin Lines/Catheters IV C[facility]ter Type (from [facility]): Peripheral IV Urinary Cath still in place: No Assessment/Plan Hospital Course S: Patient had dialysis yesterday, blood pressure overall improved but still high normal range today. Still on nitro drip since admission, but lower rate today. Had thoracentesis performed at the bedside today, approximately 1500 mL removed. O: Vs- see below PE: General: Disheveled, lying in bed Head: Normocephalic, atraumatic. Eyes: Pupils equally reactive, EOM intact ENT: Moist mucous membranes Neck: Supple Respiratory: Decreased aeration in the left lung base Cardiovascular: RRR, no murmurs, rubs, or gallops Abdominal: Soft, non-tender, non-distended, no peritoneal signs MSK: No edema, left upper extremity fistula with good bruit and thrill Neurologic: moving all extremities, normal speech, no focal weakness Assessment/Plan: 68-year-old male who presents with: 1. Hypoglycemia: Sugars improved now, actually in the mid 200 range in the last 24 hours. Patient with a history of insulin-dependent diabetes. A1c is 8.0. -Monitor sugars for now, given that his sugars are elevated now, start him on short acting insulin, Lantus, continue sliding scale 2. Hypertensive emergency: Blood pressure somewhat improved since overnight, we are weaning down the nitroglycerin drip. Also on p.o. blood pressure medications now. - for now continue nitro drip, wean off as tolerated -Continue current p.o. blood pressure medicines 3. Large left pleural effusion -found on chest x-ray this admission. Again status post thoracentesis earlier today, 1500 mL removed of fluid -follow-up results of fluid studies -Hopefully will also improve with dialysis -For possible upper respiratory infection, renally dosed Levaquin as well 4. ESRD on HD: Patient status post dialysis yesterday. Awaiting for another dialysis session today as well. -Monitor, follow-up recommendations from nephrology for dialysis 5. Hyperkalemia: Potassium 7.0 on admission. Patient received calcium glucon ate and albuterol as well as Kayexalate. Unable to give insulin because of hypoglycemia. Potassium today 5.3. -Monitor BMP, follow-up recommendations from nephrology for dialysis Critical care time spent in patient care today equals 45 minutes. Result Diagram: 04/11/19 0457 04/11/19 0457 Results 24hrs Laboratory Tests Test 04/10/19 17:19 04/10/19 18:15 04/10/19 20:25 04/11/19 01:51 Bedside Glucose 293 H 320 H 243 H 181 Test 04/11/19 04:57 04/11/19 08:28 White Blood Count 6.4 Red Blood Count 3.97 L Hemoglobin 12.2 L Hematocrit 39.0 L Mean Corpuscular 98.2 Volume Mean Corpuscular 30.7 Hemoglobin Mean Corpuscular 31.3 L Hemoglobin Concent Red Cell 13.9 Distribution Width Platelet Count 92 L Mean Platelet Volume 12.0 H Immature 0.200 Granulocytes % Neutrophils % 76.9 Lymphocytes % 6.4 L Monocytes % 15.5 H Eosinophils % 0.5 Basophils % 0.5 Nucleated Red Blood 0.0 Cells % Immature 0.010 Granulocytes # Neutrophils # 4.9 Lymphocytes # 0.4 L Monocytes # 1.0 H Eosinophils # 0.0 Basophils # 0.0 Nucleated Red Blood 0.0 Cells # Sodium Level 131 L Potassium Level 5.3 H Chloride Level 93 #L Carbon Dioxide Level 27 Anion Gap 11 Blood Urea Nitrogen 29 #H Creatinine 4.48 #H Est Glomerular 13 L Filtrat Rate mL/min Glucose Level 233 H Calcium Level 8.4 Phosphorus Level 4.3 Magnesium Level 1.9 Bedside Glucose 231 H Exam/Review of Systems Exam Vitals Vital Signs Date Temp Pulse Resp B/P (MAP) Pulse Ox O2 O2 Flow FiO2 Time Delivery Rate 04/11/19 79 08:00 04/11/19 12 144/58 91 Room Air 07:00 (86) 04/11/19 98.5 04:00 04/11/19 2.0 27 01:48 Intake and Output 04/10/19 04/10/19 04/11/19 1515:00 23:00 07:00 IntakeIntake Total 1338.250 ml 1131.250 ml 394 ml OutputOutput Total 3400 ml BalanceBalance -2061.750 ml 1131.250 ml 394 ml Results Results 24hrs Laboratory Tests Test 04/10/19 17:19 04/10/19 18:15 04/10/19 20:25 04/11/19 01:51 Bedside Glucose 293 H 320 H 243 H 181 Test 04/11/19 04:57 04/11/19 08:28 White Blood Count 6.4 Red Blood Count 3.97 L Hemoglobin 12.2 L Hematocrit 39.0 L Mean Corpuscular 98.2 Volume Mean Corpuscular 30.7 Hemoglobin Mean Corpuscular 31.3 L Hemoglobin Concent Red Cell 13.9 Distribution Width Platelet Count 92 L Mean Platelet Volume 12.0 H Immature 0.200 Granulocytes % Neutrophils % 76.9 Lymphocytes % 6.4 L Monocytes % 15.5 H Eosinophils % 0.5 Basophils % 0.5 Nucleated Red Blood 0.0 Cells % Immature 0.010 Granulocytes # Neutrophils # 4.9 Lymphocytes # 0.4 L Monocytes # 1.0 H Eosinophils # 0.0 Basophils # 0.0 Nucleated Red Blood 0.0 Cells # Sodium Level 131 L Potassium Level 5.3 H Chloride Level 93 #L Carbon Dioxide Level 27 Anion Gap 11 Blood Urea Nitrogen 29 #H Creatinine 4.48 #H Est Glomerular 13 L Filtrat Rate mL/min Glucose Level 233 H Calcium Level 8.4 Phosphorus Level 4.3 Magnesium Level 1.9 Bedside Glucose 231 H Medications Medication Current Medications Ondansetron HCl (Zofran Inj) 4 mg Q6H PRN IV NAUSEA AND/OR VOMITING Last administered on 04/11/19at 06:00; Admin Dose 4 MG; Start 04/10/19 at 00:00 Albuterol/ Ipratropium (Duoneb) 3 ml Q2H RESP THERAPY PRN NEB SHORTNESS OF BREATH Last administered on 04/10/19at 04:34; Admin Dose 3 ML; Start 04/10/19 at 00:00 Acetaminophen (Tylenol Liquid) 650 mg Q6H PRN PO PAIN LEVEL 1-3 OR FEVER Last administered on 04/10/19at 21:33; Admin Dose 650 MG; Start 04/10/19 at 00:00 Famotidine (Pepcid) 20 mg DAILY PO Last administered on 04/11/19at 08:31; Admin Dose 20 MG; Start 04/10/19 at 09:00 Heparin Sodium (Porcine) (Heparin (5000 Units/1ml)) 5,000 unit Q12 SC Last administered on 04/10/19at 08:37; Admin Dose 5,000 UNIT; Start 04/10/19 at 09:00; Status Hold Nitroglycerin/ Dextrose 250 ml @ 1.5 mls/hr PER PROTOCOL IV Last administered on 04/11/19at 11:36; Admin Dose 54 MLS/HR; Start 04/10/19 at 00:00 Miscellaneous Information 1 ea NOTE XX ; Start 04/10/19 at 00:45 Glucose (Glutose) 15 gm Q15M PRN PO DECREASED GLUCOSE; Start 04/10/19 at 00:45 Glucose (Glutose) 22.5 gm Q15M PRN PO DECREASED GLUCOSE; Start 04/10/19 at 00:45 Dextrose (D50w Syringe) 25 ml Q15M PRN IV DECREASED GLUCOSE Last administered on 04/10/19at 02:36; Admin Dose 25 ML; Start 04/10/19 at 00:45 Dextrose (D50w Syringe) 50 ml Q15M PRN IV DECREASED GLUCOSE Last administered on 04/10/19at 02:07; Admin Dose 50 ML; Start 04/10/19 at 00:45 Glucagon (Glucagen) 1 mg Q15M PRN IM DECREASED GLUCOSE; Start 04/10/19 at 00:45 Glucose (Glutose) 15 gm Q15M PRN BUCCAL DECREASED GLUCOSE; Start 04/10/19 at 00:45 Albumin Human 100 ml @ 100 mls/hr WITH DIALYSIS PRN IV SBP <90 DURING DIALYSIS; Start 04/10/19 at 07:00 Sodium Chloride (NS) -To prime the dialy... DIRECTED FOR HD PRN IV HD; Start 04/10/19 at 07:00 Levofloxacin/ Dextrose 100 ml @ 100 mls/hr Q48H IVPB ; Start 04/12/19 at 09:00 Acetaminophen/ Hydrocodone Bitart ([place] (5/325)) 1 tab Q6H PRN PO MODERATE PAIN LEVEL 4-6 Last administered on 04/10/19at 20:23; Admin Dose 1 TAB; Start 04/10/19 at 09:30 Labetalol HCl (Labetalol) 20 mg Q4H PRN IV SBP GREATER THAN 170 Last administered on 04/11/19at 10:04; Admin Dose 20 MG; Start 04/10/19 at 18:00 Amlodipine Besylate (Norvasc) 5 mg DAILY PO Last administered on 04/11/19 08:31; Admin Dose 5 MG; Start 04/10/19 at 18:00 Diagnostic Test (Pha) (Accu-Chek) 1 ea 02 XX Last administered on 04/11/19 01:56; Admin Dose 1 EA; Start 04/11/19 at 02:00 Acetaminophen/ Hydrocodone Bitart ([place] (5/325)) 2 tab Q4H PRN PO MODERATE PAIN LEVEL 4-6 Last administered on 04/11/19 09:40; Admin Dose 2 TAB; Start 04/10/19 at 21:30 Insulin Aspart (Novolog Insulin Pen) NOVOLOG *MODERATE* ALGORITHM WITH MEALS BEDTIME SC Last administered on 04/11/19 08:34; Admin Dose 6 UNIT; Start 04/11/19 at 07:35 ROXANN ESPINOSA April 11, 2019 12:00
[2019-04-11] MEDS ORDERED: LIDOCAINE 1% (MPF) 5 ML VIAL ONE (12:32)
[2019-04-11] MEDS ORDERED: PANTOPRAZOLE (EC) 40 MG TAB PO SCH (17:05)
[2019-04-11] MEDS: CALCIUM ACETATE 667 MG CAP PO SCH (17:30)
[2019-04-11] MEDS: INSULIN GLARGINE [LANTus] (100 UNITS/ML) SYG SC SCH (19:55)
[2019-04-11] MEDS: LACTOBACILLUS RHAMNOSUS CAP PO SCH (20:29)
[2019-04-11] MEDS: NIFEdipine (XL) 30 MG TAB PO SCH (20:29)
[2019-04-12] VITALS (47 sets, daily range): BP systolic 60–183; BP diastolic 42–138; PULSE 66–91; RESP 9–20
[2019-04-12] MEDS: DEXTROSE 50% 50 ML SYRINGE IV PRN ×2 (02:08→02:26)
[2019-04-12] MEDS: ACCU-CHEK XX SCH (02:11)
[2019-04-12] MEDS ORDERED: ALBUMIN HUMAN 25% 50 ML IV PRN (03:30)
[2019-04-12] MEDS ORDERED: ALBUMIN HUMAN 25% 100 ML IV PRN (04:00)
[2019-04-12] MEDS: INSULIN ASPART [NOVOLOG] 3 ML PEN SC SCH ×7 (08:11→21:00)
[2019-04-12] MEDS: LISINOPRIL 10 MG TAB PO SCH (08:13)
[2019-04-12] MEDS: LEVOFLOXACIN 500MG/D5W (PMX) 100 ML IVPB SCH (08:13)
[2019-04-12] MEDS: LACTOBACILLUS RHAMNOSUS CAP PO SCH ×2 (08:14→22:34)
[2019-04-12] MEDS: CALCIUM ACETATE 667 MG CAP PO SCH ×3 (08:14→17:32)
[2019-04-12] MEDS: NIFEdipine (XL) 30 MG TAB PO SCH ×2 (08:14→22:34)
[2019-04-12] MEDS: FAMOTIDINE 20 MG TAB PO SCH (08:14)
--- NOTE | 2019-04-12 10:02 | CONS ---
Assessment/Plan Assessment/Plan Assessment/Plan (Daily) 1. acute hyperkalemia with K 7.0 on admission - resolved after stat HD 2. Hypertensive emergency 3. ESRD on HD TTS schedule 4. large fluid pleural effusion possibly due to acute fluid overload with Undelrying infiltrates - s/p Left thoracentesis 04/11/19- 1.5 L removed 5. H/o HTN 6. H/o HL 7. H/o DM Plan: s/p Left thoracentesis 04/11/19- 1.5 L removed, , BP stable , s/p HD x 2 days in a row, Yesterday 2.1 L removed, - HD ordered for friday then pt will be on TTS schdule( his original schedule) IV abx Levaquin for possibly PNA< Renally dosed to Q 48 hr will follow up Consultation Date/Type/Reason Admit Date/Time April 09, 2019 at 23:46 Initial Consult Date 04/10/19 Type of Consult NEPHROLOGY Requesting Provider: ISSAC CRUZ MD Date/Time of Note DATE: 04/12/19 TIME: 10:02 24 HR Interval Summary Free Text/Dictation stable, plan for downgrade to telemetry floor, Bp stable Exam/Review of Systems Exam Vitals Vital Signs Date Temp Pulse Resp B/P (MAP) Pulse Ox O2 O2 Flow FiO2 Time Delivery Rate 04/12/19 89 08:00 04/12/19 11 97/67 (77) 100 07:15 04/12/19 Nasal 2.0 07:01 Cannula 04/12/19 98.5 04:01 04/12/19 27 03:00 Intake and Output 04/11/19 04/11/19 04/12/19 1515:00 23:00 07:00 IntakeIntake Total 915.50 ml 754 ml 477 ml OutputOutput Total 2800 ml BalanceBalance 915.50 ml 754 ml -2323 ml Exam Constitutional: alert, awake, moderate distress Respiratory: congested cough, crackles/rales, diminished breath sounds Cardiovascular: regular rate and rhythm, nl pulses Gastrointestinal: soft, non-tender Musculoskeletal: muscle weakness, swelling Extremities: normal pulses Neurological: 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, nl mental status, nl speech, nl strength Results Result Diagram: 04/12/19 0534 04/12/19 0534 Results 24hrs Laboratory Tests Test 04/11/19 12:00 04/11/19 12:29 04/11/19 17:32 04/11/19 19:53 Pathologist YES Review (Hematolog y) Body Fluid Type THORACENTESIS FL UID Body Fluid Volume 1050.0 Body Fluid Color YELLOW Body Fluid SLIGHTLY HAZY Appearance Body Fluid WBC 70 Body Fluid RBC 0 (Auto) Body Fluid 52.9 Polynuclear WBCs (%) Body Fluid 47.1 Mononuclear Cells % Auto Body Fluid 219 Glucose Body Fluid Total 3.4 Protein Body Fluid 252 Lactate Dehydroge nase Bedside Glucose 203 237 H 234 H Test 04/11/19 20:31 04/12/19 01:59 04/12/19 02:22 04/12/19 02:40 Bedside Glucose 228 H 52 L 65 L 105 Test 04/12/19 02:54 04/12/19 03:12 04/12/19 04:26 04/12/19 05:00 Bedside Glucose 83 120 138 Total Bilirubin 0.6 Direct Bilirubin 0.00 Indirect 0.6 Bilirubin Aspartate Amino 24 Transf (AST/SGOT) Alanine 20 Aminotransferase (ALT/SGPT) Alkaline 83 Phosphatase Lactate 520 Dehydrogenase Total Protein 6.0 L Albumin 3.5 Test 04/12/19 05:34 04/12/19 08:07 04/12/19 08:58 White Blood Count 7.4 Red Blood Count 3.89 L Hemoglobin 12.1 L Hematocrit 36.7 L Mean Corpuscular 94.3 Volume Mean Corpuscular 31.1 Hemoglobin Mean Corpuscular 33.0 Hemoglobin Concen t Red Cell 13.4 Distribution Width Platelet Count 90 L Mean Platelet 12.1 H Volume Immature 0.300 Granulocytes % Neutrophils % 75.6 Lymphocytes % 4.6 L Monocytes % 18.5 H Eosinophils % 0.7 Basophils % 0.3 Nucleated Red 0.0 Blood Cells % Immature 0.020 Granulocytes # Neutrophils # 5.6 Lymphocytes # 0.3 L Monocytes # 1.4 H Eosinophils # 0.1 Basophils # 0.0 Nucleated Red 0.0 Blood Cells # Sodium Level 134 L Potassium Level 4.4 Chloride Level 93 L Carbon Dioxide 30 Level Anion Gap 11 Blood Urea 20 Nitrogen Creatinine 3.30 #H Est Glomerular 19 L Filtrat Rate mL/min Glucose Level 119 # Calcium Level 8.3 L Bedside Glucose 187 133 Medications Medication Current Medications Ondansetron HCl (Zofran Inj) 4 mg Q6H PRN IV NAUSEA AND/OR VOMITING Last administered on 04/11/19 06:00; Admin Dose 4 MG; Start 04/10/19 at 00:00 Albuterol/ Ipratropium (Duoneb) 3 ml Q2H RESP THERAPY PRN NEB SHORTNESS OF BREATH Last administered on 04/10/19 04:34; Admin Dose 3 ML; Start 04/10/19 at 00:00 Acetaminophen (Tylenol Liquid) 650 mg Q6H PRN PO PAIN LEVEL 1-3 OR FEVER Last administered on 04/10/19 21:33; Admin Dose 650 MG; Start 04/10/19 at 00:00 Famotidine (Pepcid) 20 mg DAILY PO Last administered on 04/12/19 08:14; Admin Dose 20 MG; Start 04/10/19 at 09:00 Heparin Sodium (Porcine) (Heparin (5000 Units/1ml)) 5,000 unit Q12 SC Last administered on 04/10/19 08:37; Admin Dose 5,000 UNIT; Start 04/10/19 at 09:00; Status Hold Nitroglycerin/ Dextrose 250 ml @ 1.5 mls/hr PER PROTOCOL IV Last administered on 04/11/19 21:43; Admin Dose 57 MLS/HR; Start 04/10/19 at 00:00 Miscellaneous Information 1 ea NOTE XX ; Start 04/10/19 at 00:45 Glucose (Glutose) 15 gm Q15M PRN PO DECREASED GLUCOSE; Start 04/10/19 at 00:45 Glucose (Glutose) 22.5 gm Q15M PRN PO DECREASED GLUCOSE; Start 04/10/19 at 00:45 Dextrose (D50w Syringe) 25 ml Q15M PRN IV DECREASED GLUCOSE Last administered on 04/12/19at 02:26; Admin Dose 25 ML; Start 04/10/19 at 00:45 Dextrose (D50w Syringe) 50 ml Q15M PRN IV DECREASED GLUCOSE Last administered on 04/10/19at 02:07; Admin Dose 50 ML; Start 04/10/19 at 00:45 Glucagon (Glucagen) 1 mg Q15M PRN IM DECREASED GLUCOSE; Start 04/10/19 at 00:45 Glucose (Glutose) 15 gm Q15M PRN BUCCAL DECREASED GLUCOSE; Start 04/10/19 at 00:45 Sodium Chloride (NS) -To prime the dialy... DIRECTED FOR HD PRN IV HD; Start 04/10/19 at 07:00 Levofloxacin/ Dextrose 100 ml @ 100 mls/hr Q48H IVPB Last administered on 04/12/19 08:13; Admin Dose 100 MLS/HR; Start 04/12/19 at 09:00 Acetaminophen/ Hydrocodone Bitart ([place] (5/325)) 1 tab Q6H PRN PO MODERATE PAIN LEVEL 4-6 Last administered on 04/10/19 20:23; Admin Dose 1 TAB; Start 04/10/19 at 09:30 Labetalol HCl (Labetalol) 20 mg Q4H PRN IV SBP GREATER THAN 170 Last admin istered on 04/11/19 21:48; Admin Dose 20 MG; Start 04/10/19 at 18:00 Acetaminophen/ Hydrocodone Bitart ([place] (5/325)) 2 tab Q4H PRN PO MODERATE PAIN LEVEL 4-6 Last administered on 04/11/19 22:37; Admin Dose 2 TAB; Start 04/10/19 at 21:30 Insulin Aspart (Novolog Insulin Pen) NOVOLOG *MODERATE* ALGORITHM WITH MEALS BEDTIME SC Last administered on 04/12/19 08:11; Admin Dose 4 UNIT; Start 04/11 at 07:35 Diagnostic Test (Pha) (Accu-Chek) 1 ea 02 XX Last administered on 04/12/19 02:11; Admin Dose 1 EA; Start 04/12/19 at 02:00 Insulin Glargine (Lantus) 12 units DAILY@2000 SC Last administered on 04/11/19 19:55; Admin Dose 12 UNITS; Start 04/11/19 at 20:00 Insulin Aspart (Novolog Insulin Pen) 4 unit WITH MEALS SC Last administered on 04/12/19 08:12; Admin Dose 4 UNIT; Start 04/11/19 at 17:35 Calcium Acetate (Phoslo) 1,334 mg WITH MEALS PO Last administered on 04/12/19 08:14; Admin Dose 1,334 MG; Start 04/11/19 at 17:35 Lactobacillus Acidophilus/ Rhamnosus (Culturelle) 1 cap BID PO Last administered on 04/12/19 08:14; Admin Dose 1 CAP; Start 04/11/19 at 21:00 Lisinopril (Zestril) 10 mg DAILY PO Last administered on 04/12/19 08:13; Admin Dose 10 MG; Start 04/12/19 at 09:00 Nifedipine (Procardia Xl) 30 mg BID PO Last administered on 04/12/19 08:14; Admin Dose 30 MG; Start 04/11/19 at 21:00 Albumin Human 100 ml @ 100 mls/hr WITH DIALYSIS PRN IV SBP <90 DURING DIALYSIS Last administered on 04/12/19 03:52; Admin Dose 100 MLS/HR; Start 04/12/19 at 04:00 LILIAN HALL MD April 12, 2019 10:02
[2019-04-12] MEDS: ONDANSETRON 4 MG INJ IV PRN (12:12)
--- NOTE | 2019-04-12 15:41 | STROKE ---
Date/Time of Note Date/Time of Note DATE: 04/12/19 TIME: 10:17 Patient Information General Patient location: inpatient Arrival Date Age 68 Gender male Weight 60.8 kg POC Glucose Glucose Result Bedside Glucose - 72 Hours Test 04/09/19 22:18 04/09/19 23:47 04/10/19 01:37 04/10/19 02:33 Bedside 83 35 49 69 Glucose mg/dL (70-220) mg/dL (70-220) mg/dL (70-220) mg/dL (70-220) *L *L L Test 04/10/19 03:00 04/10/19 03:23 04/10/19 10:03 04/10/19 17:19 Bedside 162 149 173 293 Glucose mg/dL (70-220) mg/dL (70-220) mg/dL (70-220) mg/dL (70-220) H Test 04/10/19 18:15 04/10/19 20:25 04/11/19 01:51 04/11/19 08:28 Bedside 320 243 181 231 Glucose mg/dL (70-220) mg/dL (70-220) mg/dL (70-220) mg/dL (70-220) H H H Test 04/11/19 12:29 04/11/19 17:32 04/11/19 19:53 04/11/19 20:31 Bedside 203 237 234 228 Glucose mg/dL (70-220) mg/dL (70-220) mg/dL (70-220) mg/dL (70-220) H H H Test 04/12/19 01:59 04/12/19 02:22 04/12/19 02:40 04/12/19 02:54 Bedside 52 65 105 83 Glucose mg/dL (70-220) mg/dL (70-220) mg/dL (70-220) mg/dL (70-220) L L Test 04/12/19 03:12 04/12/19 04:26 04/12/19 08:07 04/12/19 08:58 Bedside 120 138 187 133 Glucose mg/dL (70-220) mg/dL (70-220) mg/dL (70-220) mg/dL (70-220) Vital Signs Vital Signs Vital Signs Date Temp Pulse Resp B/P (MAP) Pulse Ox O2 O2 Flow FiO2 Time Delivery Rate 04/12/19 89 08:00 04/12/19 11 97/67 (77) 100 07:15 04/12/19 Nasal 2.0 07:01 Cannula 04/12/19 98.5 04:01 04/12/19 27 03:00 Patient History Current Medications Allergies: Coded Allergies: No Known Allergy (Unverified , 08/17/17) History & Physical Patient History Notes Pt Hx Reviewed History of Present Illness 68 yo M with h/o ESRD, DM, with possible stroke in the past, came hypoglycemia but hospitalized plueral effusion, now altered mental status. Yesterday patient had normal speech, normal pupils, without neurologic deficits. This morning found to have fixed dilated pupil on left, fixed but not dilated on the right, with flattening of right nasolabial fold, and oriented only to name. Last normal last night unknown time. Review of Systems Constitutional: no symptoms reported EENTM: no symptoms reported Respiratory: no symptoms reported Cardiovascular: no symptoms reported Gastrointestinal: no symptoms reported Genitourinary: no symptoms reported Musculoskeletal: no symptoms reported Skin: no symptoms reported Psychiatric/Neurological: no symptoms reported All Other Systems: Reviewed and Negative NIH Stroke Scale NIH Stroke Scale [id number] 4d LOC Questions: Vhfvk7h LOC Commands: Xgnmx2u t Gaze: Lzusr0c Cnlxd9x alsy: Ycxkv5h rm - Left: Pexbg1o ight: Craif0m eft: Euwzf2v ight: Urpdp9d Ksirx4a Huwwf0o Lvjpq7d abbie: Fijnx0q Mcbqu8u 4Bd Total Score: Sojui4p left) Date/Time Recorded DATE: 04/12/19 TIME: 10:17 Submitted By Ced Hudson t-PA Imaging Review Imaging Reviewed: Yes Date/Time Imaging Reviewed DATE: 04/12/19 TIME: 10:17 Imaging Findings No acute changes t-PA Administration Recommendation: No Weight 60.8 kg Recommedation submitted by Ced Hudson Reason t-PA not Recommended symptoms resolved t-PA Not Recommended Date/Time 04/12/19 9:30 Recommendations Impression Diagnosis metabolic encephalopathy Recommendation 68yo M presents with acute onset altered mental status, now improved. Neurological exam is notable for patient being somnolent but otherwise unremarkable. I believe the patient has a metabolic encephalopathy but differential diagnosis also includes transient ischemic attack. I recommend further workup include MRI Brain without gadolinium, MRA of the head without gadolinium, MRA of the neck with gadolinium, transthoracic echocardiogram, and metabolic/infectious workup. [id number] Diagnostic Labs: Vxeni8a Lipid Proile Hgb A1C CMP CBC w/Diff Coags Udinp4Xu Therapy: [address] Physical Therapy Speech Therapy Occupational Therapy [id number] [place]ations: [address] Bedside Swallow Evaluation Pnumatic Compression Devices Stroke Education Smoking Education CED HUDSON April 12, 2019 10:27
--- NOTE | 2019-04-12 18:26 | PN ---
Date/Time of Note Date/Time of Note DATE: 04/12/19 TIME: 18:19 Assessment/Plan VTE Prophylaxis Risk score (from Nsg)>0 risk: 6 SCD applied (from Nsg): No SCD contraindicated: low risk/ambulating Pharmacological prophylaxis: NA/contraindicated Pharm contraindication: low risk/ambulating Lines/Catheters IV Catheter Type (from Nrs): Peripheral IV Urinary Cath still in place: No Assessment/Plan Assessment/Plan 68 yo man with ESRD presents with hypoglycemia and hypertension. 1. Hypoglycemia: Sugars improved now, actually in the mid 200 range in the last 24 hours. Patient with a history of insulin-dependent diabetes. A1c is 8.0. -Monitor sugars for now, given that his sugars are elevated now, start him on short acting insulin, Lantus, continue sliding scale 2. Hypertension: - Admitted to ICU on nitro gtt, now weaned off. - Continue current BP meds. 3. Large left pleural effusion -found on chest x-ray this admission. Again status post thoracentesis earlier today, 1500 mL removed of fluid -follow-up results of fluid studies -Hopefully will also improve with dialysis -For possible upper respiratory infection, renally dosed Levaquin as well 4. ESRD on HD: -Monitor, follow-up recommendations from nephrology for dialysis Critical care time spent in patient care today equals 45 minutes. Result Diagram: 04/12/19 0534 04/12/19 0534 Subjective 24 Hr Interval Summary Free Text/Dictation This morning, first time seeing the patient I noticed he had fixed dilated L pu pil and was disoriented to year, month, and location. Oriented only to own name. On review of yesterday's documentation, it says PERRL and A&Ox4. I called code stroke. CT and MRI negative. Patient then said he's had surgery on the R eye in the past. Otherwise; titrated off nitro gtt. In the afternoon mental status had returned to baseline. Exam/Review of Systems Exam Vitals Vital Signs Date Temp Pulse Resp B/P (MAP) Pulse Ox O2 O2 Flow FiO2 Time Delivery Rate 04/12/19 85 10 148/82 98 Nasal 2.0 17:00 (104) Cannula 04/12/19 99.5 16:00 04/12/19 27 03:00 Intake and Output 04/11/19 04/11/19 04/12/19 1515:00 23:00 07:00 IntakeIntake Total 915.50 ml 754 ml 477 ml OutputOutput Total 2800 ml BalanceBalance 915.50 ml 754 ml -2323 ml Exam General: Disheveled appearing man lying in bed. Head: Normocephalic, atraumatic. Eyes: L pupil fixed and dilated. R pupil normal but also nonresponsive. ENT: Moist mucous membranes Neck: Supple Respiratory: Decreased aeration in the left lung base Cardiovascular: RRR, no murmurs, rubs, or gallops Abdominal: Soft, non-tender, non-distended, no peritoneal signs MSK: No edema, left upper extremity fistula with good bruit and thrill Results Results 24hrs Laboratory Tests Test 04/11/19 19:53 04/11/19 20:31 04/12/19 01:59 04/12/19 02:22 Bedside Glucose 234 H 228 H 52 L 65 L Test 04/12/19 02:40 04/12/19 02:54 04/12/19 03:12 04/12/19 04:26 Bedside Glucose 105 83 120 138 Test 04/12/19 05:00 04/12/19 05:34 04/12/19 08:07 04/12/19 08:58 Total Bilirubin 0.6 Direct Bilirubin 0.00 Indirect Bilirubin 0.6 Aspartate Amino 24 Transf (AST/SGOT) Alanine 20 Aminotransferase (AL T/SGPT) Alkaline Phosphatase 83 Lactate 520 Dehydrogenase Total Protein 6.0 L Albumin 3.5 White Blood Count 7.4 Red Blood Count 3.89 L Hemoglobin 12.1 L Hematocrit 36.7 L Mean Corpuscular 94.3 Volume Mean Corpuscular 31.1 Hemoglobin Mean Corpuscular 33.0 Hemoglobin Concent Red Cell 13.4 Distribution Width Platelet Count 90 L Mean Platelet Volume 12.1 H Immature 0.300 Granulocytes % Neutrophils % 75.6 Lymphocytes % 4.6 L Monocytes % 18.5 H Eosinophils % 0.7 Basophils % 0.3 Nucleated Red Blood 0.0 Cells % Immature 0.020 Granulocytes # Neutrophils # 5.6 Lymphocytes # 0.3 L Monocytes # 1.4 H Eosinophils # 0.1 Basophils # 0.0 Nucleated Red Blood 0.0 Cells # Sodium Level 134 L Potassium Level 4.4 Chloride Level 93 L Carbon Dioxide Level 30 Anion Gap 11 Blood Urea Nitrogen 20 Creatinine 3.30 #H Est Glomerular 19 L Filtrat Rate mL/min Glucose Level 119 # Calcium Level 8.3 L Bedside Glucose 187 133 Test 04/12/19 12:22 04/12/19 17:31 Bedside Glucose 85 150 Medications Medication Current Medications Ondansetron HCl (Zofran Inj) 4 mg Q6H PRN IV NAUSEA AND/OR VOMITING Last administered on 04/12/19 12:12; Admin Dose 4 MG; Start 04/10/19 at 00:00 Albuterol/ Ipratropium (Duoneb) 3 ml Q2H RESP THERAPY PRN NEB SHORTNESS OF BREATH Last administered on 04/10/19 04:34; Admin Dose 3 ML; Start 04/10/19 at 00:00 Acetaminophen (Tylenol Liquid) 650 mg Q6H PRN PO PAIN LEVEL 1-3 OR FEVER Last administered on 04/10/19at 21:33; Admin Dose 650 MG; Start 04/10/19 at 00:00 Famotidine (Pepcid) 20 mg DAILY PO Last administered on 04/12/19at 08:14; Admin Dose 20 MG; Start 04/10/19 at 09:00 Heparin Sodium (Porcine) (Heparin (5000 Units/1ml)) 5,000 unit Q12 SC Last administered on 04/10/19at 08:37; Admin Dose 5,000 UNIT; Start 04/10/19 at 09:00; Status Hold Miscellaneous Information 1 ea NOTE XX ; Start 04/10/19 at 00:45 Glucose (Glutose) 15 gm Q15M PRN PO DECREASED GLUCOSE; Start 04/10/19 at 00:45 Glucose (Glutose) 22.5 gm Q15M PRN PO DECREASED GLUCOSE; Start 04/10/19 at 00:45 Dextrose (D50w Syringe) 25 ml Q15M PRN IV DECREASED GLUCOSE Last administered on 04/12/19at 02:26; Admin Dose 25 ML; Start 04/10/19 at 00:45 Dextrose (D50w Syringe) 50 ml Q15M PRN IV DECREASED GLUCOSE Last administered on 04/10/19at 02:07; Admin Dose 50 ML; Start 04/10/19 at 00:45 Glucagon (Glucagen) 1 mg Q15M PRN IM DECREASED GLUCOSE; Start 04/10/19 at 00:45 Glucose (Glutose) 15 gm Q15M PRN BUCCAL DECREASED GLUCOSE; Start 04/10/19 at 00:45 Sodium Chloride (NS) -To prime the dialy... DIRECTED FOR HD PRN IV HD; Start 04/10/19 at 07:00 Levofloxacin/ Dextrose 100 ml @ 100 mls/hr Q48H IVPB Last administered on 04/12/19 08:13; Admin Dose 100 MLS/HR; Start 04/12/19 at 09:00 Acetaminophen/ Hydrocodone Bitart ([place] (5/325)) 1 tab Q6H PRN PO MODERATE PAIN LEVEL 4-6 Last administered on 04/10/19 20:23; Admin Dose 1 TAB; Start 04/10/19 at 09:30 Labetalol HCl (Labetalol) 20 mg Q4H PRN IV SBP GREATER THAN 170 Last administered on 04/11/19 21:48; Admin Dose 20 MG; Start 04/10/19 at 18:00 Acetaminophen/ Hydrocodone Bitart ([place] (5/325)) 2 tab Q4H PRN PO MODERATE PAIN LEVEL 4-6 Last administered on 04/11/19 22:37; Admin Dose 2 TAB; Start 04/10/19 at 21:30 Insulin Aspart (Novolog Insulin Pen) NOVOLOG *MODERATE* ALGORITHM WITH MEALS BEDTIME SC Last administered on 04/12/19 17:34; Admin Dose 2 UNIT; Start 04/11/19 at 07:35 Diagnostic Test (Pha) (Accu-Chek) 1 ea 02 XX Last administered on 04/12/19 02:11; Admin Dose 1 EA; Start 04/12/19 at 02:00 Insulin Glargine (Lantus) 12 units DAILY@2000 SC Last administered on 04/11/19 19:55; Admin Dose 12 UNITS; Start 04/11/19 at 20:00 Insulin Aspart (Novolog Insulin Pen) 4 unit WITH MEALS SC Last administered on 04/12/19 17:36; Admin Dose 4 UNIT; Start 04/11/19 at 17:35 Calcium Acetate (Phoslo) 1,334 mg WITH MEALS PO Last administered on 04/12/19 17:32; Admin Dose 1,334 MG; Start 04/11/19 at 17:35 Lactobacillus Acidophilus/ Rhamnosus (Culturelle) 1 cap BID PO Last administered on 04/12/19 08:14; Admin Dose 1 CAP; Start 04/11/19 at 21:00 Lisinopril (Zestril) 10 mg DAILY PO Last administered on 04/12/19 08:13; Admin Dose 10 MG; Start 04/12/19 at 09:00 Nifedipine (Procardia Xl) 30 mg BID PO Last administered on 04/12/19 08:14; Admin Dose 30 MG; Start 04/11/19 at 21:00 Albumin Human 100 ml @ 100 mls/hr WITH DIALYSIS PRN IV SBP <90 DURING DIALYSIS Last administered on 04/12/19at 03:52; Admin Dose 100 MLS/HR; Start 04/12/19 at 04:00 PAUL GUILLORY MD April 12, 2019 18:26
[2019-04-12] MEDS: INSULIN GLARGINE [LANTus] (100 UNITS/ML) SYG SC SCH (22:58)
[2019-04-13] VITALS (30 sets, daily range): BP systolic 130–197; BP diastolic 59–100; PULSE 74–92; RESP 18–19
[2019-04-13] MEDS: ACCU-CHEK XX SCH (02:00)
[2019-04-13] MEDS: INSULIN ASPART [NOVOLOG] 3 ML PEN SC SCH ×7 (08:00→21:00)
[2019-04-13] MEDS: CALCIUM ACETATE 667 MG CAP PO SCH ×3 (09:48→17:08)
[2019-04-13] MEDS: HYDROCODONE/APAP (5/325) TAB PO PRN (09:54)
--- NOTE | 2019-04-13 12:31 | PN ---
Date/Time of Note Date/Time of Note DATE: 04/13/19 TIME: 12:23 Assessment/Plan VTE Prophylaxis Risk score (from Ns)>0 risk: 3 SCD applied (from Ns): Yes Pharmacological prophylaxis: NA/contraindicated Pharm contraindication: low risk/ambulating Lines/Catheters IV Catheter Type (from Nrsg): Peripheral IV Urinary Cath still in place: No Assessment/Plan Assessment/Plan 68 yo man with ESRD presents with hypoglycemia and hypertension. 1. Diabetes - Patient arrived slightly hypoglycemic - Will decrease dose of glargine. - Continue current sliding scale. 2. Hypertension: - Admitted to ICU on nitro gtt, now weaned off. - Continue current BP meds. 3. Large left pleural effusion -found on chest x-ray this admission. Again status post thoracentesis on 04/11, 1500 mL removed of fluid -Exudative by Light's criteria with pleural protein>0.5 serum protein, but only barely. -For possible upper respiratory infection, renally dosed Levaquin as well -Unfortunately sample not sent to micro lab. So gram stain will either not be done or may be contaminated. 4. ESRD on HD: -Monitor, follow-up recommendations from nephrology for dialysis Result Diagram: 04/13/19 0539 04/13/19 0539 Subjective 24 Hr Interval Summary Free Text/Dictation No acute overnight events. Patient got dialysis today. Complaining of back pain from the thoracentesis site. Exam/Review of Systems Exam Vitals Vital Signs Date Temp Pulse Resp B/P (MAP) Pulse Ox O2 O2 Flow FiO2 Time Delivery Rate 04/13/19 98.7 85 19 150/67 95 11:23 (94) 04/13/19 Nasal 2.0 08:15 Cannula 04/13/19 28 03:24 Intake and Output 04/12/19 04/12/19 04/13/19 1515:00 23:00 07:00 IntakeIntake Total 820 ml 240 ml 520 ml BalanceBalance 820 ml 240 ml 520 ml Exam General: Well developed man lying in bed, awake and alert. Head: Normocephalic, atraumatic. Eyes: L pupil fixed and dilated. R pupil normal but also nonresponsive. ENT: Moist mucous membranes Neck: Supple Respiratory: Decreased aeration in the left lung base Cardiovascular: RRR, no murmurs, rubs, or gallops Abdominal: Soft, non-tender, non-distended, no peritoneal signs MSK: No edema, left upper extremity fistula with good bruit and thrill. Distal R arm slightly swollen. Results Results 24hrs Laboratory Tests Test 04/12/19 17:31 04/12/19 20:52 04/13/19 05:33 04/13/19 05:39 Bedside Glucose 150 95 75 White Blood Count 6.8 Red Blood Count 4.53 L Hemoglobin 14.1 Hematocrit 43.2 Mean Corpuscular 95.4 Volume Mean Corpuscular 31.1 Hemoglobin Mean Corpuscular 32.6 Hemoglobin Concent Red Cell 13.2 Distribution Width Platelet Count 89 L Mean Platelet Volume 11.3 H Immature 0.600 H Granulocytes % Neutrophils % 76.4 Lymphocytes % 5.0 L Monocytes % 16.8 H Eosinophils % 0.9 Basophils % 0.3 Nucleated Red Blood 0.0 Cells % Immature 0.040 H Granulocytes # Neutrophils # 5.2 Lymphocytes # 0.3 L Monocytes # 1.2 H Eosinophils # 0.1 Basophils # 0.0 Nucleated Red Blood 0.0 Cells # Sodium Level 132 L Potassium Level 4.6 Chloride Level 91 L Carbon Dioxide Level 28 Anion Gap 13 Blood Urea Nitrogen 32 #H Creatinine 4.77 #H Est Glomerular 12 L Filtrat Rate mL/min Glucose Level 66 #L Calcium Level 8.7 Test 04/13/19 09:44 04/13/19 12:08 Bedside Glucose 84 87 Medications Medication Current Medications Ondansetron HCl (Zofran Inj) 4 mg Q6H PRN IV NAUSEA AND/OR VOMITING Last administered on 04/12/19at 12:12; Admin Dose 4 MG; Start 04/10/19 at 00:00 Albuterol/ Ipratropium (Duoneb) 3 ml Q2H RESP THERAPY PRN NEB SHORTNESS OF BREATH Last administered on 04/10/19at 04:34; Admin Dose 3 ML; Start 04/10/19 at 00:00 Acetaminophen (Tylenol Liquid) 650 mg Q6H PRN PO PAIN LEVEL 1-3 OR FEVER Last administered on 04/10/19at 21:33; Admin Dose 650 MG; Start 04/10/19 at 00:00 Famotidine (Pepcid) 20 mg DAILY PO Last administered on 04/12/19at 08:14; Admin Dose 20 MG; Start 04/10/19 at 09:00 Heparin Sodium (Porcine) (Heparin (5000 Units/1ml)) 5,000 unit Q12 SC Last administered on 04/10/19at 08:37; Admin Dose 5,000 UNIT; Start 04/10/19 at 09:00; Status Hold Miscellaneous Information 1 ea NOTE XX ; Start 04/10/19 at 00:45 Glucose (Glutose) 15 gm Q15M PRN PO DECREASED GLUCOSE; Start 04/10/19 at 00:45 Glucose (Glutose) 22.5 gm Q15M PRN PO DECREASED GLUCOSE; Start 04/10/19 at 00:45 Dextrose (D50w Syringe) 25 ml Q15M PRN IV DECREASED GLUCOSE Last administered on 04/12/19at 02:26; Admin Dose 25 ML; Start 04/10/19 at 00:45 Dextrose (D50w Syringe) 50 ml Q15M PRN IV DECREASED GLUCOSE Last administered on 04/10/19at 02:07; Admin Dose 50 ML; Start 04/10/19 at 00:45 Glucagon (Glucagen) 1 mg Q15M PRN IM DECREASED GLUCOSE; Start 04/10/19 at 00:45 Glucose (Glutose) 15 gm Q15M PRN BUCCAL DECREASED GLUCOSE; Start 04/10/19 at 00:45 Levofloxacin/ Dextrose 100 ml @ 100 mls/hr Q48H IVPB Last administered on 04/12/19at 08:13; Admin Dose 100 MLS/HR; Start 04/12/19 at 09:00 Acetaminophen/ Hydrocodone Bitart ([place] (5/325)) 1 tab Q6H PRN PO MODERATE PAIN LEVEL 4-6 Last administered on 04/13/19at 09:54; Admin Dose 1 TAB; Start 04/10/19 at 09:30 Labetalol HCl (Labetalol) 20 mg Q4H PRN IV SBP GREATER THAN 170 Last administered on 04/11/19at 21:48; Admin Dose 20 MG; Start 04/10/19 at 18:00 Acetaminophen/ Hydrocodone Bitart ([place] (5/325)) 2 tab Q4H PRN PO MODERATE PAIN LEVEL 4-6 Last administered on 04/11/19at 22:37; Admin Dose 2 TAB; Start 04/10/19 at 21:30 Insulin Aspart (Novolog Insulin Pen) NOVOLOG *MODERATE* ALGORITHM WITH MEALS BEDTIME SC Last administered on 04/12/19 17:34; Admin Dose 2 UNIT; Start 04/11/19 at 07:35 Diagnostic Test (Pha) (Accu-Chek) 1 ea 02 XX Last administered on 04/12/19 02:11; Admin Dose 1 EA; Start 04/12/19 at 02:00 Insulin Aspart (Novolog Insulin Pen) 4 unit WITH MEALS SC Last administered on 04/12/19 17:36; Admin Dose 4 UNIT; Start 04/11/19 at 17:35 Calcium Acetate (Phoslo) 1,334 mg WITH MEALS PO Last administered on 04/13/19 09:48; Admin Dose 1,334 MG; Start 04/11/19 at 17:35 Lactobacillus Acidophilus/ Rhamnosus (Culturelle) 1 cap BID PO Last administered on 04/12/19 22:34; Admin Dose 1 CAP; Start 04/11/19 at 21:00 Lisinopril (Zestril) 10 mg DAILY PO Last administered on 04/12/19 08:13; Admin Dose 10 MG; Start 04/12/19 at 09:00 Nifedipine (Procardia Xl) 30 mg BID PO Last administered on 04/12/19 22:34; Admin Dose 30 MG; Start 04/11/19 at 21:00 Albumin Human 100 ml @ 100 mls/hr WITH DIALYSIS PRN IV SBP <90 DURING DIALYSIS Last administered on 04/12/19 03:52; Admin Dose 100 MLS/HR; Start 04/12/19 at 04:00 Insulin Glargine (Lantus) 8 units DAILY@2000 SC ; Start 04/13/19 at 20:00 PAUL GUILLORY MD April 13, 2019 12:31
--- NOTE | 2019-04-13 14:07 | CONS ---
Assessment/Plan Assessment/Plan Assessment/Plan (Daily) 1. acute hyperkalemia with K 7.0 on admission - resolved after stat HD 2. Hypertensive emergency 3. ESRD on HD TTS schedule 4. large fluid pleural effusion possibly due to acute fluid overload with Undelrying infiltrates - s/p Left thoracentesis 04/11/19- 1.5 L removed 5. H/o HTN 6. H/o HL 7. H/o DM Plan: s/p Left thoracentesis 04/11/19- 1.5 L removed, , BP stable , s/p HD today 3 L removed, pt will be on TTS schdule( his original schedule)- next HD on Nifedipine Xl 60mg pO x 1 dose then continue Nifedipine Xl 60mg pO BID IV hydralazine prn will follow up Consultation Date/Type/Reason Admit Date/Time April 09, 2019 at 23:46 Initial Consult Date 04/10/19 Type of Consult NEPHROLOGY Requesting Provider: ISSAC CRUZ MD Date/Time of Note DATE: 04/13/19 TIME: 14:07 24 HR Interval Summary Free Text/Dictation s/p HD today 3 L removed, BP continues to run high, pt denies compalints Exam/Review of Systems Exam Vitals Vital Signs Date Temp Pulse Resp B/P (MAP) Pulse Ox O2 O2 Flow FiO2 Time Delivery Rate 04/13/19 92 12:42 04/13/19 98.7 19 150/67 95 11:23 (94) 04/13/19 Nasal 2.0 08:15 Cannula 04/13/19 28 03:24 Intake and Output 04/12/19 04/12/19 04/13/19 1515:00 23:00 07:00 IntakeIntake Total 820 ml 240 ml 520 ml BalanceBalance 820 ml 240 ml 520 ml Results Result Diagram: 04/13/19 0539 04/13/19 0539 Results 24hrs Laboratory Tests Test 04/12/19 17:31 04/12/19 20:52 04/13/19 05:33 04/13/19 05:39 Bedside Glucose 150 95 75 White Blood Count 6.8 Red Blood Count 4.53 L Hemoglobin 14.1 Hematocrit 43.2 Mean Corpuscular 95.4 Volume Mean Corpuscular 31.1 Hemoglobin Mean Corpuscular 32.6 Hemoglobin Concent Red Cell 13.2 Distribution Width Platelet Count 89 L Mean Platelet Volume 11.3 H Immature 0.600 H Granulocytes % Neutrophils % 76.4 Lymphocytes % 5.0 L Monocytes % 16.8 H Eosinophils % 0.9 Basophils % 0.3 Nucleated Red Blood 0.0 Cells % Immature 0.040 H Granulocytes # Neutrophils # 5.2 Lymphocytes # 0.3 L Monocytes # 1.2 H Eosinophils # 0.1 Basophils # 0.0 Nucleated Red Blood 0.0 Cells # Sodium Level 132 L Potassium Level 4.6 Chloride Level 91 L Carbon Dioxide Level 28 Anion Gap 13 Blood Urea Nitrogen 32 #H Creatinine 4.77 #H Est Glomerular 12 L Filtrat Rate mL/min Glucose Level 66 #L Calcium Level 8.7 Test 04/13/19 09:44 04/13/19 12:08 Bedside Glucose 84 87 Medications Medication Current Medications Ondansetron HCl (Zofran Inj) 4 mg Q6H PRN IV NAUSEA AND/OR VOMITING Last administered on 04/12/19at 12:12; Admin Dose 4 MG; Start 04/10/19 at 00:00 Albuterol/ Ipratropium (Duoneb) 3 ml Q2H RESP THERAPY PRN NEB SHORTNESS OF BREATH Last administered on 04/10/19at 04:34; Admin Dose 3 ML; Start 04/10/19 at 00:00 Acetaminophen (Tylenol Liquid) 650 mg Q6H PRN PO PAIN LEVEL 1-3 OR FEVER Last administered on 04/10/19at 21:33; Admin Dose 650 MG; Start 04/10/19 at 00:00 Famotidine (Pepcid) 20 mg DAILY PO Last administered on 04/12/19at 08:14; Admin Dose 20 MG; Start 04/10/19 at 09:00 Heparin Sodium (Porcine) (Heparin (5000 Units/1ml)) 5,000 unit Q12 SC Last administered on 04/10/19at 08:37; Admin Dose 5,000 UNIT; Start 04/10/19 at 09:00; Status Hold Miscellaneous Information 1 ea NOTE XX ; Start 04/10/19 at 00:45 Glucose (Glutose) 15 gm Q15M PRN PO DECREASED GLUCOSE; Start 04/10/19 at 00:45 Glucose (Glutose) 22.5 gm Q15M PRN PO DECREASED GLUCOSE; Start 04/10/19 at 00:45 Dextrose (D50w Syringe) 25 ml Q15M PRN IV DECREASED GLUCOSE Last administered on 04/12/19 02:26; Admin Dose 25 ML; Start 04/10/19 at 00:45 Dextrose (D50w Syringe) 50 ml Q15M PRN IV DECREASED GLUCOSE Last administered on 04/10/19 02:07; Admin Dose 50 ML; Start 04/10/19 at 00:45 Glucagon (Glucagen) 1 mg Q15M PRN IM DECREASED GLUCOSE; Start 04/10/19 at 00:45 Glucose (Glutose) 15 gm Q15M PRN BUCCAL DECREASED GLUCOSE; Start 04/10/19 at 00:45 Levofloxacin/ Dextrose 100 ml @ 100 mls/hr Q48H IVPB Last administered on 04/12/19 08:13; Admin Dose 100 MLS/HR; Start 04/12/19 at 09:00 Acetaminophen/ Hydrocodone Bitart ([place] (5/325)) 1 tab Q6H PRN PO MODERATE PAIN LEVEL 4-6 Last administered on 04/13/19 09:54; Admin Dose 1 TAB; Start 04/10/19 at 09:30 Labetalol HCl (Labetalol) 20 mg Q4H PRN IV SBP GREATER THAN 170 Last administered on 04/11/19 21:48; Admin Dose 20 MG; Start 04/10/19 at 18:00 Acetaminophen/ Hydrocodone Bitart ([place] (5/325)) 2 tab Q4H PRN PO MODERATE PAIN LEVEL 4-6 Last administered on 04/11/19 22:37; Admin Dose 2 TAB; Start 04/10/19 at 21:30 Insulin Aspart (Novolog Insulin Pen) NOVOLOG *MODERATE* ALGORITHM WITH MEALS BEDTIME SC Last administered on 04/12/19 17:34; Admin Dose 2 UNIT; Start 04/11/19 at 07:35 Diagnostic Test (Pha) (Accu-Chek) 1 ea 02 XX Last administered on 04/12/19 02:11; Admin Dose 1 EA; Start 04/12/19 at 02:00 Insulin Aspart (Novolog Insulin Pen) 4 unit WITH MEALS SC Last administered on 04/12/19 17:36; Admin Dose 4 UNIT; Start 04/11/19 at 17:35 Calcium Acetate (Phoslo) 1,334 mg WITH MEALS PO Last administered on 04/13/19 09:48; Admin Dose 1,334 MG; Start 04/11/19 at 17:35 Lactobacillus Acidophilus/ Rhamnosus (Culturelle) 1 cap BID PO Last administered on 04/12/19 22:34; Admin Dose 1 CAP; Start 04/11/19 at 21:00 Lisinopril (Zestril) 10 mg DAILY PO Last administered on 04/12/19 08:13; Admin Dose 10 MG; Start 04/12/19 at 09:00 Nifedipine (Procardia Xl) 30 mg BID PO Last administered on 04/12/19 22:34; Admin Dose 30 MG; Start 04/11/19 at 21:00 Albumin Human 100 ml @ 100 mls/hr WITH DIALYSIS PRN IV SBP <90 DURING DIALYSIS Last administered on 04/12/19 03:52; Admin Dose 100 MLS/HR; Start 04/12/19 at 04:00 Insulin Glargine (Lantus) 8 units DAILY@2000 SC ; Start 04/13/19 at 20:00 LILIAN HALL MD April 13, 2019 14:07
[2019-04-13] MEDS: LACTOBACILLUS RHAMNOSUS CAP PO SCH ×2 (14:36→21:20)
[2019-04-13] MEDS: LISINOPRIL 10 MG TAB PO SCH (14:36)
[2019-04-13] MEDS: NIFEdipine (XL) 30 MG TAB PO SCH ×2 (14:37→21:30)
[2019-04-13] MEDS: FAMOTIDINE 20 MG TAB PO SCH (14:37)
[2019-04-13] MEDS: LABETALOL HCL 20MG INJ IV PRN ×2 (15:32→22:36)
[2019-04-13] MEDS ORDERED: NIFEdipine (XL) 60 MG TAB PO ONE (16:30)
[2019-04-13] MEDS ORDERED: NIFEdipine (XL) 60 MG TAB PO STA (18:45)
[2019-04-13] MEDS ORDERED: INSULIN GLARGINE [LANTus] (100 UNITS/ML) SYG SC SCH (20:00)
[2019-04-14] VITALS (9 sets, daily range): BP systolic 121–172; BP diastolic 58–84; PULSE 67–172; RESP 18–20
[2019-04-14] MEDS: ACCU-CHEK XX SCH (02:00)
[2019-04-14] MEDS: LABETALOL HCL 20MG INJ IV PRN (03:56)
[2019-04-14] MEDS: HYDROCODONE/APAP (5/325) TAB PO PRN ×2 (03:57→18:59)
[2019-04-14] MEDS: FAMOTIDINE 20 MG TAB PO SCH (08:20)
[2019-04-14] MEDS: LACTOBACILLUS RHAMNOSUS CAP PO SCH (08:21)
[2019-04-14] MEDS: CALCIUM ACETATE 667 MG CAP PO SCH ×3 (08:21→17:28)
[2019-04-14] MEDS: LEVOFLOXACIN 500MG/D5W (PMX) 100 ML IVPB SCH (08:21)
[2019-04-14] MEDS: LISINOPRIL 10 MG TAB PO SCH (08:21)
--- NOTE | 2019-04-14 08:47 | CONS ---
Assessment/Plan Assessment/Plan Assessment/Plan (Daily) 1. acute hyperkalemia with K 7.0 on admission - resolved after stat HD 2. Hypertensive emergency 3. ESRD on HD TTS schedule 4. large fluid pleural effusion possibly due to acute fluid overload with Undelrying infiltrates - s/p Left thoracentesis 04/11/19- 1.5 L removed 5. H/o HTN 6. H/o HL 7. H/o DM Plan: s/p Left thoracentesis 04/11/19- 1.5 L removed, , BP stable , s/p HD today 3 L removed, pt will be on TTS schdule( his original schedule) Nifedipine Xl 60mg pO BID - now BP improving IV hydralazine prn will follow up Consultation Date/Type/Reason Admit Date/Time April 09, 2019 at 23:46 Initial Consult Date 04/10/19 Type of Consult NEPHROLOGY Requesting Provider: ISSAC CRUZ MD Date/Time of Note DATE: 04/14/19 TIME: 08:47 Exam/Review of Systems Exam Vitals Vital Signs Date Temp Pulse Resp B/P (MAP) Pulse Ox O2 O2 Flow FiO2 Time Delivery Rate 04/14/19 98.3 68 20 121/58 95 08:31 (79) 04/13/19 Nasal 2.0 20:00 Cannula 04/13/19 28 03:24 Intake and Output 04/13/19 04/13/19 04/14/19 1515:00 23:00 07:00 IntakeIntake Total 800 ml 500 ml OutputOutput Total 3600 ml BalanceBalance -3600 ml 800 ml 500 ml Exam Constitutional: alert, awake, moderate distress Respiratory: congested cough, crackles/rales, diminished breath sounds Cardiovascular: regular rate and rhythm, nl pulses Gastrointestinal: soft, non-tender Musculoskeletal: muscle weakness, swelling Extremities: normal pulses 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, nl mental status, nl speech, nl strength Results Result Diagram: 04/14/19 0542 04/14/19 0542 Results 24hrs Laboratory Tests Test 04/13/19 09:44 04/13/19 12:08 04/13/19 17:09 04/13/19 21:22 Bedside Glucose 84 87 213 168 Test 04/14/19 05:42 04/14/19 07:35 White Blood Count 5.9 Red Blood Count 4.16 L Hemoglobin 12.8 L Hematocrit 40.3 L Mean Corpuscular 96.9 Volume Mean Corpuscular 30.8 Hemoglobin Mean Corpuscular 31.8 L Hemoglobin Concent Red Cell 13.5 Distribution Width Platelet Count 94 L Mean Platelet Volume 11.1 H Immature 0.800 H Granulocytes % Neutrophils % 74.2 Lymphocytes % 7.7 L Monocytes % 16.0 H Eosinophils % 1.0 Basophils % 0.3 Nucleated Red Blood 0.0 Cells % Immature 0.050 H Granulocytes # Neutrophils # 4.4 Lymphocytes # 0.5 L Monocytes # 1.0 H Eosinophils # 0.1 Basophils # 0.0 Nucleated Red Blood 0.0 Cells # Sodium Level 135 Potassium Level 5.3 H Chloride Level 95 L Carbon Dioxide Level 31 Anion Gap 9 Blood Urea Nitrogen 28 H Creatinine 4.37 H Est Glomerular 13 L Filtrat Rate mL/min Glucose Level 194 # Calcium Level 8.5 Bedside Glucose 171 Medications Medication Current Medications Ondansetron HCl (Zofran Inj) 4 mg Q6H PRN IV NAUSEA AND/OR VOMITING Last administered on 04/12/19 12:12; Admin Dose 4 MG; Start 04/10/19 at 00:00 Albuterol/ Ipratropium (Duoneb) 3 ml Q2H RESP THERAPY PRN NEB SHORTNESS OF BREATH Last administered on 04/10/19 04:34; Admin Dose 3 ML; Start 04/10/19 at 00:00 Acetaminophen (Tylenol Liquid) 650 mg Q6H PRN PO PAIN LEVEL 1-3 OR FEVER Last administered on 04/10/19 21:33; Admin Dose 650 MG; Start 04/10/19 at 00:00 Famotidine (Pepcid) 20 mg DAILY PO Last administered on 04/14/19 08:20; Admin Dose 20 MG; Start 04/10/19 at 09:00 Heparin Sodium (Porcine) (Heparin (5000 Units/1ml)) 5,000 unit Q12 SC Last administered on 04/10/19 08:37; Admin Dose 5,000 UNIT; Start 04/10/19 at 09:00; Status Hold Miscellaneous Information 1 ea NOTE XX ; Start 04/10/19 at 00:45 Glucose (Glutose) 15 gm Q15M PRN PO DECREASED GLUCOSE; Start 04/10/19 at 00:45 Glucose (Glutose) 22.5 gm Q15M PRN PO DECREASED GLUCOSE; Start 04/10/19 at 00:45 Dextrose (D50w Syringe) 25 ml Q15M PRN IV DECREASED GLUCOSE Last administered on 04/12/19 02:26; Admin Dose 25 ML; Start 04/10/19 at 00:45 Dextrose (D50w Syringe) 50 ml Q15M PRN IV DECREASED GLUCOSE Last administered on 04/10/19 02:07; Admin Dose 50 ML; Start 04/10/19 at 00:45 Glucagon (Glucagen) 1 mg Q15M PRN IM DECREASED GLUCOSE; Start 04/10/19 at 00:45 Glucose (Glutose) 15 gm Q15M PRN BUCCAL DECREASED GLUCOSE; Start 04/10/19 at 00:45 Levofloxacin/ Dextrose 100 ml @ 100 mls/hr Q48H IVPB Last administered on 04/14/19 08:21; Admin Dose 100 MLS/HR; Start 04/12/19 at 09:00 Acetaminophen/ Hydrocodone Bitart (Braggs (5/325)) 1 tab Q6H PRN PO MODERATE PAIN LEVEL 4-6 Last administered on 04/13/19 09:54; Admin Dose 1 TAB; Start 04/10/19 at 09:30 Labetalol HCl (Labetalol) 20 mg Q4H PRN IV SBP GREATER THAN 170 Last administered on 04/14/19 03:56; Admin Dose 20 MG; Start 04/10/19 at 18:00 Acetaminophen/ Hydrocodone Bitart (Braggs (5/325)) 2 tab Q4H PRN PO MODERATE PAIN LEVEL 4-6 Last administered on 04/14/19 03:57; Admin Dose 2 TAB; Start 04/10/19 at 21:30 Insulin Aspart (Novolog Insulin Pen) NOVOLOG *MODERATE* ALGORITHM WITH MEALS BEDTIME SC Last administered on 04/13/19 17:16; Admin Dose 4 UNIT; Start 04/11/19 at 07:35 Diagnostic Test (Pha) (Accu-Chek) 1 ea 02 XX Last administered on 04/12/19 02:11; Admin Dose 1 EA; Start 04/12/19 at 02:00 Insulin Aspart (Novolog Insulin Pen) 4 unit WITH MEALS SC Last administered on 04/13/19 17:16; Admin Dose 4 UNIT; Start 04/11/19 at 17:35 Calcium Acetate (Phoslo) 1,334 mg WITH MEALS PO Last administered on 04/14/19 08:21; Admin Dose 1,334 MG; Start 04/11/19 at 17:35 Lactobacillus Acidophilus/ Rhamnosus (Culturelle) 1 cap BID PO Last administered on 04/14/19 08:21; Admin Dose 1 CAP; Start 04/11/19 at 21:00 Lisinopril (Zestril) 10 mg DAILY PO Last administered on 04/14/19 08:21; Admin Dose 10 MG; Start 04/12/19 at 09:00 Albumin Human 100 ml @ 100 mls/hr WITH DIALYSIS PRN IV SBP <90 DURING DIALYSIS Last administered on 04/12/19 03:52; Admin Dose 100 MLS/HR; Start 04/12/19 at 04:00 Insulin Glargine (Lantus) 8 units DAILY@2000 SC Last administered on 04/13/19 21:25; Admin Dose 8 UNITS; Start 04/13/19 at 20:00 Nifedipine (Procardia Xl) 60 mg BID PO Last administered on 04/14/19 08:21; Admin Dose 60 MG; Start 04/14/19 at 09:00 LILIAN HALL MD April 14, 2019 08:47
[2019-04-14] MEDS ORDERED: NIFEdipine (XL) 60 MG TAB PO SCH (09:00)
[2019-04-14] MEDS: INSULIN ASPART [NOVOLOG] 3 ML PEN SC SCH ×6 (09:55→17:32)
[2019-04-14] MEDS ORDERED: LEVO750T8 PO (12:23)
[2019-04-14] MEDS ORDERED: HYDR-3601 PO (12:23)
--- NOTE | 2019-04-14 12:30 | PDOCDIS ---
Discharge Instructions DIAGNOSIS Discharge Diagnosis Pleural effusion, likely parapneumonic effusion. CONDITION [id number] Patient Condition: Iqbby0m Fair HOME CARE INSTRUCTIONS: 2 [id number] Diet Instructions: Yoput8m Reduced Sodium ACTIVITY: [id number] Activity Restrictions: [id number] No Restrictions FOLLOW UP/APPOINTMENTS Follow-up Plan 1. Continue to take all medications as prescribed. 2. Take tylenol for pain. If pain is very severe, take [place]. 3. See your primary care doctor in 1-2 weeks. PAUL GUILLORY MD April 14, 2019 12:30
--- NOTE | 2019-04-14 19:28 | DS ---
Date/Time of Note Date/Time of Note DATE: 04/14/19 TIME: 19:16 Discharge Summary Admission/Discharge Info Admit Date/Time April 09, 2019 at 23:46 Discharge Date/Time April 14, 2019 at 19:12 Discharge Diagnosis Pleural effusion, likely parapneumonic effusion. Patient Condition: Good Consults Dr. Servin, nephrology Hx of Present Illness This is a 68-year-old male with a history of hypertension, ESRD on HD and type I diabetes who was brought to the ER for hypoglycemia. Patient was diaphoretic and appeared weak and lethargic. Also was complaining of shortness of breath. Blood glucose reportedly was as low as 28. When he presented to the ER, he was 83 but quickly dropped to 35. He received dextrose. Patient was also noted to have a potassium of 6.8. Last dialysis was yesterday. Blood pressure also has been as high as 241/83 and I have started him on nitro drip. Chest x-ray shows the following 1. Interval development of left lower thorax opacification likely compressive atelectasis from a large left pleural effusion although left lower lobe pneumonia with a parapneumonic effusion is a differential diagnostic possibility. Consider follow-up consultation for thoracentesis. 2. Stable mild cardiac silhouette enlargement with an element of interstitial edema and congestive heart failure difficult to exclude. Hospital Course Initially, the patient was admitted to the ICU on nitroglycerin gtt. Oral antihypertensives were resumed and he got dialysis with improvement of blood pressure. Blood sugars also improved after dialysis and he was resumed on his previous insulin dose with good glucose control. He was found to have a large left sided pleural effusion. Got a thoracentesis, fluid was barely exudative by Light's criteria (pleural protein 0.55 / serum protein). Unfortunately the sample was not sent to micro lab despite my efforts. So we were unable to get a gram stain or culture on it. Made a plan to treat as a parapneumonic effusion with 7 days of levofloxacin. The patient was oxygenating well on room air after the procedure, but did have significant pain afterwards. Will discharge on a few days of Bowman. Home Meds Active Scripts Hydrocodone Bit-Acetaminophen (Hydrocodone Bit-APAP) 5-325MG Tablet, 1 TAB PO Q4H PRN for MODERATE PAIN LEVEL 4-6, #24 TAB Prov:PAUL GUILLORY MD 04/14/19 Levofloxacin* (Levofloxacin*) 750 Mg Tablet, 750 MG PO Q48H, #4 TAB Prov:PAUL GUILLORY MD 04/14/19 Lactobacillus Rhamnosus* (Culturelle*) 1 Each Cap.sprink, 1 CAP PO BID for 7 Days, CAP Prov:ROXANNA CHAVEZ 08/06/17 Lisinopril* (Lisinopril*) 10 Mg Tablet, 10 MG PO DAILY, #30 TAB Prov:ROXANNA CHAVEZ 08/06/17 Nifedipine (Procardia Xl) 30 Mg Tab.er.24, 30 MG PO BID for 30 Days, TAB [facility]17 Linagliptin (TRADJENTA) 5 Mg Tablet, 5 MG PO DAILY for 30 Days, TAB Prov:ROXANNA CHAVEZ 08/06/17 Insulin Glargine* (Lantus*) 100 Unit/Ml Soln, 8 UNIT SC BID@08,20 for 30 Days Prov:ROXANNA CHAVEZ 08/06/17 Insulin Aspart* (Novolog Insulin Pen*) 100 Unit/Ml Soln, 3 UNIT SC WITH MEALS for 30 Days Prov:ROXANNA CHAVEZ 08/06/17 Terbinafine* (Lamisil*) 250 Mg Tablet, 250 MG PO BID for 14 Days, TAB Prov:ROXANNA CHAVEZ. 08/06/17 Reported Medications Pantoprazole* (Pantoprazole*) 40 Mg Tablet.dr, 40 MG PO AC BREAKFAST DINNER, TAB 08/03/17 Calcium Acetate* (Calcium Acetate*) 667 Mg Capsule, 1334 MG PO WITH MEALS, #60 CAP 08/03/17 Discontinued Reported Medications Levofloxacin* (Levofloxacin*) 750 Mg Tablet, 750 MG PO Q48H, TAB 08/17/17 Follow-up Plan 1. Continue to take all medications as prescribed. 2. Take tylenol for pain. If pain is very severe, take Bowman. 3. See your primary care doctor in 1-2 weeks. Primary Care Provider Irvin Thomason MD Time spent on discharge: > 30 minutes Pending Labs Laboratory Tests Test 04/13/19 21:22 04/14/19 05:42 04/14/19 07:35 04/14/19 12:03 Bedside 168 171 198 Glucose mg/dL (70-220) mg/dL (70-220) mg/dL (70-220) White Blood 5.9 Count 10^3/ul (4.8-1 0.8) Red Blood 4.16 Count 10^6/ul (4.70- 6.10) Hemoglobin 12.8 g/dl (14.0-18. 0) Hematocrit 40.3 % (42.0-52.0) Mean 96.9 Corpuscular fl (82.0-101.0 Volume ) Mean 30.8 Corpuscular pg (29.0-33.0) Hemoglobin Mean 31.8 Corpuscular g/dl (32.0-37. Hemoglobin Conc 0) ent Red Cell 13.5 Distribution % (11.5-14.5) Width Platelet Count 94 10^3/UL (140-4 15) Mean Platelet 11.1 Volume fl (7.4-10.4) Immature 0.800 Granulocytes % % (0.001-0.429 ) Neutrophils % 74.2 % (39.0-77.0) Lymphocytes % 7.7 % (15.0-51.0) Monocytes % 16.0 % (0.0-11.0) Eosinophils % 1.0 % (0.0-7.0) Basophils % 0.3 % (0.0-2.0) Nucleated Red 0.0 Blood Cells % /100WBC (0.0-0 .0) Immature 0.050 Granulocytes # 10^3/ul (0.0-0 .031) Neutrophils # 4.4 10^3/ul (1.6-7 .5) Lymphocytes # 0.5 10^3/ul (0.8-2 .9) Monocytes # 1.0 10^3/ul (0.3-0 .9) Eosinophils # 0.1 10^3/ul (0.0-0 .5) Basophils # 0.0 10^3/ul (0.0-0 .1) Nucleated Red 0.0 Blood Cells # 10^3/ul (0.0-0 .0) Sodium Level 135 mmol/L (135-14 4) Potassium 5.3 Level mmol/L (3.5-5. 1) Chloride Level 95 mmol/L (97-110 ) Carbon Dioxide 31 Level mmol/L (21-31) Anion Gap 9 (5-13) Blood Urea 28 Nitrogen mg/dl (7-20) Creatinine 4.37 mg/dl (0.61-1. 24) Est Glomerular 13 Filtrat mL/min (>60) Rate mL/min Glucose Level 194 mg/dl (70-220) Calcium Level 8.5 mg/dl (8.4-10. 2) Test 04/14/19 17:20 Bedside 179 Glucose mg/dL (70-220) PAUL GUILLORY MD April 14, 2019 19:26
== END 2019-04-14 19:12 | disposition home or self-care (01) | DRG 304 ==
LOC: E/R 21:36 → ICU 23:46 → EDBEDREQ 23:59 → ICU 04-10 01:27 → 6WM 04-12 19:23
PROVIDERS: ADMIT Internal Medicine; ATTEND Internal Medicine
PROC: 0W9B3ZZ Drainage of Left Pleural Cavity, Percutaneous Approach (ICD-10-PCS; principal; 2019-04-11)
PROC: 5A1D70Z Performance of Urinary Filtration, Intermittent, Less than 6 Hours Per Day (ICD-10-PCS; 2019-04-11)
PROC: 5A1D70Z Performance of Urinary Filtration, Intermittent, Less than 6 Hours Per Day (ICD-10-PCS; 2019-04-13)
DX: I16.1 Hypertensive emergency (principal); N18.6 End stage renal disease; J91.8 Pleural effusion in other conditions classified elsewhere; E10.649 Type 1 diabetes mellitus with hypoglycemia without coma; I12.0 Hypertensive chronic kidney disease with stage 5 chronic kidney disease or end stage renal disease; Z99.2 Dependence on renal dialysis; E10.22 Type 1 diabetes mellitus with diabetic chronic kidney disease; E87.5 Hyperkalemia; E78.5 Hyperlipidemia, unspecified; Z83.3 Family history of diabetes mellitus
CPT/HCPCS: 36415; 70450; 70551; 71045; 76942; 80048; 80053; 80076; 82042; 82945; 82962; 83036; 83615; 83735; 83986; 84100; 84157; 84484; 85025; 85610; 85730; 86706; 87070; 87081; 87102; 87116; 87340; 88104; 88305; 89051; 90935; 93005; 94664; 96374; 96375; 97116; 97163; 97530; J0360; J0610; J1644; J1815; J1956; J2270; J2405; J7042; P9047

== ENCOUNTER 2019-06-21 13:31 | Inpatient (IN) | payer OTHER ==
[2019-06-21] VITALS (12 sets, daily range): BP systolic 148–196; BP diastolic 68–83; PULSE 62–66; RESP 14–30; Ht 162.6 cm; Wt 61.1 kg
[~2019-06-21] VITALS: Ht 162.6 cm; Wt 61.1 kg
[~2019-06-21 13:31] MED LIST changes: +HYDR-3601 PO
--- NOTE | 2019-06-21 14:26 | ERD ---
ER Documentation Chief Complaint Chief Complaint left arm swelling and bilateral posterior leg swelling x over a month HPI The patient is a 68-year-old male, presenting to the ER because of left upper extremity edema for more than 2 months, acute and chronic bilateral extremity edema, by dyspnea, denies PND/orthopnea. Denies fever, chills, neck pain, chest pain, abdominal pain, vomiting, dysuria, diarrhea. He does not smoke nor drink Past medical history: Hypertension, diabetes mellitus, chronic kidney disease on hemodialysis Friday and Friday Surgical history: Left upper extremity AV fistula ROS All systems reviewed and are negative except as per history of present illness. Medications Home Meds Reported Medications Furosemide* (Furosemide*) 80 Mg Tablet, 80 MG PO QAM, #30 TAB 06/21/19 Hydralazine Hcl* (Hydralazine Hcl*) 50 Mg Tab, 50 MG PO TID PRN for ELEVATED BLOOD PRESSURE, #90 TAB 06/21/19 Labetalol Hcl* (Labetalol Hcl*) 200 Mg Tablet, 200 MG PO TID, TAB 06/21/19 Insulin Glargine* (Lantus*) 100 Unit/Ml Soln, 10 UNIT SC QHS, #1 VIAL 06/21/19 Insulin Lispro (Humalog Kwikpen) 200 Unit/1 Ml Insuln.pen, 4 UNIT SQ QAM, EA 06/21/19 Calcium Acetate* (Calcium Acetate*) 667 Mg Capsule, 1334 MG PO WITH MEALS, #60 CAP 06/21/19 Discontinued Reported Medications Pantoprazole* (Pantoprazole*) 40 Mg Tablet.dr, 40 MG PO AC BREAKFAST DINNER, TAB 08/03/17 Calcium Acetate* (Calcium Acetate*) 667 Mg Capsule, 1334 MG PO WITH MEALS, #60 CAP 08/03/17 Discontinued Scripts Hydrocodone Bit-Acetaminophen (Hydrocodone Bit-APAP) 5-325MG Tablet, 1 TAB PO Q4H PRN for MODERATE PAIN LEVEL 4-6, #24 TAB Prov:PAUL GUILLORY MD 04/14/19 Levofloxacin* (Levofloxacin*) 750 Mg Tablet, 750 MG PO Q48H, #4 TAB Prov:PAUL GUILLORY MD 04/14/19 Lactobacillus Rhamnosus* (Culturelle*) 1 Each Cap.sprink, 1 CAP PO BID for 7 Days, CAP Prov:ROXANNA CHAVEZ. 08/06/17 Lisinopril* (Lisinopril*) 10 Mg Tablet, 10 MG PO DAILY, #30 TAB Prov:ROXANNA CHAVEZ. 08/06/17 Nifedipine (Procardia Xl) 30 Mg Tab.er.24, 30 MG PO BID for 30 Days, TAB Prov:ROXANNA CHAVEZ. 08/06/17 Linagliptin (TRADJENTA) 5 Mg Tablet, 5 MG PO DAILY for 30 Days, TAB Prov:ROXANNA CHAVEZ. 08/06/17 Insulin Glargine* (Lantus*) 100 Unit/Ml Soln, 8 UNIT SC BID@08,20 for 30 Days Prov:ROXANNA CHAVEZ 08/06/17 Insulin Aspart* (Novolog Insulin Pen*) 100 Unit/Ml Soln, 3 UNIT SC WITH MEALS for 30 Days Prov:ROXANNA CHAVEZ. 08/06/17 Terbinafine* (Lamisil*) 250 Mg Tablet, 250 MG PO BID for 14 Days, TAB Prov:ROXANNA CHAVEZ. 08/06/17 Allergies Allergies: Coded Allergies: No Known Allergy (Unverified , 06/21/19) PMhx/Soc History of Surgery: Yes Anesthesia Reaction: No Hx Neurological Disorder: No Hx Respiratory Disorders: No Hx Cardiac Disorders: Yes Hx Psychiatric Problems: No Hx Miscellaneous Medical Probl: Yes (See note) Hx Alcohol Use: No Hx Substance Use: No Hx Tobacco Use: No Physical Exam Vitals Vital Signs Date Temp Pulse Resp B/P (MAP) Pulse Ox O2 O2 Flow FiO2 Time Delivery Rate 06/21/19 97.5 59 19 153/70 95 Room Air 18:59 (97) 06/21/19 59 17 148/67 100 Room Air 18:09 (94) 06/21/19 59 17 156/72 100 Room Air 17:40 (100) 06/21/19 59 17 131/64 100 Room Air 17:01 (86) 06/21/19 59 17 213/71 98 Room Air 16:37 (118) 06/21/19 20 100 21 16:12 06/21/19 69 17 227/73 99 Room Air 14:51 (124) 06/21/19 97.9 60 18 216/86 97 13:35 (129) Physical Exam Const: No acute distress. Head: Atraumatic. Eyes: Normal Conjunctiva. ENT: Normal External Ears, Nose and Mouth. Neck: Full range of motion. No meningismus. Resp: Clear to auscultation bilaterally. Cardio: Regular rate and rhythm. Abd: Soft, non distended, normal bowel sounds, non tender. Skin: No petechiae or rashes. Back: No midline or flank tenderness. Ext: Left upper extremity and bilateral lower extremity edema, no calf tenderness Neur: Awake and alert. No focal deficit Psych: Normal Mood and Affect. Result Diagram: 06/21/19 1450 06/21/19 1450 Results 24 hrs Laboratory Tests Test 06/21/19 14:50 06/21/19 16:13 06/21/19 16:46 White Blood Count 4.0 10^3/ul Red Blood Count 3.65 10^6/ul Hemoglobin 11.2 g/dl Hematocrit 36.4 % Mean Corpuscular Volume 99.7 fl Mean Corpuscular Hemoglobin 30.7 pg Mean Corpuscular 30.8 g/dl Hemoglobin Concent Red Cell Distribution Width 15.3 % Platelet Count 106 10^3/UL Mean Platelet Volume 12.4 fl Immature Granulocytes % 0.500 % Neutrophils % 73.1 % Lymphocytes % 14.1 % Monocytes % 8.8 % Eosinophils % 2.0 % Basophils % 1.5 % Nucleated Red Blood Cells % 0.0 /100WBC Immature Granulocytes # 0.020 10^3/ul Neutrophils # 2.9 10^3/ul Lymphocytes # 0.6 10^3/ul Monocytes # 0.4 10^3/ul Eosinophils # 0.1 10^3/ul Basophils # 0.1 10^3/ul Nucleated Red Blood Cells # 0.0 10^3/ul Prothrombin Time 13.6 Sec Prothrombin Time Ratio 1.1 INR International Normalized Ratio 1.03 Activated Partial Thromboplast 30.3 Sec Time Sodium Level 138 mmol/L Potassium Level 6.3 mmol/L Chloride Level 100 mmol/L Carbon Dioxide Level 28 mmol/L Anion Gap 10 Blood Urea Nitrogen 56 mg/dl Creatinine 6.76 mg/dl Est Glomerular Filtrat Rate mL/min 8 mL/min Glucose Level 407 mg/dl Calcium Level 8.4 mg/dl Bedside Glucose 335 mg/dL 316 mg/dL Current Medications Medications Dose Sig/Lise Start Time Status Last (Trade) Ordered Route PRN Stop Time Admin Dose Reason Admin Ondansetron 4 mg ONCE STAT 06/21/19 DC 06/21/19 HCl (Zofran IV 14:50 14:56 Inj) 06/21/19 14:51 Sodium 30 gm ONCE STAT 06/21/19 DC 06/21/19 Polystyrene PO 15:34 16:17 Sulfonate 06/21/19 15:37 (Kayexelate 15 Gm Kit (Powder+Sorbi bo)) Albuterol 15 mg ONCE STAT 06/21/19 DC 06/21/19 (Proventil INH 15:34 16:11 0.5% (Neb)) 06/21/19 15:37 Insulin 10 unit ONCE STAT 06/21/19 DC 06/21/19 Human IVP 15:34 16:16 Regular 06/21/19 15:37 (Humulin R) Dextrose ONCE PRN 06/21/19 (D50w IV DECREASED 16:00 Syringe) GLUCOSE 06/22/19 15:59 250 ml @ TITRATE IV 06/21/19 06/21/19 Nitroglycerin 1.5 mls/hr 17:00 19:18 / Dextrose Procedures/[place] [id number] Radiology Main Line: [phone] DIAGNOSTIC IMAGING REPORT Patient: PETE PRUITT : 1950 Age: 68 Sex: M MR #: [id number] DOS: 06/21/19 1438 Ordering MD: NELY GARCIA MD Location: E/R Room/Bed: PROCEDURE: XR Chest. CLINICAL INDICATION: Shortness of breath. TECHNIQUE: Chest, 1 view. COMPARISON: Chest radiograph 04/11/2019. FINDINGS: The cardiomediastinal silhouette demonstrates enlargement of the cardiac silhouette. There are aortic calcifications. There is pulmonary vascular congestion. Left mid to lower lung and right basilar consolidation. Moderate left pleural effusion. No definite pneumothorax is seen. No acute osseous abnormality. Incomplete imaged stents along the left upper extremity. IMPRESSION: Cardiomegaly with pulmonary vascular congestion. Left mid to lower lung and right basilar consolidation, which may represent atelectasis however pneumonia not excluded. Moderate left pleural effusion. RPTAT: BB the Physician Kristi Date Time Electronically viewed and signed by Christian Ibrahim Physician on 06/21/2019 15:23 PH/ CC: NELY GARCIA MD [id number] [place] [address] Radiology Main Line: [phone] DIAGNOSTIC IMAGING REPORT Patient: PETE PRUITT : 1950 Age: 68 Sex: M MR #: [id number] DOS: 06/21/19 0000 Ordering MD: NELY GARCIA MD Location: E/R Room/Bed: PROCEDURE: US Lower extremity Venous. CLINICAL INDICATION: Bilateral lower extremity edema TECHNIQUE: Multiple sonographic images of the bilateral lower extremity deep venous system was obtained utilizing grayscale, color-flow, compressive sonography and doppler imaging with augmentation. The images were reviewed on a PACS workstation. COMPARISON: None. FINDINGS: There is normal compressibility and flow within the right common femoral, femoral , posterior tibial and popliteal veins. There is normal compressibility and flow within the left common femoral, femoral , posterior tibial and popliteal veins. RPTAT: AA IMPRESSION: No sonographic evidence for deep venous thrombosis. .Malcolm Hartley MD, Date Time Electronically viewed and signed by .Malcolm Hartley MD, MD on 06/21/2019 15:44 .S/ CC: NELY GARCIA MD [id number] [place] [address] Radiology Main Line: [phone] DIAGNOSTIC IMAGING REPORT Patient: PETE PRUITT : 1950 Age: 68 Sex: M [id number] [id number] DOS: 06/21/19 0000 Ordering MD: NELY GARCIA MD Location: E/R Room/Bed: PROCEDURE: US left upper extremity veins. CLINICAL INDICATION: Left arm pain and swelling. TECHNIQUE: Multiple longitudinal and transverse images of the left upper extremity venous tree was obtained with oliva scale, pulsed Doppler, and color Do ppler imaging. COMPARISON: None available FINDINGS: The left internal jugular, subclavian, axillary, brachial, basilic, radial, ulnar, and cephalic veins are patent. There is normal flow with augmentation and compressibility throughout. There is no thrombus or occlusion. There is soft tissue swelling and edema in the left upper extremity. IMPRESSION: 1. Normal venous system of the left upper extremity. No evidence of thrombus or occlusion. RPTAT: QQ Physician Jewel Date Time Electronically viewed and signed by Physician Jewel on 06/21/2019 16:14 RD/ CC: NELY GARCIA MD [id number] EKG: Read by emergency physician Rate/Rhythm: Normal Sinus Rhythm 66 beats/min QRS, ST, T-waves: No ST elevation, no T inversion, SA, low voltage QRS Impression: Abnormal EKG MEDICAL MAKING DECISION: The patient is a 68-year-old male, presenting with acute fluid overload, acute hyperkalemia, left upper extremity and lower extremity edema, acute hyperglycemia, acute left pleural effusion, acute hypertensive emergency He was treated with Zofran IV for nausea, albuterol 15 mg continuous nebulizer and 10 units of regular insulin IV, Kayexalate 30 g p.o. acute hyperkalemia, nitroglycerin drip for acute hypertensive emergency The differential diagnoses considered include but are not limited to superior vena cava syndrome, malfunction AV fistula, CHF, medical noncompliance, dietary noncompliance, Critical Care: Time: 35 minutes excluding all billable procedures. Treatments/Evaluations: Close monitoring and treatment of unstable vital signs, cardiorespiratory, and neurologic status, while maintaining tight balance of fluid, respiratory, and cardiac interventions. I Consultation: I discussed the patient with the IPA physician Dr Reynolds at 4:30pm, was made aware of the lab, the treatment, the patient condition and she would like to transfer the patient The field nurse case manager contacted us at 7 PM and would like us to be the patient to be admitted here at [facility] I discussed the patient with senior electrical design engineer per hospitalist request Dr. Servin at 7:10 PM, who was made aware that the patient needs emergent dialysis and he would arrange for dialysis tonight Departure Diagnosis: Primary Impression: Fluid overload Additional Impressions: Hyperkalemia Hypertensive emergency Hyperglycemia Pleural effusion, left Pancytopenia Condition: Critical Comments I discussed the findings with the patient. I notified the patient with Dr. Crowder at 7pm via [employer] , who was made aware of the lab, the treatment, the patient condition. The patient is admitted to ICU Disclaimer: Inadvertent spelling and grammatical errors are likely due to E HR/dictation software use and do not reflect on the overall quality of patient care. Also, please note that the electronic time recorded on this note does not necessarily reflect the actual time of the patient encounter. NELY GARCIA MD Jun 21, 2019 14:26
[2019-06-21] MEDS ORDERED: ONDANSETRON 4 MG INJ IV STA (14:50)
[2019-06-21] MEDS ORDERED: ALBUTEROL 0.5% (NEB) 2.5 MG/0.5 ML AMP INH STA (15:34)
[2019-06-21] MEDS ORDERED: SODIUM POLYSTYRENE 15 GM KIT (POWDER + SORBITOL) PO STA (15:34)
[2019-06-21] MEDS ORDERED: INSULIN REGULAR, HUMAN 100 UNIT/1 ML 3ML VIAL IVP STA (15:34)
[2019-06-21] MEDS ORDERED: DEXTROSE 50% 50 ML SYRINGE IV PRN (16:00)
[2019-06-21] MEDS: NITROGLYCERIN 50 MG/D5W (PMX) 250 ML IV SCH ×3 (16:54→22:41)
[2019-06-21] MEDS ORDERED: LABE200T25 PO (17:05)
[2019-06-21] MEDS ORDERED: LANT3I SC (17:05)
[2019-06-21] MEDS ORDERED: FURO80TA3 PO (17:05)
[2019-06-21] MEDS ORDERED: INSU200I SQ (17:05)
[2019-06-21] MEDS ORDERED: CALC667C PO (17:05)
[2019-06-21] MEDS ORDERED: HYDR-3672 PO (17:05)
--- NOTE | 2019-06-21 20:28 | HP ---
Date/Time of Note Date/Time of Note DATE: 06/21/19 TIME: 20:27 Assessment/Plan VTE Prophylaxis Pharmacological prophylaxis: heparin Lines/Catheters IV [facility] Type [facility] Saline Lock Assessment/Plan Hospital Course This is a 68-year-old male being admitted to the ICU floor for: #1 hypertensive crisis: Patient presented with blood pressures in the 200 systolic. Likely secondary to volume overload from end-stage renal disease/ underlying hypertension. Patient was started on nitroglycerin drip which did result in improvement of the blood pressures. Patient is scheduled to be dialyzed tonight, nephrology is ready been consulted. Will resume home medications and titrate the drip as tolerated. #2 hyperkalemia: Patient was given treatment in the emergency department with insulin, Kayexalate, nephrology has been consulted for stat dialysis. #3 end-stage renal disease: Patient is on HD Friday. Stat d ialysis has been ordered, Dr. Servin is on board. #4 left-sided pleural effusion: check echo. We will obtain the ultrasound thoracentesis and order pleural fluid analysis including Gram stain, albumin, lactate dehydrogenase, protein, cell count #5 hypertension: Resume home blood pressure medications and titrate off nitro drip as indicated #6 diabetes mellitus: We will check hemoglobin A 1C, resume home insulin, insulin sliding scale. #7 normocytic anemia: Likely secondary to underlying end-stage renal disease. Nephrology on board. #8 left upper extremity and bilateral lower extremity edema: This appears to be going on for the last 2 months according to the patient. Ultrasound Dopplers of the left upper extremity and bilateral lower extremities were negative for DVT. #9 DVT GI prophylaxis: Heparin subcu, H2 casie Further treatment strategy will be implemented as per the clinical course Greater than 35 minutes of critical care time was spent on the care management this patient. Patient was accepted to [facility] however [facility] was [facility] to [facility] as he was not stable for transfer there. Result Diagram: 06/21/19 1450 06/21/19 1450 Results 24hrs Laboratory Tests Test 06/21/19 14:50 06/21/19 16:13 06/21/19 16:46 White Blood Count 4.0 #L Red Blood Count 3.65 L Hemoglobin 11.2 L Hematocrit 36.4 L Mean Corpuscular Volume 99.7 Mean Corpuscular Hemoglobin 30.7 Mean Corpuscular Hemoglobin Concent 30.8 L Red Cell Distribution Width 15.3 H Platelet Count 106 L Mean Platelet Volume 12.4 H Immature Granulocytes % 0.500 H Neutrophils % 73.1 Lymphocytes % 14.1 L Monocytes % 8.8 Eosinophils % 2.0 Basophils % 1.5 Nucleated Red Blood Cells % 0.0 Immature Granulocytes # 0.020 Neutrophils # 2.9 Lymphocytes # 0.6 L Monocytes # 0.4 Eosinophils # 0.1 Basophils # 0.1 Nucleated Red Blood Cells # 0.0 Prothrombin Time 13.6 Prothrombin Time Ratio 1.1 INR International Normalized Ratio 1.03 Activated Partial Thromboplast Time 30.3 Sodium Level 138 Potassium Level 6.3 *H Chloride Level 100 Carbon Dioxide Level 28 Anion Gap 10 Blood Urea Nitrogen 56 H Creatinine 6.76 H Est Glomerular Filtrat Rate mL/min 8 L Glucose Level 407 *H Calcium Level 8.4 Bedside Glucose 335 H 316 H HPI/ROS Admit Date/Time Admit Date/Time Hx of Present Illness Chief complaint: Swelling of the bilateral legs and left upper extremity x2 months Patient is a poor historian. This is a 68-year-old male who presents to the emergency department complaining of left upper extremity edema and bilateral lower extremity edema for the last 2 months. Patient also reports some shortness of breath. He denies any fevers chills nausea vomiting or diarrhea. Patient did report that he last had his dialysis on Friday. He goes for hemodialysis Friday. When he arrived to the emergency department he was noted to have a blood pressure of 227/73. He was started on nitroglycerin drip. His laboratory values were significant for hyperkalemia of 6.3. And a blood glucose of 407. Patient was given treatment in the ED for his hyperkalemia. A stat consult for dialysis was called to Dr. Servin of nephrology. Allergies: NKDA Medications: See Jan Const: As per HPI Eyes : No pain discharge or redness or change in visual acuity ENT: No pain, sore throat, congestion, congestion, dysphagia or discharge Respiratory: As per HPI Cardiovascular: No chest pain, palpitation, PND, or edema GI : no change in appetite, abdominal pain, nausea, vomiting, diarrhea, constipation, or change in the color his stool Genitourinary: No dysuria, hematuria, flank pain , discharge or CVA tenderness Musculoskeletal: As per HPI Skin: No rash, bruising or hives Neuro: No headache, dizziness, syncope, seizure, focal weakness Endocrine: No polyuria, polydipsia, temperature intolerance Psych: No hallucination, depression, anxiety or suicidal ideation PMH/Family/Social Past Medical History Hypertension, diabetes mellitus, chronic kidney disease on hemodialysis Friday and Friday Medications Current Medications Dextrose (D50w Syringe) ONCE PRN IV DECREASED GLUCOSE; Start 06/21/19 at 16:00; Stop 06/22/19 at 15:59 Nitroglycerin/ Dextrose 250 ml @ 1.5 mls/hr TITRATE IV Last administered on 06/21/19at 19:18; Admin Dose 1.5 MLS/HR; Start 06/21/19 at 17:00 Coded Allergies: No Known Allergy (Unverified , 06/21/19) Past Surgical History Left upper extremity AV fistula Past Surgical Hx: other Family History Significant Family History: no pertinent family hx Social History Alcohol Use: none Smoking Status: Never smoker Drug Use: none Exam/Review of Systems Vital Signs Vitals Vital Signs Date Temp Pulse Resp B/P (MAP) Pulse Ox O2 O2 Flow FiO2 Time Delivery Rate 06/21/19 66 16 140/64 96 Room Air 20:25 (89) 06/21/19 97.5 18:59 06/21/19 21 16:12 Exam Exam General: Patient is a pleasant male currently in bed in no acute distress. HEENT: Atraumatic, normocephalic. The pupils are equal, round and reactive. Extraocular motor are intact Neck: Supple with full range of motion. No rigidity or meningismus Chest: Nontender Lungs: Diminished breath sounds over the left lung base, crackles rales bilaterally Heart: Normal S1-S2, Regular rhythm and rate. No murmur, S3, or S4 Abdomen: Soft , nontender, nondistended , bowel sounds are present. No guarding no rebound tenderness , No masses or organomegaly. No costovertebral temporal angle mass Extremities: Left upper extremity AV fistula, left upper extremity 2+ pitting edema, bilateral lower extremity 2+ pitting edema Neurologic: Normal mental status, speech normal, cranial nerves II through XII are intact, motor and sensory are intact, no focal weakness Additional Comments PROCEDURE: XR Chest. CLINICAL INDICATION: Shortness of breath. TECHNIQUE: Chest, 1 view. COMPARISON: Chest radiograph 04/11/2019. FINDINGS: The cardiomediastinal silhouette demonstrates enlargement of the cardiac silhouette. There are aortic calcifications. There is pulmonary vascular congestion. Left mid to lower lung and right basilar consolidation. Moderate left pleural effusion. No definite pneumothorax is seen. No acute osseous abnormality. Incomplete imaged stents along the left upper extremity. IMPRESSION: Cardiomegaly with pulmonary vascular congestion. Left mid to lower lung and right basilar consolidation, which may represent atelectasis however pneumonia not excluded. Moderate left pleural effusion. RPTAT: BB the Physician Kristi Date Time Electronically viewed and signed by Christian Ibrahim Physician on 06/21/2019 15:23 PH/ CC: NELY GARCIA MD [id number] PROCEDURE: US Lower extremity Venous. CLINICAL INDICATION: Bilateral lower extremity edema TECHNIQUE: Multiple sonographic images of the bilateral lower extremity deep venous system was obtained utilizing grayscale, color-flow, compressive sonography and doppler imaging with augmentation. The images were reviewed on a PACS workstation. COMPARISON: None. FINDINGS: There is normal compressibility and flow within the right common femoral, femoral , posterior tibial and popliteal veins. There is normal compressibility and flow within the left common femoral, femoral , posterior tibial and popliteal veins. RPTAT: AA IMPRESSION: No sonographic evidence for deep venous thrombosis. .Malcolm Hartley MD, MD Date Time Electronically viewed and signed by .Malcolm Hartley MD, MD on 06/21/2019 15:44 .S/ CC: NELY GARCIA MD [id number] PROCEDURE: US Lower extremity Venous. CLINICAL INDICATION: Bilateral lower extremity edema TECHNIQUE: Multiple sonographic images of the bilateral lower extremity deep venous system was obtained utilizing grayscale, color-flow, compressive sonography and doppler imaging with augmentation. The images were reviewed on a PACS workstation. COMPARISON: None. FINDINGS: There is normal compressibility and flow within the right common femoral, femoral , posterior tibial and popliteal veins. There is normal compressibility and flow within the left common femoral, femoral , posterior tibial and popliteal veins. RPTAT: AA IMPRESSION: No sonographic evidence for deep venous thrombosis. .Malcolm Hartley MD, MD Date Time Electronically viewed and signed by .Malcolm Hartley MD, MD on 06/21/2019 15:44 .S/ CC: NELY GARCIA MD [id number] PEDRITO THRASHER Jun 21, 2019 20:28
[2019-06-21] MEDS ORDERED: BISACODYL (EC) 5 MG TAB PO PRN (20:30)
[2019-06-21] MEDS ORDERED: DOCUSATE SODIUM 100 MG CAP PO PRN (20:30)
[2019-06-21] MEDS ORDERED: ALBUMIN HUMAN 25% 100 ML IV PRN (20:30)
[2019-06-21] MEDS ORDERED: ONDANSETRON 4 MG INJ IV PRN (20:30)
[2019-06-21] MEDS ORDERED: ACETAMINOPHEN 325 MG TAB PO PRN (20:30)
[2019-06-21] MEDS ORDERED: NACL 0.9% 3 ML SYG IV SCH (20:30)
[2019-06-21] MEDS ORDERED: SODIUM CHLORIDE 0.9% 1L BAG IV PRN (20:30)
--- NOTE | 2019-06-21 20:33 | CONS ---
Assessment/Plan Assessment/Plan Assessment/Plan (Daily) 1. acute hyperkalemia with K 6.3 on admission 2. Hypertensive emergency on NTG Drip 3. ESRD on HD TTS schedule 4. Moderate left pleural effusion 2/2 acute fluid overload 5. H/o HTN 6. H/o HL 7. H/o DM Plan: s/p treatment for Hyperkalemia in ED< Stat HD ordered for today with 2 K bath pt need left thoracentesis, ordered by Primary service will plan for another HD tomorrow, pt regular schedule for HD is Fri, , Friday Continue NTG drip now for HTN emergency, will resume his Home meds, labetalol 200mg PO TID, Hydralazine 50mg PO TID, IV hydralazine 10mg Q 4 hr prn SBP more than 150 mm HG, if needed we will add Nifedipine XL 60mg pO dialy , Plan is to titrate NTG drip to off by tomorrow afternoon Thanks for consultation will continue to follow up Consultation Date/Type/Reason Admit Date/Time 06/21/19 Date of Consultation: Jun 21, 2019 Type of Consult NEPHROLOGY Reason for Consultation Acute hyperkalemia, acute fluid overload, ESRD on HD, HTN emergency Requesting Provider: PEDRITO THRASHER Date/Time of Note DATE: 06/21/19 TIME: 20:33 Hx of Present Illness 68-year-old male with a history of hypertension, ESRD on HD and type I diabetes who was brought to the ER for SOB Blood pressure also has been as high as 241/83 requirig NTG drip- Chest x-ray shows large left pleural effusion, Renal has been consulted for acute hyperkalemia, acute fluid overload and HTN emegency. CXR showed moderate pleural effusion, On admisison pt K was 6.3- s/p treatment for hyperkalemia iN ED- BS [id number], BS has been high at home too Pt gets admitted to ICU, Pt was last admitted in March 2019 and was seen by me, pt required left thoracentesis at that time and about 1.5 L was removed, pt also required couple of serial HDs. Subjective hx not possible: pt critical status Constitutional: poor po Eyes: no complaints ENT: no complaints Respiratory: cough, pleuritic pain, shortness of breath Cardiovascular: chest pain Gastrointestinal: no complaints Genitourinary: no complaints Musculoskeletal: swelling (Bilateral leg swelling ) Skin: no complaints Neurologic: no complaints Endocrine: no complaints Lymphatic: no complaints Psychological: no complaints Immunologic: no complaints Past Medical History Medical History: diabetes, high cholesterol, hypertension, other (ESRD on H D) Home Meds Reported Medications Furosemide* (Furosemide*) 80 Mg Tablet, 80 MG PO QAM, #30 TAB 06/21/19 Hydralazine Hcl* (Hydralazine Hcl*) 50 Mg Tab, 50 MG PO TID PRN for ELEVATED BLOOD PRESSURE, #90 TAB 06/21/19 Labetalol Hcl* (Labetalol Hcl*) 200 Mg Tablet, 200 MG PO TID, TAB 06/21/19 Insulin Glargine* (Lantus*) 100 Unit/Ml Soln, 10 UNIT SC QHS, #1 VIAL 06/21/19 Insulin Lispro (Humalog Kwikpen) 200 Unit/1 Ml Insuln.pen, 4 UNIT SQ QAM, EA 06/21/19 Calcium Acetate* (Calcium Acetate*) 667 Mg Capsule, 1334 MG PO WITH MEALS, #60 CAP 06/21/19 Discontinued Reported Medications Pantoprazole* (Pantoprazole*) 40 Mg Tablet.dr, 40 MG PO AC BREAKFAST DINNER, TAB 08/03/17 Calcium Acetate* (Calcium Acetate*) 667 Mg Capsule, 1334 MG PO WITH MEALS, #60 CAP 08/03/17 Discontinued Scripts Hydrocodone Bit-Acetaminophen (Hydrocodone Bit-APAP) 5-325MG Tablet, 1 TAB PO Q4H PRN for MODERATE PAIN LEVEL 4-6, #24 TAB Prov:PAUL GUILLORY MD 04/14/19 Levofloxacin* (Levofloxacin*) 750 Mg Tablet, 750 MG PO Q48H, #4 TAB Prov:PAUL GUILLORY MD 04/14/19 Lactobacillus Rhamnosus* (Culturelle*) 1 Each Cap.sprink, 1 CAP PO BID for 7 Days, CAP Prov:ROXANNA CHAVEZ 08/06/17 Lisinopril* (Lisinopril*) 10 Mg Tablet, 10 MG PO DAILY, #30 TAB Prov:ROXANNA CHAVEZ 08/06/17 Nifedipine (Procardia Xl) 30 Mg Tab.er.24, 30 MG PO BID for 30 Days, TAB Prov:ROXANNA CHAVEZ 08/06/17 Linagliptin (TRADJENTA) 5 Mg Tablet, 5 MG PO DAILY for 30 Days, TAB Prov:ROXANNA CHAVEZ 08/06/17 Insulin Glargine* (Lantus*) 100 Unit/Ml Soln, 8 UNIT SC BID@08,20 for 30 Days Prov:ROXANNA CHAVEZ 08/06/17 Insulin Aspart* (Novolog Insulin Pen*) 100 Unit/Ml Soln, 3 UNIT SC WITH MEALS for 30 Days Prov:ROXANNA CHAVEZ 08/06/17 Terbinafine* (Lamisil*) 250 Mg Tablet, 250 MG PO BID for 14 Days, TAB Prov:ROXANNA CHAVEZ 08/06/17 Medications Current Medications Dextrose (D50w Syringe) ONCE PRN IV DECREASED GLUCOSE; Start 06/21/19 at 16:00; Stop 06/22/19 at 15:59 Nitroglycerin/ Dextrose 250 ml @ 1.5 mls/hr TITRATE IV Last administered on 06/21/19at 19:18; Admin Dose 1.5 MLS/HR; Start 06/21/19 at 17:00 IV Flush (NS 3 ml) 3 ml PER PROTOCOL IV ; Start 06/21/19 at 20:30; Status UNV Ondansetron HCl (Zofran Inj) 4 mg Q6H PRN IV NAUSEA/VOMITING; Start 06/21/19 at 20:30; Status UNV Acetaminophen (Tylenol Tab) 650 mg Q6H PRN PO .PAIN 1-3 OR TEMP; Start 06/21/19 at 20:30; Status UNV Docusate Sodium (Colace) 100 mg Q12H PRN PO .CONSTIPATION; Start 06/21/19 at 20:30; Status UNV Bisacodyl (Dulcolax) 5 mg DAILY PRN PO .CONSTIPATION; Start 06/21/19 at 20:30; Status UNV Heparin Sodium (Porcine) (Heparin (5000 Units/1ml)) 5,000 unit Q8 SC ; Start 06/21/19 at 22:00; Status UNV Insulin Glargine (Lantus) 10 units QHS SC ; Start 06/21/19 at 21:00; Status UNV Miscellaneous Information 4 unit QAM SQ ; Start 06/22/19 at 09:00; Status UNV Miscellaneous Information (* Miscellaneous Pharmacy Order) Discontinue current oral sulfonylur... ONCE ONCE XX ; Start 06/21/19 at 20:30; Stop 06/21/19 at 20:31; Status UNV Diagnostic Test (Pha) (Accu-Chek) 1 ea XX ; Start 06/22/19 at 02:00; Status UNV Miscellaneous Information (* Miscellaneous Pharmacy Order) HYPOGLYCEMIA PROTOCOL w... ONCE ONCE XX ; Start 06/21/19 at 20:30; Stop 06/21/19 at 20:31; Status UNV Insulin Aspart (Novolog Insulin Pen) NOVOLOG *MILD* ALGORITHM WITH MEALS BEDTIME SC ; Start 06/21/19 at 21:00; Status UNV Miscellaneous Information (* Miscellaneous Pharmacy Order) Discontinue all previ... ONCE ONCE XX ; Start 06/21/19 at 20:30; Stop 06/21/19 at 20:31; Status UNV Allergies: Coded Allergies: No Known Allergy (Unverified , 06/21/19) Past Surgical History Past Surgical Hx: other (Left arm AVF ) Family History Significant Family History: no pertinent family hx Social History Alcohol Use: none Smoking Status: Never smoker Drug Use: none Exam/Review of Systems Exam Vitals Vital Signs Date Temp Pulse Resp B/P (MAP) Pulse Ox O2 O2 Flow FiO2 Time Delivery Rate 06/21/19 66 16 140/64 96 Room Air 20:25 (89) 06/21/19 97.5 18:59 06/21/19 21 16:12 Constitutional: distress Psych: no complaints Eyes: nl conjunctiva Neck: supple, non-tender Respiratory: congested cough, crackles/rales, diminished breath sounds, other (Decresed BS on left side ) Cardiovascular: regular rate and rhythm, nl pulses Gastrointestinal: soft, non-tender Musculoskeletal: joint tenderness, swelling (Bilateral Leg swelling, left arm AVF) Extremities: normal pulses Neurological: MUSICAL THERAPIST II-XII intact, nl mental status, nl speech, nl strength Skin: nl turgor Lymph: nl lymph nodes Results Result Diagram: 06/21/19 1450 06/21/19 1450 Results 24hrs Laboratory Tests Test 06/21/19 14:50 06/21/19 16:13 06/21/19 16:46 White Blood Count 4.0 #L Red Blood Count 3.65 L Hemoglobin 11.2 L Hematocrit 36.4 L Mean Corpuscular Volume 99.7 Mean Corpuscular Hemoglobin 30.7 Mean Corpuscular Hemoglobin Concent 30.8 L Red Cell Distribution Width 15.3 H Platelet Count 106 L Mean Platelet Volume 12.4 H Immature Granulocytes % 0.500 H Neutrophils % 73.1 Lymphocytes % 14.1 L Monocytes % 8.8 Eosinophils % 2.0 Basophils % 1.5 Nucleated Red Blood Cells % 0.0 Immature Granulocytes # 0.020 Neutrophils # 2.9 Lymphocytes # 0.6 L Monocytes # 0.4 Eosinophils # 0.1 Basophils # 0.1 Nucleated Red Blood Cells # 0.0 Prothrombin Time 13.6 Prothrombin Time Ratio 1.1 INR International Normalized Ratio 1.03 Activated Partial Thromboplast Time 30.3 Sodium Level 138 Potassium Level 6.3 *H Chloride Level 100 Carbon Dioxide Level 28 Anion Gap 10 Blood Urea Nitrogen 56 H Creatinine 6.76 H Est Glomerular Filtrat Rate mL/min 8 L Glucose Level 407 *H Calcium Level 8.4 Bedside Glucose 335 H 316 H Medications Medication Current Medications Dextrose (D50w Syringe) ONCE PRN IV DECREASED GLUCOSE; Start 06/21/19 at 16:00; Stop 06/22/19 at 15:59 Nitroglycerin/ Dextrose 250 ml @ 1.5 mls/hr TITRATE IV Last administered on 06/21/19at 19:18; Admin Dose 1.5 MLS/HR; Start 06/21/19 at 17:00 IV Flush (NS 3 ml) 3 ml PER PROTOCOL IV ; Start 06/21/19 at 20:30; Status UNV Ondansetron HCl (Zofran Inj) 4 mg Q6H PRN IV NAUSEA/VOMITING; Start 06/21/19 at 20:30; Status UNV Acetaminophen (Tylenol Tab) 650 mg Q6H PRN PO .PAIN 1-3 OR TEMP; Start 06/21/19 at 20:30; Status UNV Docusate Sodium (Colace) 100 mg Q12H PRN PO .CONSTIPATION; Start 06/21/19 at 20:30; Status UNV Bisacodyl (Dulcolax) 5 mg DAILY PRN PO .CONSTIPATION; Start 06/21/19 at 20:30; Status UNV Heparin Sodium (Porcine) (Heparin (5000 Units/1ml)) 5,000 unit Q8 SC ; Start 06/21/19 at 22:00; Status UNV Insulin Glargine (Lantus) 10 units QHS SC ; Start 06/21/19 at 21:00; Status UNV Miscellaneous Information 4 unit QAM SQ ; Start 06/22/19 at 09:00; Status UNV Miscellaneous Information (* Miscellaneous Pharmacy Order) Discontinue current oral sulfonylur... ONCE ONCE XX ; Start 06/21/19 at 20:30; Stop 06/21/19 at 20:31; Status UNV Diagnostic Test (Pha) (Accu-Chek) 1 XX ; Start 06/22/19 at 02:00; Status UNV Miscellaneous Information (* Miscellaneous Pharmacy Order) HYPOGLYCEMIA PROTOCOL w... ONCE ONCE XX ; Start 06/21/19 at 20:30; Stop 06/21/19 at 20:31; Status UNV Insulin Aspart (Novolog Insulin Pen) NOVOLOG *MILD* ALGORITHM WITH MEALS BEDTIME SC ; Start 06/21/19 at 21:00; Status UNV Miscellaneous Information (* Miscellaneous Pharmacy Order) Discontinue all previ... ONCE ONCE XX ; Start 06/21/19 at 20:30; Stop 06/21/19 at 20:31; Status UNV LILIAN HALL MD Jun 21, 2019 20:33
[2019-06-21] MEDS ORDERED: PERMETHRIN 5% 60 GM CR TOP ONE (22:00)
[2019-06-21] MEDS: HEPARIN 5,000 UNIT/1 ML VIAL SC SCH (22:00)
[2019-06-21] MEDS: INSULIN ASPART [NOVOLOG] 3 ML PEN SC SCH (22:27)
[2019-06-21] MEDS: INSULIN GLARGINE [LANTus] (100 UNITS/ML) SYG SC SCH (22:28)
[2019-06-22] VITALS (84 sets, daily range): BP systolic 107–188; BP diastolic 48–91; PULSE 58–70; RESP 8–35
[2019-06-22] MEDS ORDERED: ONDANSETRON 4 MG INJ IV PRN (01:00)
[2019-06-22] MEDS: ACCU-CHEK XX SCH (02:00)
[2019-06-22] MEDS: hydrALAzine 20 MG INJ IV PRN ×3 (03:20→16:46)
[2019-06-22] MEDS: HEPARIN 5,000 UNIT/1 ML VIAL SC SCH ×3 (05:56→22:05)
[2019-06-22] MEDS: NITROGLYCERIN 50 MG/D5W (PMX) 250 ML IV SCH (05:57)
[2019-06-22] MEDS: INSULIN ASPART [NOVOLOG] 3 ML PEN SC SCH ×4 (06:44→20:41)
[2019-06-22] MEDS ORDERED: FUROSEMIDE 40 MG TAB PO SCH (09:00)
[2019-06-22] MEDS ORDERED: INSULIN ASPART [NOVOLOG] 3 ML PEN SC SCH (09:00)
[2019-06-22] MEDS ORDERED: INSULIN LISPRO 4 UNIT SQ SCH (09:00)
--- NOTE | 2019-06-22 09:02 | CONS ---
Assessment/Plan Assessment/Plan Assessment/Plan (Daily) 1. acute hyperkalemia with K 6.3 on admission-now resolved with HD today 2. Hypertensive emergency on NTG Drip -now off NTG drip 3. ESRD on HD TTS schedule 4. Moderate left pleural effusion 2/2 acute fluid overload 5. H/o HTN 6. H/o HL 7. H/o DM Plan: s/p emergent HD yesterday with 2 K bath, today K 4.4 pt need left thoracentesis, ordered by Primary service will plan for another HD today then , pt will be on his regular schedule Fri, , Friday continue labetalol 200mg PO TID, Hydralazine 50mg PO TID, IV hydralazine 10mg Q 4 hr prn SBP more than 150 mm HG, if needed we will add Nifedipine XL 60mg pO dialy , Plan is to titrate NTG drip to off will follow up Consultation Date/Type/Reason Admit Date/Time Jun 21, 2019 at 19:20 Initial Consult Date 06/21/19 Type of Consult NEPHROLOGY Requesting Provider: PEDRITO THRASHER Date/Time of Note DATE: 06/22/19 TIME: 09:02 Exam/Review of Systems Exam Vitals Vital Signs Date Temp Pulse Resp B/P (MAP) Pulse Ox O2 O2 Flow FiO2 Time Delivery Rate 06/22/19 Nasal 2.0 07:19 Cannula 06/22/19 61 11 132/54 100 06:45 (80) 06/22/19 98.0 04:00 06/21/19 21 16:12 Intake and Output 06/21/19 06/21/19 06/22/19 1515:00 23:00 07:00 IntakeIntake Total 135.0 ml 255 ml OutputOutput Total 3500 ml BalanceBalance 135.0 ml -3245 ml Exam Constitutional: awake, alert, no acute distress Respiratory: congested cough, crackles/rales, diminished breath sounds, other (Decresed BS on left side ) Cardiovascular: regular rate and rhythm, nl pulses Gastrointestinal: soft, non-tender Musculoskeletal: joint tenderness, swelling (Bilateral Leg swelling, left arm AVF) Extremities: normal pulses Neurological: COLD MEAT CHEF II-XII intact, nl mental status, nl speech, nl strength Results Result Diagram: 06/22/1943706/22/198 Results 24hrs Laboratory Tests Test 06/21/19 14:50 06/21/19 16:13 06/21/19 16:46 06/21/19 22:05 White Blood Count 4.0 #L Red Blood Count 3.65 L Hemoglobin 11.2 L Hematocrit 36.4 L Mean Corpuscular 99.7 Volume Mean Corpuscular 30.7 Hemoglobin Mean Corpuscular 30.8 L Hemoglobin Concent Red Cell 15.3 H Distribution Width Platelet Count 106 L Mean Platelet Volume 12.4 H Immature 0.500 H Granulocytes % Neutrophils % 73.1 Lymphocytes % 14.1 L Monocytes % 8.8 Eosinophils % 2.0 Basophils % 1.5 Nucleated Red Blood 0.0 Cells % Immature 0.020 Granulocytes # Neutrophils # 2.9 Lymphocytes # 0.6 L Monocytes # 0.4 Eosinophils # 0.1 Basophils # 0.1 Nucleated Red Blood 0.0 Cells # Prothrombin Time 13.6 Prothrombin Time 1.1 Ratio INR International 1.03 Normalized Ratio Activated 30.3 Partial Thromboplast Time Sodium Level 138 138 Potassium Level 6.3 *H 6.1 *H Chloride Level 100 100 Carbon Dioxide Level 28 29 Anion Gap 10 9 Blood Urea Nitrogen 56 H 57 H Creatinine 6.76 H 6.96 H Est Glomerular 8 L 8 L Filtrat Rate mL/min Glucose Level 407 *H 297 #H Calcium Level 8.4 8.3 L Bedside Glucose 335 H 316 H Hepatitis B Surface NEGATIVE Antigen Hepatitis B Surface POSITIVE H Antibody Test 06/21/19 22:22 06/22/19 02:48 06/22/19 04:38 06/22/19 06:34 Bedside Glucose 273 H 110 36 *L White Blood Count 5.2 # Red Blood Count 3.63 L Hemoglobin 11.2 L Hematocrit 35.1 L Mean Corpuscular 96.7 Volume Mean Corpuscular 30.9 Hemoglobin Mean Corpuscular 31.9 L Hemoglobin Concent Red Cell 15.1 H Distribution Width Platelet Count 110 L Mean Platelet Volume 11.9 H Immature 0.600 H Granulocytes % Neutrophils % 76.5 Lymphocytes % 8.9 L Monocytes % 10.4 Eosinophils % 2.3 Basophils % 1.3 Nucleated Red Blood 0.0 Cells % Immature 0.030 Granulocytes # Neutrophils # 4.0 Lymphocytes # 0.5 L Monocytes # 0.5 Eosinophils # 0.1 Basophils # 0.1 Nucleated Red Blood 0.0 Cells # Sodium Level 141 Potassium Level 4.4 Chloride Level 102 Carbon Dioxide Level 31 Anion Gap 8 Blood Urea Nitrogen 32 #H Creatinine 4.18 #H Est Glomerular 14 L Filtrat Rate mL/min Glucose Level 79 # Hemoglobin A1c 8.5 H Calcium Level 8.5 Phosphorus Level 3.1 Magnesium Level 2.0 Total Bilirubin 0.4 Direct Bilirubin 0.00 Indirect Bilirubin 0.4 Aspartate Amino 22 Transf (AST/SGOT) Alanine 18 Aminotransferase (AL T/SGPT) Alkaline Phosphatase 102 Total Protein 6.0 L Albumin 3.6 Globulin 2.40 Albumin/Globulin 1.50 Ratio Triglycerides Level 43 Cholesterol Level 154 LDL Cholesterol, 81 Calculated HDL Cholesterol 64 Cholesterol/HDL 2.4 Ratio Thyroid Stimulating 1.190 Hormone (TSH) Test 06/22/19 06:58 Bedside Glucose 137 Medications Medication Current Medications Dextrose (D50w Syringe) ONCE PRN IV DECREASED GLUCOSE; Start 06/21/19 at 16:00; Stop 06/22/19 at 15:59 Nitroglycerin/ Dextrose 250 ml @ 1.5 mls/hr TITRATE IV Last administered on 06/22/19at 05:57; Admin Dose 1.5 MLS/HR; Start 06/21/19 at 17:00 IV Flush (NS 3 ml) 3 ml PER PROTOCOL IV ; Start 06/21/19 at 20:30 Acetaminophen (Tylenol Tab) 650 mg Q6H PRN PO .PAIN 1-3 OR TEMP; Start 06/21/19 at 20:30 Docusate Sodium (Colace) 100 mg Q12H PRN PO .CONSTIPATION; Start 06/21/19 at 20:30 Bisacodyl (Dulcolax) 5 mg DAILY PRN PO .CONSTIPATION; Start 06/21/19 at 20:30 Heparin Sodium (Porcine) (Heparin (5000 Units/1ml)) 5,000 unit Q8 SC Last administered on 06/22/19at 05:56; Admin Dose 5,000 UNIT; Start 06/21/19 at 22:00 Insulin Glargine (Lantus) 10 units QHS SC Last administered on 06/21/19at 22:28; Admin Dose 10 UNITS; Start 06/21/19 at 21:00 Diagnostic Test (Pha) (Accu-Chek) 1 ea 02 XX ; Start 06/22/19 at 02:00 Insulin Aspart (Novolog Insulin Pen) NOVOLOG *MILD* ALGORITHM WITH MEALS BEDTIME SC Last administered on 06/21/19at 22:27; Admin Dose 4 UNIT; Start 06/21/19 at 21:00 Albumin Human 100 ml @ 100 mls/hr WITH DIALYSIS PRN IV SBP <90 DURING DIALYSIS; Start 06/21/19 at 20:30 Sodium Chloride (NS) -To prime the dialy... DIRECTED FOR HD PRN IV HD; Start 06/21/19 at 20:30 Insulin Aspart (Novolog Insulin Pen) 4 unit QAM SC ; Start 06/22/19 at 09:00 Calcium Acetate (Phoslo) 1,334 mg WITH MEALS PO ; Start 06/22/19 at 07:35 Hydralazine HCl (Apresoline) 50 mg TID PO ; Start 06/21/19 at 22:00 Labetalol HCl (Normodyne) 200 mg TID PO ; Start 06/22/19 at 09:00 Hydralazine HCl (Apresoline) 10 mg Q4H PRN IV SBP more than 150 mm hg Last administered on 06/22/19at 03:20; Admin Dose 10 MG; Start 06/21/19 at 22:00 Ondansetron HCl (Zofran Inj) 4 mg Q4H PRN IV NAUSEA AND/OR VOMITING; Start 06/22/19 at 01:00 Famotidine (Pepcid) 20 mg DAILY PO ; Start 06/22/19 at 09:00 Furosemide (Lasix) 20 mg QAM PO ; Start 06/22/19 at 09:00; Status LILIAN GARAY MD Jun 22, 2019 09:02
[2019-06-22] MEDS: CALCIUM ACETATE 667 MG CAP PO SCH ×3 (09:52→17:17)
[2019-06-22] MEDS: LABETALOL 200 MG TAB PO SCH ×3 (09:55→22:58)
[2019-06-22] MEDS: FUROSEMIDE 20 MG TAB PO SCH (09:56)
[2019-06-22] MEDS: FAMOTIDINE 20 MG TAB PO SCH (10:08)
--- NOTE | 2019-06-22 12:33 | RADRPT ---
Echocardiogram Report Patient Name: ARMANDO PRUITTUGIOPatient ID: [id number] : 1950 (68y 7m)Study Date: 06/22/2019 8:03:18 AM Gender: Macielcession #: [id number] Tech: MT Location: [facility] Ref.Physician: PEDRITO THRASHER Height(Cm): BSA: Weight(Kg): Quality: AdequateOrder Physician: PEDRITO THRASHER Account #: Procedures: Echocardiographic Report: Transthoracic echocardiogram with complete 2D, M-Mode, and doppler examination. Indications: Cardiomegaly, and Pleural Effusion. Measurements: 2D/M Mode Doppler Measurement Value Normal Range Measurement Value Normal Range LVIDd 2D 4.7 [ 4.2 - 5.8 ] cm AV Peak Negrito 1.8 [ 100.0 - 170.0 ] cm/sec LVIDs 2D 2.7 [ 2.5 - 4.0 ] cm AV Peak PG 13.0 [ 2.0 - 9.0 ] mmHg LVPWd 2D 1.3 [ 0.6 - 1.0 ] cm LVOT Peak Negrito 1.2 [ 70.0 - 110.0 ] cm/sec IVSd 2D 1.0 [ 0.6 - 1.0 ] cm LVOT Peak PG 6.0 [ 2.0 - 6.0 ] mmHg AoR Diam 2D 3.2 [ 2.6 - 3.4 ] cm MV E Peak Negrito 0.8 [ 60.0 - 130.0 ] cm/sec EDV 2D 102.0 [ 62.0 - 150.0 ] ml MV A Peak Negrito 1.0 [ 100.0 - 120.0 ] cm/sec ESV 2D 26.0 [ 21.0 - 61.0 ] ml MV E/A 0.8 [ 0.8 - 1.5 ] ratio EF 2D 74.5 [ 52.0 - 72.0 ] percent MV Decel Time 201 [ 104 - 258 ] msec LA Dimen 2D 3.4 [ 3.0 - 4.0 ] cm Lat E` Negrito 0.1 [ 10.0 - 15.0 ] cm/sec Lateral E/E` 9.9 [ 1.0 - 2.0 ] ratio Med E` Negrito 0.1 cm/sec MV E/A 0.8 [ 0.8 - 1.5 ] ratio TR Peak Negrito 2.4 [ 100.0 - 280.0 ] cm/sec TR Peak PG 23.0 mmHg RVSP 33.0 [ 10.0 - 36.0 ] mmHg RA Pressure 10.0 mmHg Findings: Left Ventricle: Normal left ventricular systolic function. Normal left ventricular cavity size. Moderate concentric left ventricular hypertrophy. Ejection fraction is visually estimated at 70 %. Tissue Doppler/Mitral Doppler indices are consistent with impaired relaxation (Stage I diastolic dysfunction). Right Ventricle: Normal right ventricular size. Normal right ventricular systolic function. Left Atrium: The left atrium is normal in size. Right Atrium: The right atrium is normal in size. Mitral Valve: Mitral valve leaflets appear mildly thickened. Mild mitral annular calcification. Trace mitral regurgitation. Aortic Valve: No significant aortic stenosis or insufficiency. Aortic cusps appear mildly calcified. Tricuspid Valve: Normal appearance of the tricuspid valve. The estimated Peak RVSP is 33 mmHg. There is mild tricuspid regurgitation. Pulmonic Valve: Pulmonic valve not well visualized. Pericardium: Trivial pericardial effusion. Pleural effusion seen. Aorta: Normal aortic root. IVC: Normal size and normal respiratory collapse consistent with normal right atrial pressure. Conclusions: Normal left ventricular systolic function. Normal left ventricular cavity size. Moderate concentric left ventricular hypertrophy. Ejection fraction is visually estimated at 70 %. Tissue Doppler/Mitral Doppler indices are consistent with impaired relaxation (Stage I diastolic dysfunction). Mitral valve leaflets appear mildly thickened. Mild mitral annular calcification. Trace mitral regurgitation. No significant aortic stenosis or insufficiency. Aortic cusps appear mildly calcified. Normal appearance of the tricuspid valve. The estimated Peak RVSP is 33 mmHg. There is mild tricuspid regurgitation. Trivial pericardial effusion. Pleural effusion seen. Electronically Signed By: Garland Francisco 2019-06-22 12:32:07 PDT
--- NOTE | 2019-06-22 16:39 | PN ---
Date/Time of Note Date/Time of Note DATE: 06/22/19 TIME: 16:31 Assessment/Plan VTE Prophylaxis Risk score (from Nsg)>0 risk: 3 SCD applied (from Nsg): No SCD contraindicated: low risk/ambulating Pharmacological prophylaxis: NA/contraindicated Pharm contraindication: low risk/ambulating Lines/Catheters IV Catheter Type (from [facility]): Peripheral IV Assessment/Plan Assessment/Plan 68 yo man with history of ESRD admitted hypertensive, hyperkalemic, in respiratory distress. #Hypertension: - Patient presented with blood pressures in the 200 systolic. - Likely secondary to volume overload from end-stage renal disease/underlying hypertension. - Now after dialysis nitro gtt has been titrated off, patient doing well. # end-stage renal disease: Patient is on HD Friday. Dialysis per nephrology # left-sided pleural effusion: Pending ultrasound thoracentesis and order pleural fluid analysis including Gram stain, albumin, lactate dehydrogenase, protein, cell count # diabetes mellitus: We will check hemoglobin A 1C, resume home insulin, insulin sliding scale. # normocytic anemia: Likely secondary to underlying end-stage renal disease. Nephrology on board. # left upper extremity and bilateral lower extremity edema: This appears to be going on for the last 2 months according to the patient. Ultrasound Dopplers of the left upper extremity and bilateral lower extremities were negative for DVT. # DVT GI prophylaxis: Heparin subcu, H2 casie Greater than 35 minutes of critical care time was spent on the care management this patient. Result Diagram: 06/22/19 0438 06/22/19 0438 Subjective 24 Hr Interval Summary Free Text/Dictation No acute overnight events. Patient got dialysis last night. Breathing comfortably on room air. Exam/Review of Systems Exam Vitals Vital Signs Date Temp Pulse Resp B/P (MAP) Pulse Ox O2 O2 Flow FiO2 Time Delivery Rate 06/22/19 67 9 148/84 97 Room Air 15:00 (105) 06/22/19 96.8 12:00 06/22/19 2.0 07:19 06/21/19 21 16:12 Intake and Output 06/21/19 06/21/19 06/22/19 1515:00 23:00 07:00 IntakeIntake Total 135.0 ml 315 ml OutputOutput Total 3500 ml BalanceBalance 135.0 ml -3185 ml Exam General: Patient is a pleasant man currently in bed in no acute distress. HEENT: Atraumatic, normocephalic. The pupils are equal, round and reactive. Extraocular motor are intact Neck: Supple with full range of motion. No rigidity or meningismus Chest: Nontender Lungs: Diminished breath sounds over the left lung base, crackles rales bilaterally Heart: Normal S1-S2, Regular rhythm and rate. No murmur, S3, or S4 Abdomen: Soft , nontender, nondistended , bowel sounds are present. No guarding no rebound tenderness , No masses or organomegaly. No costovertebral temporal angle mass Extremities: Left upper extremity AV fistula, left upper extremity 2+ pitting edema, bilateral lower extremity 2+ pitting edema Results Results 24hrs Laboratory Tests Test 06/21/19 16:46 06/21/19 22:05 06/21/19 22:22 06/22/19 02:48 Bedside Glucose 316 H 273 H 110 Sodium Level 138 Potassium Level 6.1 *H Chloride Level 100 Carbon Dioxide Level 29 Anion Gap 9 Blood Urea Nitrogen 57 H Creatinine 6.96 H Est Glomerular 8 L Filtrat Rate mL/min Glucose Level 297 #H Calcium Level 8.3 L Hepatitis B Surface NEGATIVE Antigen Hepatitis B Surface POSITIVE H Antibody Test 06/22/19 04:38 06/22/19 06:34 06/22/19 06:58 06/22/19 08:53 White Blood Count 5.2 # Red Blood Count 3.63 L Hemoglobin 11.2 L Hematocrit 35.1 L Mean Corpuscular 96.7 Volume Mean Corpuscular 30.9 Hemoglobin Mean Corpuscular 31.9 L Hemoglobin Concent Red Cell 15.1 H Distribution Width Platelet Count 110 L Mean Platelet Volume 11.9 H Immature 0.600 H Granulocytes % Neutrophils % 76.5 Lymphocytes % 8.9 L Monocytes % 10.4 Eosinophils % 2.3 Basophils % 1.3 Nucleated Red Blood 0.0 Cells % Immature 0.030 Granulocytes # Neutrophils # 4.0 Lymphocytes # 0.5 L Monocytes # 0.5 Eosinophils # 0.1 Basophils # 0.1 Nucleated Red Blood 0.0 Cells # Sodium Level 141 Potassium Level 4.4 Chloride Level 102 Carbon Dioxide Level 31 Anion Gap 8 Blood Urea Nitrogen 32 #H Creatinine 4.18 #H Est Glomerular 14 L Filtrat Rate mL/min Glucose Level 79 # Hemoglobin A1c 8.5 H Calcium Level 8.5 Phosphorus Level 3.1 Magnesium Level 2.0 Total Bilirubin 0.4 Direct Bilirubin 0.00 Indirect Bilirubin 0.4 Aspartate Amino 22 Transf (AST/SGOT) Alanine 18 Aminotransferase (AL T/SGPT) Alkaline Phosphatase 102 Total Protein 6.0 L Albumin 3.6 Globulin 2.40 Albumin/Globulin 1.50 Ratio Triglycerides Level 43 Cholesterol Level 154 LDL Cholesterol, 81 Calculated HDL Cholesterol 64 Cholesterol/HDL 2.4 Ratio Thyroid Stimulating 1.190 Hormone (TSH) Bedside Glucose 36 *L 137 70 Test 06/22/19 11:45 Bedside Glucose 119 Medications Medication Current Medications IV Flush (NS 3 ml) 3 ml PER PROTOCOL IV ; Start 06/21/19 at 20:30 Acetaminophen (Tylenol Tab) 650 mg Q6H PRN PO .PAIN 1-3 OR TEMP; Start 06/21/19 at 20:30 Docusate Sodium (Colace) 100 mg Q12H PRN PO .CONSTIPATION; Start 06/21/19 at 20:30 Bisacodyl (Dulcolax) 5 mg DAILY PRN PO .CONSTIPATION; Start 06/21/19 at 20:30 Heparin Sodium (Porcine) (Heparin (5000 Units/1ml)) 5,000 unit Q8 SC Last administered on 06/22/19at 05:56; Admin Dose 5,000 UNIT; Start 06/21/19 at 22:00 Insulin Glargine (Lantus) 10 units QHS SC Last administered on 06/21/19at 22:28; Admin Dose 10 UNITS; Start 06/21/19 at 21:00 Diagnostic Test (Pha) (Accu-Chek) 1 ea 02 XX ; Start 06/22/19 at 02:00 Insulin Aspart (Novolog Insulin Pen) NOVOLOG *MILD* ALGORITHM WITH MEALS BEDTIME SC Last administered on 06/21/19at 22:27; Admin Dose 4 UNIT; Start 06/21/19 at 21:00 Albumin Human 100 ml @ 100 mls/hr WITH DIALYSIS PRN IV SBP <90 DURING DIALYSI S; Start 06/21/19 at 20:30 Sodium Chloride (NS) -To prime the dialy... DIRECTED FOR HD PRN IV HD; Start 06/21/19 at 20:30 Calcium Acetate (Phoslo) 1,334 mg WITH MEALS PO Last administered on 06/22/19 12:38; Admin Dose 1,334 MG; Start 06/22/19 at 07:35 Hydralazine HCl (Apresoline) 50 mg TID PO Last administered on 06/22/19 12:39; Admin Dose 50 MG; Start 06/21/19 at 22:00 Labetalol HCl (Normodyne) 200 mg TID PO Last administered on 06/22/19 12:39; Admin Dose 200 MG; Start 06/22/19 at 09:00 Hydralazine HCl (Apresoline) 10 mg Q4H PRN IV SBP more than 150 mm hg Last administered on 06/22/19 11:41; Admin Dose 10 MG; Start 06/21/19 at 22:00 Ondansetron HCl (Zofran Inj) 4 mg Q4H PRN IV NAUSEA AND/OR VOMITING; Start 06/22/19 at 01:00 Famotidine (Pepcid) 20 mg DAILY PO Last administered on 06/22/19 10:08; Admin Dose 20 MG; Start 06/22/19 at 09:00 Furosemide (Lasix) 20 mg QAM PO Last administered on 06/22/19 09:56; Admin Dose 20 MG; Start 06/22/19 at 09:00 PAUL GUILLORY MD Jun 22, 2019 16:38
[2019-06-22] MEDS: INSULIN GLARGINE [LANTus] (100 UNITS/ML) SYG SC SCH (20:41)
[2019-06-23] VITALS (7 sets, daily range): BP systolic 132–200; BP diastolic 63–103; PULSE 62–78; RESP 18
[2019-06-23] MEDS: ACCU-CHEK XX SCH (02:54)
[2019-06-23] MEDS: HEPARIN 5,000 UNIT/1 ML VIAL SC SCH ×3 (06:18→22:28)
[2019-06-23] MEDS: INSULIN ASPART [NOVOLOG] 3 ML PEN SC SCH ×4 (07:54→20:42)
[2019-06-23] MEDS: FUROSEMIDE 20 MG TAB PO SCH (09:30)
[2019-06-23] MEDS ORDERED: GLUCOSE GEL 15 GRAM TUBE BUCCAL PRN (09:30)
[2019-06-23] MEDS ORDERED: DEXTROSE 50% 50 ML SYRINGE IV PRN ×2 (09:30)
[2019-06-23] MEDS ORDERED: GLUCOSE GEL 15 GRAM TUBE PO PRN ×2 (09:30)
[2019-06-23] MEDS: FAMOTIDINE 20 MG TAB PO SCH (09:30)
[2019-06-23] MEDS ORDERED: GLUCAGON 1 MG INJ IM PRN (09:30)
[2019-06-23] MEDS ORDERED: DEXTROSE 50% 50 ML SYRINGE IV ONE (09:30)
[2019-06-23] MEDS: CALCIUM ACETATE 667 MG CAP PO SCH ×3 (09:31→17:53)
[2019-06-23] MEDS: LABETALOL 200 MG TAB PO SCH ×3 (09:32→20:04)
--- NOTE | 2019-06-23 10:34 | PN ---
Date/Time of Note Date/Time of Note DATE: 06/23/19 TIME: 10:31 Assessment/Plan VTE Prophylaxis Risk score (from Nsg)>0 risk: 2 SCD applied (from Nsg): No SCD contraindicated: low risk/ambulating Pharmacological prophylaxis: heparin Lines/Catheters IV Catheter Type (from Nrsg): Peripheral IV Assessment/Plan Assessment/Plan 68 yo man with history of ESRD admitted hypertensive, hyperkalemic, in respiratory distress. #Hypertension: - Patient presented with blood pressures in the 200 systolic. - Likely secondary to volume overload from end-stage renal disease/underlying hypertension. - Now after dialysis nitro gtt has been titrated off, patient doing well. # end-stage renal disease: Patient is on HD Friday. Dialysis per nephrology # left-sided pleural effusion: Pending ultrasound thoracentesis and order pleural fluid analysis including Gram stain, albumin, lactate dehydrogenase, protein, cell count # diabetes mellitus: We will check hemoglobin A 1C, resume home insulin, insulin sliding scale. # normocytic anemia: Likely secondary to underlying end-stage renal disease. Nephrology on board. # left upper extremity and bilateral lower extremity edema: This appears to be going on for the last 2 months according to the patient. Ultrasound Dopplers of the left upper extremity and bilateral lower extremities were negative for DVT. # DVT GI prophylaxis: Heparin subcu, H2 casie Result Diagram: 06/23/19 0606/23/19 06 Subjective 24 Hr Interval Summary Free Text/Dictation Patient doing well today. Breathing comfortably on room air. Going for US-guided thoracentesis Exam/Review of Systems Exam Vitals Vital Signs Date Temp Pulse Resp B/P (MAP) Pulse Ox O2 O2 Flow FiO2 Time Delivery Rate 06/23/19 98.1 67 18 192/90 94 Room Air 07:18 (124) 06/22/19 2.0 07:19 06/21/19 21 16:12 Intake and Output 06/22/19 06/22/19 06/23/19 1515:00 23:00 07:00 IntakeIntake Total 811 ml 300 ml OutputOutput Total 3900 ml BalanceBalance 811 ml -3600 ml Exam General: Patient is a pleasant man currently in bed in no acute distress. HEENT: Atraumatic, normocephalic. The pupils are equal, round and reactive. Extraocular motor are intact Neck: Supple with full range of motion. No rigidity or meningismus Chest: Nontender Lungs: Diminished breath sounds over the left lung base, crackles rales bilaterally Heart: Normal S1-S2, Regular rhythm and rate. No murmur, S3, or S4 Abdomen: Soft , nontender, nondistended , bowel sounds are present. No guarding no rebound tenderness , No masses or organomegaly. No costovertebral temporal angle mass Extremities: Left upper extremity AV fistula, left forearm mild edema improved from yesterday, bilateral lower extremity trace edema Results Results 24hrs Laboratory Tests Test 06/22/19 11:45 06/22/19 17:20 06/22/19 20:25 06/23/19 02:00 Bedside Glucose 119 197 187 111 Test 06/23/19 06:05 06/23/19 07:52 06/23/19 08:39 06/23/19 09:28 White Blood Count 4.3 L Red Blood Count 3.96 L Hemoglobin 12.3 L Hematocrit 39.3 L Mean Corpuscular 99.2 Volume Mean Corpuscular 31.1 Hemoglobin Mean Corpuscular 31.3 L Hemoglobin Concent Red Cell 15.4 H Distribution Width Platelet Count 130 L Mean Platelet Volume 11.8 H Immature 0.200 Granulocytes % Neutrophils % 72.5 Lymphocytes % 13.2 L Monocytes % 11.1 H Eosinophils % 1.6 Basophils % 1.4 Nucleated Red Blood 0.0 Cells % Immature 0.010 Granulocytes # Neutrophils # 3.1 Lymphocytes # 0.6 L Monocytes # 0.5 Eosinophils # 0.1 Basophils # 0.1 Nucleated Red Blood 0.0 Cells # Sodium Level 141 Potassium Level 4.8 Chloride Level 100 Carbon Dioxide Level 32 H Anion Gap 9 Blood Urea Nitrogen 25 H Creatinine 3.72 H Est Glomerular 16 L Filtrat Rate mL/min Glucose Level 41 #*L Calcium Level 8.6 Phosphorus Level 3.7 Total Bilirubin 0.3 Direct Bilirubin 0.00 Indirect Bilirubin 0.3 Aspartate Amino 23 Transf (AST/SGOT) Alanine 18 Aminotransferase (AL T/SGPT) Alkaline Phosphatase 97 Total Protein 5.8 L Albumin 3.4 Globulin 2.40 Albumin/Globulin 1.41 Ratio Bedside Glucose 35 *L 58 L 162 Medications Medication Current Medications IV Flush (NS 3 ml) 3 ml PER PROTOCOL IV ; Start 06/21/19 at 20:30 Acetaminophen (Tylenol Tab) 650 mg Q6H PRN PO .PAIN 1-3 OR TEMP; Start 06/21/19 at 20:30 Docusate Sodium (Colace) 100 mg Q12H PRN PO .CONSTIPATION; Start 06/21/19 at 20:30 Bisacodyl (Dulcolax) 5 mg DAILY PRN PO .CONSTIPATION; Start 06/21/19 at 20:30 Heparin Sodium (Porcine) (Heparin (5000 Units/1ml)) 5,000 unit Q8 SC Last ad ministered on 06/23/19 06:18; Admin Dose 5,000 UNIT; Start 06/21/19 at 22:00 Diagnostic Test (Pha) (Accu-Chek) 1 ea 02 XX Last administered on 06/23/19 02:54; Admin Dose 1 EA; Start 06/22/19 at 02:00 Insulin Aspart (Novolog Insulin Pen) NOVOLOG *MILD* ALGORITHM WITH MEALS BEDTIME SC Last administered on 06/22/19 20:41; Admin Dose 1 UNIT; Start 06/21/19 at 21:00 Albumin Human 100 ml @ 100 mls/hr WITH DIALYSIS PRN IV SBP <90 DURING DIALYSIS; Start 06/21/19 at 20:30 Sodium Chloride (NS) -To prime the dialy... DIRECTED FOR HD PRN IV HD; Start 06/21/19 at 20:30 Calcium Acetate (Phoslo) 1,334 mg WITH MEALS PO Last administered on 06/23/19 09:31; Admin Dose 1,334 MG; Start 06/22/19 at 07:35 Hydralazine HCl (Apresoline) 50 mg TID PO Last administered on 06/23/19 09:32; Admin Dose 50 MG; Start 06/21/19 at 22:00 Labetalol HCl (Normodyne) 200 mg TID PO Last administered on 06/23/19 09:32; Admin Dose 200 MG; Start 06/22/19 at 09:00 Hydralazine HCl (Apresoline) 10 mg Q4H PRN IV SBP more than 150 mm hg Last administered on 06/22/19at 16:46; Admin Dose 10 MG; Start 06/21/19 at 22:00 Ondansetron HCl (Zofran Inj) 4 mg Q4H PRN IV NAUSEA AND/OR VOMITING; Start 06/22/19 at 01:00 Famotidine (Pepcid) 20 mg DAILY PO Last administered on 06/23/19at 09:30; Admin Dose 20 MG; Start 06/22/19 at 09:00 Furosemide (Lasix) 20 mg QAM PO Last administered on 06/23/19at 09:30; Admin Dose 20 MG; Start 06/22/19 at 09:00 Miscellaneous Information 1 ea NOTE XX ; Start 06/23/19 at 09:30 Glucose (Glutose) 15 gm Q15M PRN PO DECREASED GLUCOSE; Start 06/23/19 at 09:30 Glucose (Glutose) 22.5 gm Q15M PRN PO DECREASED GLUCOSE; Start 06/23/19 at 09:30 Dextrose (D50w Syringe) 25 ml Q15M PRN IV DECREASED GLUCOSE; Start 06/23/19 at 09:30 Dextrose (D50w Syringe) 50 ml Q15M PRN IV DECREASED GLUCOSE; Start 06/23/19 at 09:30 Glucagon (Glucagen) 1 mg Q15M PRN IM DECREASED GLUCOSE; Start 06/23/19 at 09:30 Glucose (Glutose) 15 gm Q15M PRN BUCCAL DECREASED GLUCOSE; Start 06/23/19 at 09:30 PAUL GUILLORY MD Jun 23, 2019 10:34
[2019-06-23] MEDS ORDERED: LIDOCAINE 1% (MPF) 5 ML VIAL ONE (11:13)
[2019-06-23] MEDS: hydrALAzine 20 MG INJ IV PRN (12:03)
--- NOTE | 2019-06-23 13:15 | CONS ---
Assessment/Plan Assessment/Plan Assessment/Plan (Daily) 1. acute hyperkalemia with K 6.3 on admission-now resolved with HD today 2. Hypertensive emergency on NTG Drip -now off NTG drip 3. ESRD on HD TTS schedule 4. Moderate left pleural effusion 2/2 acute fluid overload 5. H/o HTN 6. H/o HL 7. H/o DM Plan: s/p Left thoracentesis 06/23/19- 1 liter Fluid removed, BP stable s/p HD today 3.5 L removed - another HD ordered for then pt will be on his regular schedule Fri, , Friday continue labetalol 200mg PO TID, Hydralazine 50mg PO TID, IV hydralazine 10mg Q 4 hr prn SBP more than 150 mm HG, off NTG drip, now on tele floor will follow up Consultation Date/Type/Reason Admit Date/Time Jun 21, 2019 at 19:20 Initial Consult Date 06/21/19 Type of Consult NEPHROLOGY Requesting Provider: PEDRITO THRASHER Date/Time of Note DATE: 06/23/19 TIME: 13:14 Exam/Review of Systems Exam Vitals Vital Signs Date Temp Pulse Resp B/P (MAP) Pulse Ox O2 O2 Flow FiO2 Time Delivery Rate 06/23/19 97.5 65 18 167/74 96 Room Air 11:51 (105) 06/22/19 2.0 07:19 06/21/19 21 16:12 Intake and Output 06/22/19 06/22/19 06/23/19 1515:00 23:00 07:00 IntakeIntake Total 811 ml 300 ml OutputOutput Total 3900 ml BalanceBalance 811 ml -3600 ml Exam Constitutional: awake, alert, no acute distress Respiratory: congested cough, crackles/rales, diminished breath sounds, other (Decresed BS on left side ) Cardiovascular: regular rate and rhythm, nl pulses Gastrointestinal: soft, non-tender Musculoskeletal: joint tenderness, swelling (Bilateral Leg swelling, left arm AVF) Extremities: normal pulses Neurological: BRISKET PULLER II-XII intact, nl mental status, nl speech, nl strength Results Result Diagram: 06/23/19 0605 06/23/19 0605 Results 24hrs Laboratory Tests Test 06/22/19 17:20 06/22/19 20:25 06/23/19 02:00 06/23/19 06:05 Bedside Glucose 197 187 111 White Blood Count 4.3 L Red Blood Count 3.96 L Hemoglobin 12.3 L Hematocrit 39.3 L Mean Corpuscular 99.2 Volume Mean Corpuscular 31.1 Hemoglobin Mean Corpuscular 31.3 L Hemoglobin Concent Red Cell 15.4 H Distribution Width Platelet Count 130 L Mean Platelet 11.8 H Volume Immature 0.200 Granulocytes % Neutrophils % 72.5 Lymphocytes % 13.2 L Monocytes % 11.1 H Eosinophils % 1.6 Basophils % 1.4 Nucleated Red 0.0 Blood Cells % Immature 0.010 Granulocytes # Neutrophils # 3.1 Lymphocytes # 0.6 L Monocytes # 0.5 Eosinophils # 0.1 Basophils # 0.1 Nucleated Red 0.0 Blood Cells # Sodium Level 141 Potassium Level 4.8 Chloride Level 100 Carbon Dioxide 32 H Level Anion Gap 9 Blood Urea 25 H Nitrogen Creatinine 3.72 H Est Glomerular 16 L Filtrat Rate mL/min Glucose Level 41 #*L Calcium Level 8.6 Phosphorus Level 3.7 Total Bilirubin 0.3 Direct Bilirubin 0.00 Indirect Bilirubin 0.3 Aspartate Amino 23 Transf (AST/SGOT) Alanine 18 Aminotransferase ( ALT/SGPT) Alkaline 97 Phosphatase Total Protein 5.8 L Albumin 3.4 Globulin 2.40 Albumin/Globulin 1.41 Ratio Test 06/23/19 07:52 06/23/19 08:39 06/23/19 09:28 06/23/19 11:00 Bedside Glucose 35 *L 58 L 162 Body Fluid Type PLEURAL FLUID Body Fluid Total 3.0 Protein Body Fluid 257 Lactate Dehydrogen ase Test 06/23/19 12:01 Bedside Glucose 167 Medications Medication Current Medications IV Flush (NS 3 ml) 3 ml PER PROTOCOL IV ; Start 06/21/19 at 20:30 Acetaminophen (Tylenol Tab) 650 mg Q6H PRN PO .PAIN 1-3 OR TEMP; Start 06/21/19 at 20:30 Docusate Sodium (Colace) 100 mg Q12H PRN PO .CONSTIPATION; Start 06/21/19 at 20:30 Bisacodyl (Dulcolax) 5 mg DAILY PRN PO .CONSTIPATION; Start 06/21/19 at 20:30 Heparin Sodium (Porcine) (Heparin (5000 Units/1ml)) 5,000 unit Q8 SC Last administered on 06/23/19 06:18; Admin Dose 5,000 UNIT; Start 06/21/19 at 22:00 Diagnostic Test (Pha) (Accu-Chek) 1 ea 02 XX Last administered on 06/23/19 02:54; Admin Dose 1 EA; Start 06/22/19 at 02:00 Insulin Aspart (Novolog Insulin Pen) NOVOLOG *MILD* ALGORITHM WITH MEALS BEDTIME SC Last administered on 06/23/19 12:41; Admin Dose 1 UNIT; Start 06/21/19 at 21:00 Albumin Human 100 ml @ 100 mls/hr WITH DIALYSIS PRN IV SBP <90 DURING DIALYSIS; Start 06/21/19 at 20:30 Sodium Chloride (NS) -To prime the dialy... DIRECTED FOR HD PRN IV HD; Start 06/21/19 at 20:30 Calcium Acetate (Phoslo) 1,334 mg WITH MEALS PO Last administered on 06/23/19 12:34; Admin Dose 1,334 MG; Start 06/22/19 at 07:35 Hydralazine HCl (Apresoline) 50 mg TID PO Last administered on 06/23/19 09:32; Admin Dose 50 MG; Start 06/21/19 at 22:00 Labetalol HCl (Normodyne) 200 mg TID PO Last administered on 06/23/19 09:32; Admin Dose 200 MG; Start 06/22/19 at 09:00 Hydralazine HCl (Apresoline) 10 mg Q4H PRN IV SBP more than 150 mm hg Last administered on 06/23/19 12:03; Admin Dose 10 MG; Start 06/21/19 at 22:00 Ondansetron HCl (Zofran Inj) 4 mg Q4H PRN IV NAUSEA AND/OR VOMITING; Start 06/22/19 at 01:00 Famotidine (Pepcid) 20 mg DAILY PO Last administered on 06/23/19 09:30; Admin Dose 20 MG; Start 06/22/19 at 09:00 Furosemide (Lasix) 20 mg QAM PO Last administered on 06/23/19 09:30; Admin Dose 20 MG; Start 06/22/19 at 09:00 Miscellaneous Information 1 ea NOTE XX ; Start 06/23/19 at 09:30 Glucose (Glutose) 15 gm Q15M PRN PO DECREASED GLUCOSE; Start 06/23/19 at 09:30 Glucose (Glutose) 22.5 gm Q15M PRN PO DECREASED GLUCOSE; Start 06/23/19 at 09:30 Dextrose (D50w Syringe) 25 ml Q15M PRN IV DECREASED GLUCOSE; Start 06/23/19 at 09:30 Dextrose (D50w Syringe) 50 ml Q15M PRN IV DECREASED GLUCOSE; Start 06/23/19 at 09:30 Glucagon (Glucagen) 1 mg Q15M PRN IM DECREASED GLUCOSE; Start 06/23/19 at 09:30 Glucose (Glutose) 15 gm Q15M PRN BUCCAL DECREASED GLUCOSE; Start 06/23/19 at 09:30 LILIAN HALL MD Jun 23, 2019 13:14
[2019-06-24] VITALS (18 sets, daily range): BP systolic 105–178; BP diastolic 41–74; PULSE 57–78; RESP 16–18
[2019-06-24] MEDS: ACCU-CHEK XX SCH (02:15)
[2019-06-24] MEDS: hydrALAzine 20 MG INJ IV PRN (04:44)
[2019-06-24] MEDS: HEPARIN 5,000 UNIT/1 ML VIAL SC SCH ×2 (05:45→08:56)
[2019-06-24] MEDS: FUROSEMIDE 20 MG TAB PO SCH (08:27)
[2019-06-24] MEDS: FAMOTIDINE 20 MG TAB PO SCH (08:27)
[2019-06-24] MEDS: CALCIUM ACETATE 667 MG CAP PO SCH ×2 (08:27→13:02)
[2019-06-24] MEDS: INSULIN ASPART [NOVOLOG] 3 ML PEN SC SCH ×2 (08:55→11:58)
[2019-06-24] MEDS: LABETALOL 200 MG TAB PO SCH ×2 (08:56→13:00)
--- NOTE | 2019-06-24 10:45 | PDOCDIS ---
Discharge Instructions DIAGNOSIS Discharge Diagnosis L pleural effusion Pulmonary edema Hyperkalemia CONDITION [id number] Patient Condition: [id number] Good HOME CARE INSTRUCTIONS: [id number] Diet Instructions: [id number] Reduced Sodium ACTIVITY: [id number] Activity Restrictions: [id number] No Restrictions FOLLOW UP/APPOINTMENTS Follow-up Plan 1. Continue to take all medication as prescribed. 2. Continue dialysis as scheduled. 3. See your primary care doctor in 1-2 weeks. PAUL GUILLORY MD Jun 24, 2019 10:45
--- NOTE | 2019-06-24 10:54 | CONS ---
Assessment/Plan Assessment/Plan Assessment/Plan (Daily) 1. acute hyperkalemia with K 6.3 on admission-now resolved with HD today 2. Hypertensive emergency on NTG Drip -now off NTG drip 3. ESRD on HD TTS schedule 4. Moderate left pleural effusion 2/2 acute fluid overload 5. H/o HTN 6. H/o HL 7. H/o DM Plan: s/p Left thoracentesis 06/23/19- 1 liter Fluid removed, BP stable s/p HD yesterday 3.5 L removed - continue HD on TTS, next HD on Friday if pt stays here continuetoday 3.5 L remove labetalol 200mg PO TID, Hydralazine 50mg PO TID, IV hydralazine 10mg Q 4 hr prn SBP more than 150 mm HG, off NTG drip, now on tele floor will follow up Consultation Date/Type/Reason Admit Date/Time Jun 21, 2019 at 19:20 Initial Consult Date 06/21/19 Type of Consult NEPHROLOGY Requesting Provider: PEDRITO THRASHER Date/Time of Note DATE: 06/24/19 TIME: 10:54 Exam/Review of Systems Exam Vitals Vital Signs Date Temp Pulse Resp B/P (MAP) Pulse Ox O2 O2 Flow FiO2 Time Delivery Rate 06/24/19 98.6 72 18 163/73 93 Room Air 07:43 (103) 06/22/19 2.0 07:19 06/21/19 21 16:12 Intake and Output 06/23/19 06/23/19 06/24/19 1515:00 23:00 07:00 IntakeIntake Total 580 ml 300 ml BalanceBalance 580 ml 300 ml Results Result Diagram: 06/24/19 0529 06/24/19 0529 Results 24hrs Laboratory Tests Test 06/23/19 11:00 06/23/19 12:01 06/23/19 17:26 06/23/19 20:02 Body Fluid Type PLEURAL FLUID Body Fluid Total 3.0 Protein Body Fluid 257 Lactate Dehydrogen ase Bedside Glucose 167 198 217 Test 06/24/19 02:14 06/24/19 05:29 06/24/19 07:39 Bedside Glucose 249 H 280 H White Blood Count 4.2 L Red Blood Count 3.88 L Hemoglobin 12.1 L Hematocrit 38.2 L Mean Corpuscular 98.5 Volume Mean Corpuscular 31.2 Hemoglobin Mean Corpuscular 31.7 L Hemoglobin Concent Red Cell 15.3 H Distribution Width Platelet Count 133 L Mean Platelet 11.9 H Volume Immature 0.500 H Granulocytes % Neutrophils % 76.6 Lymphocytes % 10.6 L Monocytes % 9.9 Eosinophils % 1.2 Basophils % 1.2 Nucleated Red 0.0 Blood Cells % Immature 0.020 Granulocytes # Neutrophils # 3.2 Lymphocytes # 0.4 L Monocytes # 0.4 Eosinophils # 0.1 Basophils # 0.1 Nucleated Red 0.0 Blood Cells # Sodium Level 134 L Potassium Level 5.7 H Chloride Level 96 L Carbon Dioxide 26 Level Anion Gap 12 Blood Urea 42 #H Nitrogen Creatinine 5.13 H Est Glomerular 11 L Filtrat Rate mL/min Glucose Level 319 #H Calcium Level 8.6 Phosphorus Level 3.9 Total Bilirubin 0.3 Direct Bilirubin 0.00 Indirect Bilirubin 0.3 Aspartate Amino 21 Transf (AST/SGOT) Alanine 18 Aminotransferase ( ALT/SGPT) Alkaline 116 Phosphatase Total Protein 6.1 Albumin 3.5 Globulin 2.60 Albumin/Globulin 1.34 Ratio Medications Medication Current Medications IV Flush (NS 3 ml) 3 ml PER PROTOCOL IV ; Start 06/21/19 at 20:30 Acetaminophen (Tylenol Tab) 650 mg Q6H PRN PO .PAIN 1-3 OR TEMP; Start 06/21/19 at 20:30 Docusate Sodium (Colace) 100 mg Q12H PRN PO .CONSTIPATION; Start 06/21/19 at 20:30 Bisacodyl (Dulcolax) 5 mg DAILY PRN PO .CONSTIPATION; Start 06/21/19 at 20:30 Heparin Sodium (Porcine) (Heparin (5000 Units/1ml)) 5,000 unit Q8 SC Last administered on 06/24/19at 08:56; Admin Dose 5,000 UNIT; Start 06/21/19 at 22:00 Diagnostic Test (Pha) (Accu-Chek) 1 ea 02 XX Last administered on 06/24/19at 02:15; Admin Dose 1 EA; Start 06/22/19 at 02:00 Insulin Aspart (Novolog Insulin Pen) NOVOLOG *MILD* ALGORITHM WITH MEALS BED TIME SC Last administered on 06/24/19at 08:55; Admin Dose 4 UNIT; Start 06/21/19 at 21:00 Albumin Human 100 ml @ 100 mls/hr WITH DIALYSIS PRN IV SBP <90 DURING DIALYSIS; Start 06/21/19 at 20:30 Sodium Chloride (NS) -To prime the dialy... DIRECTED FOR HD PRN IV HD; Start 06/21/19 at 20:30 Calcium Acetate (Phoslo) 1,334 mg WITH MEALS PO Last administered on 06/24/19at 08:27; Admin Dose 1,334 MG; Start 06/22/19 at 07:35 Hydralazine HCl (Apresoline) 50 mg TID PO Last administered on 06/23/19at 20:03; Admin Dose 50 MG; Start 06/21/19 at 22:00 Labetalol HCl (Normodyne) 200 mg TID PO Last administered on 06/23/19at 20:04; Admin Dose 200 MG; Start 06/22/19 at 09:00 Hydralazine HCl (Apresoline) 10 mg Q4H PRN IV SBP more than 150 mm hg Last administered on 06/24/19at 04:44; Admin Dose 10 MG; Start 06/21/19 at 22:00 Ondansetron HCl (Zofran Inj) 4 mg Q4H PRN IV NAUSEA AND/OR VOMITING; Start 06/22/19 at 01:00 Famotidine (Pepcid) 20 mg DAILY PO Last administered on 06/24/19at 08:27; Admin Dose 20 MG; Start 06/22/19 at 09:00 Furosemide (Lasix) 20 mg QAM PO Last administered on 06/24/19at 08:27; Admin Dose 20 MG; Start 06/22/19 at 09:00 Miscellaneous Information 1 ea NOTE XX ; Start 06/23/19 at 09:30 Glucose (Glutose) 15 gm Q15M PRN PO DECREASED GLUCOSE; Start 06/23/19 at 09:30 Glucose (Glutose) 22.5 gm Q15M PRN PO DECREASED GLUCOSE; Start 06/23/19 at 09:30 Dextrose (D50w Syringe) 25 ml Q15M PRN IV DECREASED GLUCOSE; Start 06/23/19 at 09:30 Dextrose (D50w Syringe) 50 ml Q15M PRN IV DECREASED GLUCOSE; Start 06/23/19 at 09:30 Glucagon (Glucagen) 1 mg Q15M PRN IM DECREASED GLUCOSE; Start 06/23/19 at 09:30 Glucose (Glutose) 15 gm Q15M PRN BUCCAL DECREASED GLUCOSE; Start 06/23/19 at 09:30 LILIAN HALL MD Jun 24, 2019 10:54
--- NOTE | 2019-06-24 16:54 | DS ---
Date/Time of Note Date/Time of Note DATE: 06/24/19 TIME: 16:52 Discharge Summary Admission/Discharge Info Admit Date/Time Jun 21, 2019 at 19:20 Discharge Date/Time Jun 24, 2019 at 16:47 Discharge Diagnosis L pleural effusion Pulmonary edema Hyperkalemia Patient Condition: Good Consults Dr. Servin, nephrology Procedures US-guided L thoracentesis (06/23) Hx of Present Illness Chief complaint: Swelling of the bilateral legs and left upper extremity x2 months Patient is a poor historian. This is a 68-year-old male who presents to the emergency department complaining of left upper extremity edema and bilateral lower extremity edema for the last 2 months. Patient also reports some shortness of breath. He denies any fevers chills nausea vomiting or diarrhea. Patient did report that he last had his dialysis on Friday. He goes for hemodialysis Friday. When he arrived to the emergency department he was noted to have a blood pressure of 227/73. He was started on nitroglycerin drip. His laboratory values were significant for hyperkalemia of 6.3. And a blood glucose of 407. Patient was given treatment in the ED for his hyperkalemia. A stat consult for dialysis was called to Dr. Servin of nephrology. Allergies: NKDA Medications: See [facility] Hospital Course The patient was admitted to the intensive care unit on a nitroglycerin gtt. Soon after getting urgent dialysis, his blood pressure and electrolytes normalized and he was breathing comfortably on room air. He did have recurrence of his left pleural effusion, and even though he was breathing well pulmonary recommended a tap. So he got a thoracentesis. He was discharged home in good condition. Home Meds Reported Medications Furosemide* (Furosemide*) 80 Mg Tablet, 80 MG PO QAM, #30 TAB 06/21/19 Hydralazine Hcl* (Hydralazine Hcl*) 50 Mg Tab, 50 MG PO TID PRN for ELEVATED BLOOD PRESSURE, #90 TAB 06/21/19 Labetalol Hcl* (Labetalol Hcl*) 200 Mg Tablet, 200 MG PO TID, TAB 06/21/19 Insulin Glargine* (Lantus*) 100 Unit/Ml Soln, 10 UNIT SC QHS, #1 VIAL 06/21/19 Insulin Lispro (Humalog Kwikpen) 200 Unit/1 Ml Insuln.pen, 4 UNIT SQ QAM, EA 06/21/19 Calcium Acetate* (Calcium Acetate*) 667 Mg Capsule, 1334 MG PO WITH MEALS, #60 CAP 06/21/19 Discontinued Reported Medications Pantoprazole* (Pantoprazole*) 40 Mg Tablet.dr, 40 MG PO AC BREAKFAST DINNER, TAB 08/03/17 Calcium Acetate* (Calcium Acetate*) 667 Mg Capsule, 1334 MG PO WITH MEALS, #60 CAP 08/03/17 Discontinued Scripts Hydrocodone Bit-Acetaminophen (Hydrocodone Bit-APAP) 5-325MG Tablet, 1 TAB PO Q4H PRN for MODERATE PAIN LEVEL 4-6, #24 TAB Prov:PAUL GUILLORY MD 04/14/19 Levofloxacin* (Levofloxacin*) 750 Mg Tablet, 750 MG PO Q48H, #4 TAB Prov:PAUL GUILLORY MD 04/14/19 Lactobacillus Rhamnosus* (Culturelle*) 1 Each Cap.sprink, 1 CAP PO BID for 7 Days, CAP Prov:ROXANNA CHAVEZ. 08/06/17 Lisinopril* (Lisinopril*) 10 Mg Tablet, 10 MG PO DAILY, #30 TAB Prov:ROXANNA CHAVEZ. 08/06/17 Nifedipine (Procardia Xl) 30 Mg Tab.er.24, 30 MG PO BID for 30 Days, TAB Prov:SCOTTLIBRADOYASSINE M. 08/06/17 Linagliptin (TRADJENTA) 5 Mg Tablet, 5 MG PO DAILY for 30 Days, TAB Prov:ROXANNA CHAVEZ. 08/06/17 Insulin Glargine* (Lantus*) 100 Unit/Ml Soln, 8 UNIT SC BID@08,20 for 30 Days Prov:ROXANNA CHAVEZ 08/06/17 Insulin Aspart* (Novolog Insulin Pen*) 100 Unit/Ml Soln, 3 UNIT SC WITH MEALS for 30 Days Prov:ROXANNA CHAVEZ 08/06/17 Terbinafine* (Lamisil*) 250 Mg Tablet, 250 MG PO BID for 14 Days, TAB Prov:SCOTTROXANNA Jones. 08/06/17 Follow-up Plan 1. Continue to take all medication as prescribed. 2. Continue dialysis as scheduled. 3. See your primary care doctor in 1-2 weeks. Primary Care Provider Not On Staff Doctor Time spent on discharge: > 30 minutes Pending Labs Laboratory Tests Test 06/23/19 17:26 06/23/19 20:02 06/24/19 02:14 06/24/19 05:29 Bedside 198 217 249 Glucose mg/dL (70-220) mg/dL (70-220) mg/dL (70-220) White Blood 4.2 Count 10^3/ul (4.8-1 0.8) Red Blood 3.88 Count 10^6/ul (4.70- 6.10) Hemoglobin 12.1 g/dl (14.0-18. 0) Hematocrit 38.2 % (42.0-52.0) Mean 98.5 Corpuscular fl (82.0-101.0 Volume ) Mean 31.2 Corpuscular pg (29.0-33.0) Hemoglobin Mean 31.7 Corpuscular g/dl (32.0-37. Hemoglobin Conc 0) ent Red Cell 15.3 Distribution % (11.5-14.5) Width Platelet Count 133 10^3/UL (140-4 15) Mean Platelet 11.9 Volume fl (7.4-10.4) Immature 0.500 Granulocytes % % (0.001-0.429 ) Neutrophils % 76.6 % (39.0-77.0) Lymphocytes % 10.6 % (15.0-51.0) Monocytes % 9.9 % (0.0-11.0) Eosinophils % 1.2 % (0.0-7.0) Basophils % 1.2 % (0.0-2.0) Nucleated Red 0.0 Blood Cells % /100WBC (0.0-0 .0) Immature 0.020 Granulocytes # 10^3/ul (0.0-0 .031) Neutrophils # 3.2 10^3/ul (1.6-7 .5) Lymphocytes # 0.4 10^3/ul (0.8-2 .9) Monocytes # 0.4 10^3/ul (0.3-0 .9) Eosinophils # 0.1 10^3/ul (0.0-0 .5) Basophils # 0.1 10^3/ul (0.0-0 .1) Nucleated Red 0.0 Blood Cells # 10^3/ul (0.0-0 .0) Sodium Level 134 mmol/L (135-14 4) Potassium 5.7 Level mmol/L (3.5-5. 1) Chloride Level 96 mmol/L (97-110 ) Carbon Dioxide 26 Level mmol/L (21-31) Anion Gap 12 (5-13) Blood Urea 42 Nitrogen mg/dl (7-20) Creatinine 5.13 mg/dl (0.61-1. 24) Est Glomerular 11 Filtrat mL/min (>60) Rate mL/min Glucose Level 319 mg/dl (70-220) Calcium Level 8.6 mg/dl (8.4-10. 2) Phosphorus 3.9 Level mg/dl (2.5-4.9 ) Total 0.3 Bilirubin mg/dl (0.2-1.3 ) Direct 0.00 Bilirubin mg/dl (0.00-0. 20) Indirect 0.3 Bilirubin mg/dl (0-1.1) Aspartate Amino 21 Transf (AST/SGO IU/L (15-46) T) Alanine 18 Aminotransferas IU/L (13-69) e (ALT/SGPT) Alkaline 116 Phosphatase IU/L (42-121) Total Protein 6.1 g/dl (6.1-8.1) Albumin 3.5 g/dl (3.3-4.9) Globulin 2.60 g/dl (1.3-3.2) Albumin/Globuli 1.34 n Ratio Test 06/24/19 07:39 06/24/19 11:46 Bedside 280 232 Glucose mg/dL (70-220) mg/dL (70-220) PAUL GUILLORY MD Jun 24, 2019 16:54
== END 2019-06-24 16:47 | disposition home or self-care (01) | DRG 682 ==
LOC: E/R 13:31 → ICU 19:20 → EDBEDREQSVC 20:09 → TEL 06-22 18:18
PROVIDERS: ADMIT Family Medicine; ATTEND Family Medicine
PROC: 5A1D70Z Performance of Urinary Filtration, Intermittent, Less than 6 Hours Per Day (ICD-10-PCS; 2019-06-21)
PROC: 0W9B3ZZ Drainage of Left Pleural Cavity, Percutaneous Approach (ICD-10-PCS; principal; 2019-06-23)
DX: I12.0 Hypertensive chronic kidney disease with stage 5 chronic kidney disease or end stage renal disease (principal); N18.6 End stage renal disease; I16.1 Hypertensive emergency; J90 Pleural effusion, not elsewhere classified; J81.1 Chronic pulmonary edema; E87.5 Hyperkalemia; E11.22 Type 2 diabetes mellitus with diabetic chronic kidney disease; D64.9 Anemia, unspecified; E78.5 Hyperlipidemia, unspecified; Z99.2 Dependence on renal dialysis; Z79.4 Long term (current) use of insulin
CPT/HCPCS: 36415; 71045; 71046; 76942; 80048; 80053; 80061; 82306; 82962; 83036; 83615; 83735; 84100; 84157; 84443; 85025; 85610; 85730; 86706; 87070; 87081; 87102; 87116; 87340; 88104; 88305; 90935; 93005; 93306; 93970; 93971; 94664; 96374; 96375; J0360; J1644; J1815; J2405